=== PATIENT | male | born 1945 | race Caucasian/White ===

== ENCOUNTER 2022-04-03 11:06 | Outpatient (CLI) | payer MEDICARE, BC, SELFPAY ==
[2022-04-03 14:15] LABS: TSH With Reflex to FT4* 0.063 uIU/mL (0.270-4.200)
[2022-04-03 16:23] LABS: Free T4 Free Thyroxine* 1.32 ng/dL (0.70-1.85)
== END 2022-04-03 11:07 | disposition home or self-care (01) ==
LOC: NFLDREF 11:19
PROVIDERS: PCP Internal Medicine; Visit Provider Internal Medicine
DX: F03.90 Unspecified dementia, unspecified severity, without behavioral disturbance, psychotic disturbance, mood disturbance, and anxiety (principal); E11.9 Type 2 diabetes mellitus without complications; I10 Essential (primary) hypertension; R53.1 Weakness; E11.42 Type 2 diabetes mellitus with diabetic polyneuropathy; R53.83 Other fatigue
CPT/HCPCS: 84439; 84443

== ENCOUNTER 2022-04-07 12:56 | Outpatient (CLI) | payer MEDICARE, BC, SELFPAY ==
--- OUTSIDE RECORDS SUMMARY | 2022-04-29 15:02 | XMS_ITS | Encounter Summary ---
:1945 Author Organization [facility] Address [address] [place] [address] Care Team Providers Name Role Phone Unavailable Primary Care Provider Unavailable Encounter Details Date Type Department Care Team Description 07/30/2021 Orders Only Department of Sleep Medicine Juany Valladares M.D., in [facility] M.P.H [address] [place] [address] [place], [place] [phone] (Wo rk) Social History Tobacco Use Types Packs/Day Years Used Date Smoking Tobacco: Never Assessed Sex Assigned at Date Recorded Not on file documented as of this encounter Plan of Treatment Not on filedocumented as of this encounter Visit Diagnoses Not on filedocumented in this encounter
--- OUTSIDE RECORDS SUMMARY | 2022-04-29 15:02 | XMS_ITS | Encounter Summary ---
:1945 Author Organization [facility] Address [address] [place] [address] Care Team Providers Name Role Phone Unavailable Primary Care Provider Unavailable Reason for Referral Outpatient (Routine) - Closed Specialty Diagnoses / Procedures Referred By Contact Refer red To Contact Neurology Diagnoses Loss Memory Personality Change Juany Valladares M.D., [facility] M.P.H. [address] [place] [address] Referral ID Status Reason Start Date Expiration Date Visits Requ ested Visits Authorized [id number] Closed 11/07/2021 11/07/2022 1 1 TAL MARKETING EXECUTIVE Reason for Visit Reason Comments Memory Loss Follow up from Was seen for testing in [place] 10/16/21. Outpatient (Routine) - Closed Specialty Diagnoses / Procedures Referred By Contact Refer red To Contact Neurology Juany Valladares M.D ., M.P.H. [facility] [address] [place] [address] Referral ID Status Reason Start Date Expiration Date Visits Requ ested Visits Authorized [id number] Closed 07/31/2021 07/31/2022 1 1 Encounter Details Date Type Department Care Team Description 11/07/2021 Office Visit Department of Juany Valladares Loss Memor y (Primary Dx); Neurology in [place], M.P.H. Personality Change [place], [place] [address] [phone] Social History Tobacco Use Types Packs/Day Years Used Date Smoking Tobacco: Former Cigarettes Quit : 1980 Smokeless Tobacco: Never Sex Assigned at Date Recorded Not on file documented as of this encounter Last Filed Vital Signs Vital Sign Reading Time Taken Comments Blood Pressure 135/59 11/07/2021 12:51 PM DIGITAL MARKETING EXECUTIVE Pulse 74 11/07/2021 12:51 PM DIGITAL MARKETING EXECUTIVE Temperature - - Respiratory Rate - - Oxygen Saturation - - Inhaled Oxygen Concentration - - Weight 83.4 kg (183 lb 13.8 oz) 11/07/2021 12:51 PM DIGITAL MARKETING EXECUTIVE Height - - Body Mass Index 29.69 07/31/2021 12:55 PM DIGITAL MARKETING EXECUTIVE documented in this encounter Progress Notes Juany Valladares M.D., M.P.H. - 11/07/2021 1:00 PM CST SUBJECTIVE CHIEF COMPLAINT / REASON FOR VISIT Alex Olivas is a 76 y.o. male who presents for evaluation of Memory Loss (Follow up from /Was seen for testing in [place] 10/16/21.). HISTORY OF PRESENT ILLNESS This patient returns with his for follow-up after his neuropsychometric testing and MRI brain. No was initially concerned about the personality changes in apathy reflecting frontotemporal dementia. Dr. carmella Pérez completed his assessment and concluded that his performance was below expectationsbut his greatest difficulty was semantic fluency and reasonably argued that this might be due to hislanguage stick background, being a seneca speaker of [place]ian. He went on to say that he could not rule out the possibility of a progressive aphasia component but he was doubtful. He did think that the results likely reflected diminished executive function that might be associated with maximal involve the anterior brain regions. His MRI brain shows nonspecific but diffuse atrophy. The is frustrated that she feels like she has a child at home and express the several times during the visit. I suggested that we send this patient [place] a few remaining blood tests to prepare for that visit. The is in favor of this plan and the patient does not really express much preference either way. No past medical history on file. No past surgical history on file. MEDICATIONS: Current Outpatient Medications: ??? amoxicillin (AMOXIL) 500 mg capsule, Take 500 mg by mouth once. 2000 MG ONCE, Disp: , Rfl: ??? aspirin [address] tablet, Take 81 mg by mouth daily., Disp: , Rfl: ??? B complex-vitamins (BALANCE B-50) tablet, daily., Disp: , Rfl: ??? clotrimazole (LOTRIMIN) 1 % cream, Apply 1 application topically 2 (two) times a day. To affected area., Disp: , Rfl: ??? gabapentin (NEURONTIN) 300 mg capsule, Take 300 mg by mouth 2 (two) times a day. Take 600 mg twice A day., Disp: , Rfl: ??? hydroCHLOROthiazide (HYDRODIURIL) 25 mg tablet, Take 25 mg by mouth daily., Disp: , Rfl: ??? insulin glargine (Lantus Solostar U-100 Insulin) 100 unit/mL (3 mL) injection, Inject 24 Units under the skin at bedtime., Disp: , Rfl: ??? insulin lispro 100 unit/mL injection, 20 units subcutaneously daily patient states, Disp: , Rfl: ??? insulin lispro protamin-lispro (HumaLOG MIX 75-25 KwikPen) 100 unit/mL (75- 25) injection, 20 unit subq daily, Disp: , Rfl: ??? magnesium oxide (MAG-OX) 250 mg of magnesium tablet, Take 250 mg by mouth daily., Disp: , Rfl: ??? multivitamin tablet, Take 1 tablet by mouth daily., Disp: , Rfl: ??? naproxen (NAPROSYN) 500 mg tablet, Take 500 mg by mouth 2 (two) times a day., Disp: , Rfl: ??? omega-3 fatty acids-fish oil 340-1,000 mg per capsule, Take 1 capsule by mouth daily., Disp: , Rfl: ??? amLODIPine-benazepril (LOTREL) 10-20 mg per capsule, Take 1 capsule by mouth daily., Disp: , Rfl: ??? cephalexin (KEFLEX) 500 mg capsule, 2,000 mg once., Disp: , Rfl: ALLERGY: No Known Allergies No family history on file. Social History Socioeconomic History ??? Marital status: Spouse name: Not on file ??? Number of children: Not on file ??? Years of education: Not on file ??? Highest education level: Not on file Occupational History ??? Not on file Tobacco Use ??? Smoking status: Former Smoker Types: Cigarettes Quit date: 1980 Years since quittin.1 ??? Smokeless tobacco: Never Used Substance and Sexual Activity ??? Alcohol use: Not on file ??? Drug use: Not on file ??? Sexual activity: Not on file Other Topics Concern ??? Not on file Social History Narrative ??? Not on file Social Determinants of Health Financial Resource Strain: Not on file Food Insecurity: Not on file Transportation Needs: Not on file Physical Activity: Not on file Stress: Not on file Social Connections: Not on file Intimate Partner Violence: Not on file Housing Stability: Not on file @ OBJECTIVE Vitals: 11/07/21 1251 BP: 135/59 BP Location: Left arm Patient Position: Sitting Cuff Size: Large Pulse: 74 Weight: 83.4 kg PHYSICAL EXAM COGNITION: Alert and cooperative. CRANIAL NERVES: optical effects camera operator II-XII intact and symmetric. MOTOR: Full strength throughout the upper and lower extremities bilaterally both proximally and distally. Normal tone. No pronator drift. No tremor. REFLEXES: Normal and symmetric at the biceps, triceps, brachioradialis, knees, and ankles. SENSORY: normal sensation to touch CEREBELLAR: ARMs-normal GAIT: Normal Impression: Encounter Diagnoses Name Primary? Loss Memory Yes ??? Personality Change I have made a referral to see the neuro cognitive specially group and I will see them back after that evaluation is completed I explained that there may be additional testing including a PET scan as further evaluation continues. Reviewed the neuropsych testing gave him a printed copy along with the MRI which I reviewed both in terms of text into images. I personally spent 30 minutes in care of the patient today. Time includes both non face to face and face to face patient care. Juany Valladares M.D., M.P.H. TAL MARKETING EXECUTIVE documented in this encounter Plan of Treatment Scheduled Referrals Name Type Priority Associated Diagnoses Order [facility] Neurology - Outpatient Referral Routine Loss Memory Expected: Cognitive and Personality Change 11/07/19 dementia consult (Approximat miguel angel), (clinic) Expires: 02/04/2023 documented as of this encounter Results Creatinine with Estimated GFR (11/07/2021 1:45 PM DIGITAL MARKETING EXECUTIVE) athologist Signature Creatinine, P 0.89 0.74 - 1.35 11/07/2021 [place] mg/dL 4:04 PM DIGITAL MARKETING EXECUTIVE eGFR-Black/Afri >90 >=60 11/07/2021 [place] can Nigerian mL/min/BSA 4:04 PM DIGITAL MARKETING EXECUTIVE Comment: ----ADDITIONAL INFORMATION---- Estimated GFR calculated using the 2009 CKD_EPI creatinine equation. eGFR Non-Black/ 83 >=60 mL/min/BSA 4:04 PM DIGITAL MARKETING EXECUTIVE OWAT Comment: ----ADDITIONAL INFORMATION---- Estimated GFR calculated using the 2009 CKD_EPI creatinine equation. Specimen Anatomical Collection Method Collection Time Receive d Time (Source) Location / / Volume Laterality Blood (Blood, 11/07/2021 1:45 PM 11/07/19 3:32 Venous) DIGITAL MARKETING EXECUTIVE PM DIGITAL MARKETING EXECUTIVE Juany Valladares M.D., M.P.H. LAB BLOOD ADD-ON Performing Organization Address City/State/ZIP Code Phon e Number [facility] [address] [place] [address] [place] [address] System in [place] [address] Folate (11/07/2021 1:45 PM DIGITAL MARKETING EXECUTIVE) athologist Signature Folate, S >20.0 >=4.0 mcg/L 11/07/2021 AUST 10:26 PM DIGITAL MARKETING EXECUTIVE Comment: Biotin has been identified by the jarrod avila as a potential interfering substance. ??Higher concentr ations of biotin may be found in multivitamins, hair/nail supple ments, and workout supplements. ??If the result does not [facility] clinical observations, repeat testing after patient refrains fr om the use of supplements for at least 12 hours. Specimen Anatomical Collection Method Collection Time Receive d Time (Source) Location / / Volume Laterality Blood (Blood, 11/07/2021 1:45 PM 11/07/19 9:42 Venous) DIGITAL MARKETING EXECUTIVE PM DIGITAL MARKETING EXECUTIVE Juany Valladares M.D., M.P.H. LAB BLOOD ADD-ON Performing Organization Address City/State/ZIP Code Phon e Number [facility]- [address] [place] [address] [facility] [place] [address] [facility] [address] Vitamin B12 Assay (11/07/2021 1:45 PM DIGITAL MARKETING EXECUTIVE) athologist Signature Vitamin B12 [phone] 11/07/2021 AUST Assay, S ng/L 10:21 PM DIGITAL MARKETING EXECUTIVE Comment: Biotin has been identified by the jarrod avila as a potential interfering substance. ??Higher concentr ations of biotin may be found in multivitamins, hair/nail supple ments, and workout supplements. ??If the result does not ma tch clinical observations, repeat testing after patient refrains fr om the use of supplements for at least 12 hours. Specimen Anatomical Collection Method Collection Time Receive d Time (Source) Location / / Volume Laterality Blood (Blood, 11/07/2021 1:45 PM 11/07/19 9:42 Venous) DIGITAL MARKETING EXECUTIVE PM DIGITAL MARKETING EXECUTIVE Juany Valladares M.D., M.P.H. LAB BLOOD ADD-ON Performing Organization Address City/[facility]/ZIP Code Phon e Number [facility]- [address] [place] [address] [facility] [place] [address] [facility] [address] (ABNORMAL) Thyroid Function [place] (11/07/2021 1:45 PM DIGITAL MARKETING EXECUTIVE) athologist Signature TSH, Sensitive 0.2 (L) 0.3 - 4.2 11/07/2021 [place] mIU/L 4:48 PM DIGITAL MARKETING EXECUTIVE Specimen Anatomical Collection Method Collection Time Receive d Time (Source) Location / / Volume Laterality Blood (Blood, 11/07/2021 1:45 PM 11/07/19 3:32 Venous) DIGITAL MARKETING EXECUTIVE PM DIGITAL MARKETING EXECUTIVE Juany Valladares M.D., M.P.H. LAB BLOOD ADD-ON Performing Organization Address City/State/ZIP Code Phon e Number [facility]- [address] [place] [address] [place] [address] System in [place] [address] [facility] Potassium (11/07/2021 1:45 PM DIGITAL MARKETING EXECUTIVE) athologist Signature Potassium, P 4.4 3.6 - 5.2 11/07/2021 [place] mmol/L 4:04 PM DIGITAL MARKETING EXECUTIVE Specimen Anatomical Collection Method Collection Time Receive d Time (Source) Location / / Volume Laterality Blood (Blood, 11/07/2021 1:45 PM 11/07/19 3:32 Venous) DIGITAL MARKETING EXECUTIVE PM DIGITAL MARKETING EXECUTIVE Juany Valladares M.D., M.P.H. LAB BLOOD ADD-ON Performing Organization Address City/State/ZIP Code Phon e Number [facility]- [address] [place] [address] [place] [address] System in [place] [address] [facility] Sodium (11/07/2021 1:45 PM DIGITAL MARKETING EXECUTIVE) athologist Signature Sodium, P 141 135 - 145 11/07/2021 4:04 [place] mmol/L PM DIGITAL MARKETING EXECUTIVE Specimen Anatomical Collection Method Collection Time Receive d Time (Source) Location / / Volume Laterality Blood (Blood, 11/07/2021 1:45 PM 11/07/19 3:32 Venous) DIGITAL MARKETING EXECUTIVE PM DIGITAL MARKETING EXECUTIVE Juany Valladares M.D., M.P.H. LAB BLOOD ADD-ON Performing Organization Address City/State/ZIP Code Phon e Number [facility]- [address] [place] [address] [place] [address] System in [place] [address] CBC with Differential, Blood (11/07/2021 1:45 PM DIGITAL MARKETING EXECUTIVE) athologist Signature Hemoglobin 14.8 13.2 - 11/07/2021 FB60 16.6 g/dL 2:40 PM DIGITAL MARKETING EXECUTIVE Hematocrit 42.1 38.3 - 11/07/2021 FB60 48.6 % 2:40 PM DIGITAL MARKETING EXECUTIVE Erythrocytes 4.55 4.35 - 11/07/2021 FB60 5.65 2:40 PM DIGITAL MARKETING EXECUTIVE x10(12)/L MCV 92.5 78.2 - 11/07/2021 FB60 97.9 fL 2:40 PM DIGITAL MARKETING EXECUTIVE RBC Distrib Width 12.5 11.8 - 11/07/2021 FB60 14.5 % 2:40 PM DIGITAL MARKETING EXECUTIVE Platelet Count 139 135 - 317 11/07/2021 FB60 x10(9)/L 2:40 PM DIGITAL MARKETING EXECUTIVE Leukocytes 7.7 3.4 - 9.6 11/07/2021 FB60 x10(9)/L 2:40 PM DIGITAL MARKETING EXECUTIVE Neutrophils 5.33 1.56 - 11/07/2021 FB60 6.45 2:40 PM DIGITAL MARKETING EXECUTIVE x10(9)/L Lymphocytes 1.67 0.95 - 11/07/2021 FB60 3.07 2:40 PM DIGITAL MARKETING EXECUTIVE x10(9)/L Monocytes 0.54 0.26 - 11/07/2021 FB60 0.81 2:40 PM DIGITAL MARKETING EXECUTIVE x10(9)/L Eosinophils 0.12 0.03 - 11/07/2021 FB60 0.48 2:40 PM DIGITAL MARKETING EXECUTIVE x10(9)/L Basophils 0.01 0.01 - 11/07/2021 FB60 0.08 2:40 PM DIGITAL MARKETING EXECUTIVE x10(9)/L Specimen Anatomical Collection Method Collection Time Receive d Time (Source) Location / / Volume Laterality Blood (Blood, 11/07/2021 1:45 PM 11/07/19 22 1:45 Venous) DIGITAL MARKETING EXECUTIVE PM DIGITAL MARKETING EXECUTIVE Juany Valladares M.D., M.P.H. LAB BLOOD ADD-ON Performing Organization Address City/State/ZIP Code Phon e Number [facility]- [address] [place] [address] [facility] [address] [place] [address] System in [place] [address] documented in this encounter Visit Diagnoses Diagnosis Loss Memory - Primary Personality Change documented in this encounter
--- OUTSIDE RECORDS SUMMARY | 2022-04-29 15:02 | XMS_ITS | Encounter Summary ---
:1945 Author Organization [facility] Address [address] [place] [address] Care Team Providers Name Role Phone Elsewhere, Pcp Primary Care Provider Unavailable Reason for Visit Reason Comments Pre-visit Intake Encounter Details Date Type Department Care Team Description 01/21/2022 Clinical Communication Visit Review in Pr e-visit Intake [address] [id number] Social History Tobacco Use Types Packs/Day Years Used Date Smoking Tobacco: Former Cigarettes Quit : 1980 Smokeless Tobacco: Never Sex Assigned at Date Recorded Not on file documented as of this encounter Plan of Treatment Not on filedocumented as of this encounter Visit Diagnoses Not on filedocumented in this encounter Care Teams Investigation Division Captain Relationship Specialty Start Date End Date Elsewhere, Pcp PCP - General Internal Medicine 01/21/22 documented as of this encounter
--- OUTSIDE RECORDS SUMMARY | 2022-04-29 15:02 | XMS_ITS | Encounter Summary ---
:1945 Author Organization [facility] Address [address] [place] [address] Care Team Providers Name Role Phone Unavailable Primary Care Provider Unavailable Reason for Referral MRI/CAT/PET Scan (Routine) - Closed Specialty Diagnoses / Procedures Referred By Contact Refer red To Contact Radiology Diagnoses Loss Memory Ju[facility] Valladares M.D., [facility] [place] [facility] Procedures MR Brain without IV Contrast [place] MRI BRAIN WO CNTRST HC MRI BRAIN WO CNTRST M.P.H. [address] [place] [address] Referral ID Status Reason Start Date Expiration Date Visits Requ ested Visits Authorized [id number] Closed 07/31/2021 07/31/2022 1 1 CTOR OF PREMIUM SEAT SALES Reason for Visit MRI/CAT/PET Scan (Routine) - Closed Specialty Diagnoses / Procedures Referred By Contact Refer red To Contact Radiology Diagnoses Loss Memory Ju[facility] Valladares M.D., [facility] [place] [facility] Procedures MR Brain without IV Contrast [place] MRI BRAIN WO CNTRST HC MRI BRAIN WO CNTRST M.P.H. [address] [place] [address] Referral ID Status Reason Start Date Expiration Date Visits Requ ested Visits Authorized [id number] Closed 07/31/2021 07/31/2022 1 1 Encounter Details Date Type Department Care Team Description 08/08/2021 Hospital Encounter Department of Radiology Juany Valladares, Loss Memory in [facility] mona Chan, M.P.H. [address] [place] [address] [place] [phone] Social History Tobacco Use Types Packs/Day Years Used Date Smoking Tobacco: Former Cigarettes Quit : 1980 Smokeless Tobacco: Never Sex Assigned at Date Recorded Not on file documented as of this encounter Medications at Time of Discharge Medication Sig Dispensed Refills Start Date End Date amLODIPine-benazepril Take 1 capsule by 0 017 (LOTREL) 10-20 mg per mouth daily. capsule aspirin [address] tablet Take 81 mg by mouth 0 daily. B complex-vitamins daily. 0 (BALANCE B-50) tablet gabapentin (NEURONTIN) 300 Take 600 mg by mouth 0 03/23/2018 mg capsule 2 (two) times a day. Take 600 mg twice A day. hydroCHLOROthiazide Take 25 mg by mouth 0 021 (HYDRODIURIL) 25 mg tablet daily. insulin glargine (Lantus Inject 24 Units 0 2017 Solostar U-100 Insulin) under the skin at 100 unit/mL (3 mL) bedtime. injection insulin lispro 100 unit/mL 20 units 0 8 injection subcutaneously daily patient states insulin lispro 20 unit subq daily 0 05/02/2021 protamin-lispro (HumaLOG MIX 75-25 KwikPen) 100 unit/mL (75-25) injection magnesium oxide (MAG-OX) Take 250 mg by mouth 0 250 mg of magnesium tablet daily. multivitamin tablet Take 1 tablet by 0 04/10/2017 mouth daily. naproxen (NAPROSYN) 500 mg Take 500 mg by mouth 0 03/13/2021 tablet 2 (two) times a day. omega-3 fatty acids-fish Take 1 capsule by 0 09/2017 oil 340-1,000 mg per mouth daily. capsule amoxicillin (AMOXIL) 500 Take 500 mg by mouth 0 0 10/11/2020 01/21/2022 mg capsule once. 2000 MG ONCE cephalexin (KEFLEX) 500 mg 2,000 mg once. 0 12/1001/21/2022 capsule documented as of this encounter Plan of Treatment Not on filedocumented as of this encounter Procedures Procedure Name Priority Date/Time Associated Comments Diagnosis MR BRAIN WITHOUT RAD - Routine 08/08/2021 2:17 Loss Memory Results for this IV CONTRAST (most inpatients PM DIRECTOR OF PREMIUM SEAT SALES procedure a re in and all the results outpatients) section. documented in this encounter Results MR Brain without IV Contrast (08/08/2021 2:17 PM DIRECTOR OF PREMIUM SEAT SALES) Anatomical Region Laterality Modality Head, Brain, Neuroradiology RST LOS, Neuroradiology ARZ N/A Magnetic Resonance LOS, Neuroradiology FLA LOS Specimen (Source) Anatomical Collection Method Collection Time Re ceived Time Location / / Volume Laterality 08/08/2021 3:41 PM DIRECTOR OF PREMIUM SEAT SALES Impressions 08/08/2021 3:47 PM DIRECTOR OF PREMIUM SEAT SALES Moderate small vessel ischemic change and moderate-advanced cerebral and cerebellar parenchymal volume loss. Narrative 08/08/2021 3:47 PM DIRECTOR OF PREMIUM SEAT SALES EXAM: MR BRAIN WITHOUT IV CONTRAST COMPARISON: None. FINDINGS: Scattered areas of FLAIR signa l abnormality in the cerebral white matter most consistent with small vessel ischemic disease. Moderate-advanced cerebral and cerebellar parenchymal volu me loss. No restricted diffusion or abnormal hemo siderin deposition. The paranasal sinuses and mastoid air cells are clear. Procedure Note Gabriela Zepeda M.D. - 08/08/2021Forma tting of this note might be different from the original. EXAM: MR BRAIN WITHOUT IV CONTRAST COMPARISON: None. FINDINGS: Scattered areas of FLAIR signa l abnormality in the cerebral white matter most consistent with small vessel ischemic disease. Moderate-advanced cerebral and cerebellar parenchymal volu me loss. No restricted diffusion or abnormal hemo siderin deposition. The paranasal sinuses and mastoid air cells are clear. IMPRESSION: Moderate small vessel ischemic change an d moderate-advanced cerebral and cerebellar parenchymal volume loss. Juany Valladares M.D., M.P.H. IMG MRI PROCEDURES documented in this encounter Visit Diagnoses Diagnosis Loss Memory documented in this encounter
--- OUTSIDE RECORDS SUMMARY | 2022-04-29 15:02 | XMS_ITS | Encounter Summary ---
:1945 Author Organization [facility] Address [address] [place] [address] Care Team Providers Name Role Phone Unavailable Primary Care Provider Unavailable Encounter Details Date Type Department Care Team Description 11/07/2021 Hospital Encounter Department of Juany Valladares Mem; Laboratory Medicine Rocio Gould, Personal ity Change in [place] [facility] [place] [address] [place] [id number] Social History Tobacco Use Types Packs/Day Years [...] mg 2,000 mg once. 0 12/1001/21/2022 capsule clotrimazole (LOTRIMIN) 1 Apply 1 application 0 0 10/25/2021 01/21/2022 % cream topically 2 (two) times a day. To affected area. documented as of this encounter Plan of Treatment Not on filedocumented as of this encounter Procedures Procedure Name Priority Date/Time Associated Comments Diagnosis MD T4 FREE Routine 11/07/2021 1:45 PM Results f or this TASSEL MAKING MACHINE OPERATOR procedure are i n the results section. THYROID FUNCTION Routine 11/07/2021 1:45 PM Loss Memory Results for this CASCADE, S TASSEL MAKING MACHINE OPERATOR Personality Change procedure are in the results section. CBC WITH Routine 11/07/2021 1:45 PM Loss Memory Results for this DIFFERENTIAL, B TASSEL MAKING MACHINE OPERATOR Personality Change proced ure are in the results section. SODIUM, S/P Routine 11/07/2021 1:45 PM Loss Memory Results for this TASSEL MAKING MACHINE OPERATOR Personality Change procedure are in the results section. POTASSIUM, S/P Routine 11/07/2021 1:45 PM Loss Memory Results for this TASSEL MAKING MACHINE OPERATOR Personality Change procedure are in the results section. FOLATE, S Routine 11/07/2021 1:45 PM Loss Memory Results for this TASSEL MAKING MACHINE OPERATOR Personality Change procedure are in the results section. VITAMIN B12 ASSAY, S Routine 11/07/2021 1:45 PM Loss Mem ory Results for this TASSEL MAKING MACHINE OPERATOR Personality Change procedure are in the results section. CREATININE WITH Routine 11/07/2021 1:45 PM Loss Memory Results for this EGFR, S/P TASSEL MAKING MACHINE OPERATOR Personality Change procedure are in the results section. documented in this encounter Results T4 (Thyroxine), Free, Serum (11/07/2021 1:45 PM TASSEL MAKING MACHINE OPERATOR) athologist Signature T4 (Thyroxine), 1.2 0.9 - 1.7 11/07/2021 OWAT Free, S ng/dL 5:22 PM TASSEL MAKING MACHINE OPERATOR Comment: Biotin has been identified by the jarrod avila as a potential interfering substance. ??Higher concentr ations of biotin may be found in multivitamins, hair/nail supple ments, and workout supplements. ??If the result does not ma [facility] clinical observations, repeat testing after patient refrains fr om the use of supplements for at least 12 hours. Specimen Anatomical Collection Method Collection Time Receive d Time (Source) Location / / Volume Laterality Blood 11/07/2021 1:45 PM 3:32 TASSEL MAKING MACHINE OPERATOR PM TASSEL MAKING MACHINE OPERATOR Juany Valladares M.D., M.P.H. LAB BLOOD ADD-ON Performing Organization Address City/State/ZIP Code Phon e Number [facility]- [address] [place] [address] [place] [address] System in [place] [address] Creatinine with Estimated GFR (11/07/2021 1:45 PM TASSEL MAKING MACHINE OPERATOR) athologist Signature Creatinine, P 0.89 0.74 - 1.35 11/07/2021 [place] mg/dL 4:04 PM TASSEL MAKING MACHINE OPERATOR eGFR-Black/Afri >90 >=60 11/07/2021 [place] can [place] Citizen mL/min/BSA 4:04 PM TASSEL MAKING MACHINE OPERATOR Comment: ----ADDITIONAL INFORMATION---- Estimated GFR calculated using the 2009 CKD_EPI creatinine equation. eGFR Non-Black/ 83 >=60 mL/min/BSA 4:04 PM TASSEL MAKING MACHINE OPERATOR [facility] Comment: ----ADDITIONAL INFORMATION---- Estimated GFR calculated using the 2009 CKD_EPI creatinine equation. Specimen Anatomical Collection Method Collection Time Receive d Time (Source) Location / / Volume Laterality Blood (Blood, 11/07/2021 1:45 PM 11/07/19 3:32 Venous) TASSEL MAKING MACHINE OPERATOR PM TASSEL MAKING MACHINE OPERATOR Juany Valladares M.D., M.P.H. LAB BLOOD ADD-ON Performing Organization Address City/State/ZIP Code Phon e Number [facility]- [address] [place] [address] [place] [address] System in [place] [address] Folate (11/07/2021 1:45 PM TASSEL MAKING MACHINE OPERATOR) P athologist Signature Folate, S >20.0 >=4.0 mcg/L 11/07/2021 AUST 10:26 PM TASSEL MAKING MACHINE OPERATOR Comment: Biotin has been identified by the jarrod avila as a potential interfering substance. ??Higher concentr ations of biotin may be found in multivitamins, hair/nail supple ments, and workout supplements. ??If the result does not ma tc clinical observations, repeat testing after patient refrains fr om the use of supplements for at least 12 hours. Specimen Anatomical Collection Method Collection Time Receive d Time (Source) Location / / Volume Laterality Blood (Blood, 11/07/2021 1:45 PM 11/07/19 9:42 Venous) TASSEL MAKING MACHINE OPERATOR PM TASSEL MAKING MACHINE OPERATOR Juany Valladares M.D., M.P.H. LAB BLOOD ADD-ON Performing Organization Address City/State/ZIP Code Phon e Number [facility]- [address] [place] [address] [facility] [place], [place] [id number] [place] [address] Vitamin B12 Assay (11/07/2021 1:45 PM TASSEL MAKING MACHINE OPERATOR) P athologist Signature Vitamin B12 [phone] - 1245 11/07/2021 AUST Assay, S ng/L 10:21 PM TASSEL MAKING MACHINE OPERATOR Comment: Biotin has been identified by the jarrod avila as a potential interfering substance. ??Higher concentr ations of biotin may be found in multivitamins, hair/nail supple ments, and workout supplements. ??If the result does not ma tc clinical observations, repeat testing after patient refrains fr om the use of supplements for at least 12 hours. Specimen Anatomical Collection Method Collection Time Receive d Time (Source) Location / / Volume Laterality Blood (Blood, 11/07/2021 1:45 PM 11/07/19 9:42 Venous) TASSEL MAKING MACHINE OPERATOR PM TASSEL MAKING MACHINE OPERATOR Juany Valladares M.D., M.P.H. LAB BLOOD ADD-ON Performing Organization Address City/State/ZIP Code Phon e Number [facility]- [address] [place] [address] [facility] [place] [address] [facility] [address] (ABNORMAL) Thyroid Function Cache (11/07/2021 1:45 PM TASSEL MAKING MACHINE OPERATOR) athologist Signature TSH, Sensitive 0.2 (L) 0.3 - 4.2 11/07/2021 [place] mIU/L 4:48 PM TASSEL MAKING MACHINE OPERATOR Specimen Anatomical Collection Method Collection Time Receive d Time (Source) Location / / Volume Laterality Blood (Blood, 11/07/2021 1:45 PM 11/07/19 3:32 Venous) TASSEL MAKING MACHINE OPERATOR PM TASSEL MAKING MACHINE OPERATOR Juany Valladares M.D., M.P.H. LAB BLOOD ADD-ON Performing Organization Address City/State/ZIP Code Phon e Number [facility]- [address] [place] [facility] [place] [address] [place] [address] System in [place] [address] Potassium (11/07/2021 1:45 PM TASSEL MAKING MACHINE OPERATOR) athologist Signature Potassium, P 4.4 3.6 - 5.2 11/07/2021 [place] mmol/L 4:04 PM TASSEL MAKING MACHINE OPERATOR Specimen Anatomical Collection Method Collection Time Receive d Time (Source) Location / / Volume Laterality Blood (Blood, 11/07/2021 1:45 PM 11/07/19 3:32 Venous) TASSEL MAKING MACHINE OPERATOR PM TASSEL MAKING MACHINE OPERATOR Juany Valladares M.D., M.P.H. LAB BLOOD ADD-ON Performing Organization Address City/State/ZIP Code Phon e Number [facility]- [address] [place] [address] [place] [address] System in [place] [address] Sodium (11/07/2021 1:45 PM TASSEL MAKING MACHINE OPERATOR) athologist Signature Sodium, P 141 135 - 145 11/07/2021 4:04 [place] mmol/L PM TASSEL MAKING MACHINE OPERATOR Specimen Anatomical Collection Method Collection Time Receive d Time (Source) Location / / Volume Laterality Blood (Blood, 11/07/2021 1:45 PM 11/07/19 3:32 Venous) TASSEL MAKING MACHINE OPERATOR PM TASSEL MAKING MACHINE OPERATOR Juany Valladares M.D., M.P.H. LAB BLOOD ADD-ON Performing Organization Address City/State/ZIP Code Phon e Number [facility]- [address] [place] [address] [facility] [place] [address] System in [place] [address] [facility] CBC with Differential, Blood (11/07/2021 1:45 PM TASSEL MAKING MACHINE OPERATOR) athologist Signature Hemoglobin 14.8 13.2 - 11/07/2021 FB60 16.6 g/dL 2:40 PM TASSEL MAKING MACHINE OPERATOR Hematocrit 42.1 38.3 - 11/07/2021 FB60 48.6 % 2:40 PM TASSEL MAKING MACHINE OPERATOR Erythrocytes 4.55 4.35 - 11/07/2021 FB60 5.65 2:40 PM TASSEL MAKING MACHINE OPERATOR x10(12)/L MCV 92.5 78.2 - 11/07/2021 FB60 97.9 fL 2:40 PM TASSEL MAKING MACHINE OPERATOR RBC Distrib Width 12.5 11.8 - 11/07/2021 FB60 14.5 % 2:40 PM TASSEL MAKING MACHINE OPERATOR Platelet Count 139 135 - 317 11/07/2021 FB60 x10(9)/L 2:40 PM TASSEL MAKING MACHINE OPERATOR Leukocytes 7.7 3.4 - 9.6 11/07/2021 FB60 x10(9)/L 2:40 PM TASSEL MAKING MACHINE OPERATOR Neutrophils 5.33 1.56 - 11/07/2021 FB60 6.45 2:40 PM TASSEL MAKING MACHINE OPERATOR x10(9)/L Lymphocytes 1.67 0.95 - 11/07/2021 FB60 3.07 2:40 PM TASSEL MAKING MACHINE OPERATOR x10(9)/L Monocytes 0.54 0.26 - 11/07/2021 FB60 0.81 2:40 PM TASSEL MAKING MACHINE OPERATOR x10(9)/L Eosinophils 0.12 0.03 - 11/07/2021 FB60 0.48 2:40 PM TASSEL MAKING MACHINE OPERATOR x10(9)/L Basophils 0.01 0.01 - 11/07/2021 FB60 0.08 2:40 PM TASSEL MAKING MACHINE OPERATOR x10(9)/L Specimen Anatomical Collection Method Collection Time Receive d Time (Source) Location / / Volume Laterality Blood (Blood, 11/07/2021 1:45 PM 11/07/19 1:45 Venous) TASSEL MAKING MACHINE OPERATOR PM TASSEL MAKING MACHINE OPERATOR Juany Valladares M.D., M.P.H. LAB BLOOD ADD-ON Performing Organization Address City/State/ZIP Code Phon e Number [facility] [address] [place] [address] [facility] [address] [place] [address] System in [address] documented in this encounter Visit Diagnoses Diagnosis Loss Memory Personality Change documented in this encounter
--- OUTSIDE RECORDS SUMMARY | 2022-04-29 15:02 | XMS_ITS | Encounter Summary ---
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 [address] [place] [address] Referral ID Status Reason Start Date Expiration Date Visits Requ ested Visits Authorized [id number] Closed 01/22/2022 01/22/2023 1 1 Outpatient (Routine) - Authorized Specialty Diagnoses / Procedures Referred By Contact Refer red To Contact Neurology [place] Bailon M. D., Ph.D. 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 [address] [place] [address] Referral ID Status Reason Start Date Expiration Date Visits V isits Requested Authorized [id number] Authorized 01/22/2022 01/22/2023 6 6 Reason for Visit Outpatient (Routine) - Closed Specialty Diagnoses / Procedures Referred By Contact Refer red To Contact Neurology Diagnoses Loss Memory Personality Change Juany Valladares M.D., [facility] [address] [phone] Referral ID Status Reason Start Date Expiration Date Visits Requ ested Visits Authorized [id number] Closed 11/07/2021 11/07/2022 1 1 Encounter Details Date Type Department Care Team Description 01/22/2022 Comprehensive Visit Department of Vaughn Bailon eurocognitive Disorder Without Behavior Disturbance (HCC); Neurology in [place], Snoring; Rocio Fontenot, Ph.D. Loss Hearing Bilateral [place] [address] [place] [address] [phone] Social History Tobacco Use Types Packs/Day Years Used Date Smoking Tobacco: Former Cigarettes Quit : 1980 Smokeless Tobacco: Never Sex Assigned at Date Recorded Not on file documented as of this encounter Consult Notes [place] Bailon M.D., Ph.D. - 01/22/2022 2:00 PM CDT Alex Olivas is a 76 y.o. man from [place] referred by Dr. Valladares for cognitive concerns, accompanied by his . 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 For the last 2 years there have been slowly progressive changes in personality/behavior (less interactive, less communicative, less empathetic, needs frequentprompting, lost interest in activities that he used to engage in such as gardening) and cognition (doesn't read as much as before, hesitant to use the computer, forgetful). He spends much of the day either sleeping or watching television. He no longer drives and his manages the home finances and oversees medications. She describes him overall as like a child in needing support and supervision,which is very different from his usual baseline. When asked he indicates that he agrees with her assessment, but does not really elaborate and it is unclear how much insight he truly has into these issues. In the background, he snores at night but has no dream enactment, and he has hearing loss observed by family. No other neuropsychiatric, sleep, motor, or autonomic symptoms of concern, and comprehensive review of systems was negative except as otherwise noted. For these issues he saw Dr. Valladares. MMSE was noted in July 2021. Dr. Valladares's note indicatesa suspicion for frontotemporal dementia. Neuropsychological testing, MRI, and this visit were ordered. [facility], -2 digit, -3 trials, -1 learn, -4 calculation, -1 construction, -3 recall). He was observably hard of hearing during the encounter. Unable to do the Luria. No parkinsonism, ataxia, or clear cut apraxia. Posture with gait was slightly stooped forward, but gait was othe rwise unremarkable. Remainder of the exam encompassing mental status, speech, language, cranial nerves, strength, tone, AMRs, sensation, coordination, reflexes, and gait was unremarkable. Diagnostics B12 and TSH unremarkable. Brain MRI shows atrophy in more of a generalized distribution (though I think with a parietal predominance) and likely with a degree of superimposed extraventricular CSF pocketing. The hippocampi are slightly asymmetric with the left appearing of lesser caliber than the right. Neuropsychological testing was felt abnormal relative to expectations, though his linguistic background was an impediment to assessing this in great detail. #1 Mild dementia #2 Snoring #3 Hearing Summary: 76 y.o. man seen for about 2 years of slowly progressive behavioral (mostly apathy/abulia in the description) and cognitive decline. He had objective impairment on office cognitive screening and on neuropsychological testing. With his high functioning background and the very clear descriptions of a profound change noted by his ,I am reluctant to think that these issues are entirely explained by linguistic differences. In addition, he could well have sleep apnea and appears to have hearing loss which could be admixed factors, but I do not think these would be fully explanatory. That backdrop and signs of atrophy on his brain MRI (along with ruling out of potentially reversible systemic and intracranial structural factors), the leading concern is for an underlying neurodegenerative disease, with Alzheimer's disease being theleading candidate in my mind but a frontotemporal disorder being an alternative. He does not have any classical clinical features to suggest Lewy body disease though in theory this could be possible. Irecommended further testing to help confirm the suspected diagnosis and clarify future management and expectations. Plan 1. Brain FDG PET to differentiate AD versus FTD versus DLB. 2. I suggested that he work with his local physicians to update hearing test, and treat as indicated. I also suggested that his local physicians screen him for sleep apnea and treat if present. 3. Baseline EKG. They appreciated the visit and agreed with the plan. Return after testing. documented in this encounter Plan of Treatment Scheduled Orders Name Type Priority Associated Diagnoses Order S chedule PET CT Brain Imaging RAD - Routine (most Major Neurocognitive Expected: Metabolic inpatients and all Disorder Without 01/22 Evaluation outpatients) Behavior Disturbance (Approx imate), (HCC) Expires: 01/22/2023 Scheduled Referrals Name Type Priority Associated Diagnoses Order S chedule Neurology office Outpatient Referral Routine Expe cted: visit (clinic) 01/22/2022 (Approximate), Expires: 04/24/2023 documented as of this encounter Results ECG 12 Lead (01/22/2022 3:03 PM CDT) P athologist Signature Ventricular Rate 74 BPM MUSE ECG/Min MD Interval 230 ms MUSE QRSD Interval 90 ms MUSE QT Interval 372 ms MUSE QTC Interval 412 ms MUSE P [place] 75 degrees MUSE R [place] -12 degrees MUSE T Wave [place] 63 degrees MUSE Specimen Anatomical Collection Method Collection Time Receive d Time (Source) Location / / Volume Laterality 01/22/2022 3:03 PM 2 3:08 CDT PM CDT Impressions MUSE - 01/22/2022 3:08 PM CDT Sinus rhythm with 1st degree A-V block Low voltage QRS Anterior infarct No previous ECGs available Reviewed by SHAMIKA Garcia Narrative This result has an attachment that is no t available. Procedure Note Jentzer, Satya C, M.D. - 01/22/2022Forma tting of this note might be different from the original. IMPRESSION: Sinus rhythm with 1st degree A-V block Low voltage QRS Anterior infarct No previous ECGs available Reviewed by SHAMIKA Garcia [place] Bailon M.D., Ph.D. 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
--- OUTSIDE RECORDS SUMMARY | 2022-04-29 15:02 | XMS_ITS | Encounter Summary ---
:1945 Author Organization [facility] Address [address] [place] [address] Care Team Providers Name Role Phone Unavailable Primary Care Provider Unavailable Reason for Referral Outpatient (Routine) - Closed Specialty Diagnoses / Procedures Referred By Contact Refer red To Contact Neurology Juany Valladares M.D ., M.P.H. [facility] Region [address] [place] [phone] Referral ID Status Reason Start Date Expiration Date Visits Requ ested Visits Authorized [id number] Closed 07/31/2021 07/31/2022 1 1 TIFICATION OFFICER Behavioral Health (Routine) - Closed Specialty Diagnoses / Procedures Referred By Contact Refer red To Contact Psychology / Diagnoses Loss Memory Personality Change [facility] Psych[facility] and Procedures PSY Neuropsychology testing Rocio, M.P.H. Psychology [address] [phone] Referral ID Status Reason Start Date Expiration Date Visits Requ ested Visits Authorized [id number] Closed 07/31/2021 07/31/2022 1 1 TIFICATION OFFICER MRI/CAT/PET Scan (Routine) - Closed Specialty Diagnoses / Procedures Referred By Contact Refer red To Contact Radiology Diagnoses Loss Memory Juany Valladares M.D., [facility] Region Procedures MR Brain without IV Contrast [place] MRI BRAIN WO [facility]TRST HC MRI BRAIN WO [facility]ST M.P.[facility] [address] [place] [phone] Referral ID Status Reason Start Date Expiration Date Visits Requ ested Visits Authorized [id number] Closed 07/31/2021 07/31/2022 1 1 TIFICATION OFFICER Reason for Visit Reason Comments Memory Loss Ref. Dr. Curry [facility] Appointment Request (Routine) - Closed Specialty Diagnoses / Procedures Referred By Contact Refer red To Contact Neurology Referral ID Status Reason Start Date Expiration Date Visits Requ ested Visits Authorized [id number] Closed 06/06/2021 06/06/2022 1 1 Encounter Details Date Type Department Care Team Description 07/31/2021 Comprehensive Visit Department of Juany Valladares (Primary Dx); Neurology in [place], [facility] [place], [place] M.P.H. [address] [place] [phone] [place], [place] [phone] Social History Tobacco Use Types Packs/Day Years Used Date Smoking Tobacco: Former Cigarettes Quit : 1980 Smokeless Tobacco: Never Sex Assigned at Date Recorded Not on file documented as of this encounter Last Filed Vital Signs Vital Sign Reading Time Taken Comments Blood Pressure 135/61 07/31/2021 1:06 PM IDENTIFICATION OFFICER Pulse 69 07/31/2021 1:06 PM IDENTIFICATION OFFICER Temperature - - Respiratory Rate - - Oxygen Saturation - - Inhaled Oxygen Concentration - - Weight 82.9 kg (182 lb 12.2 oz) 07/31/2021 12:55 PM IDENTIFICATION OFFICER Height 167.6 cm (5' 5.98) 07/31/2021 12:55 PM IDENTIFICATION OFFICER Body Mass Index 29.51 07/31/2021 12:55 PM IDENTIFICATION OFFICER documented in this encounter Patient Instructions Patient InstructionsMoJuany anderson M.D., M.P.H. - 07/31/2021 1:00 PM IDENTIFICATION OFFICER Images from the original note were not included. Patient Education Frontotemporal Dementia (FTD) Introduction You may be receiving this information because you or a family member has been diagnosed with frontotemporal dementia (FTD). Your loved one???s health care provider may have used a term other than FTD to describe the diagnosis. This term might be the name of one of the subtypes of FTD, of which there are many. This material is meant to help you understand this diagnosis, what you can expect and what you can do to help. What is dementia? Dementia is a medical term used to describe a set of symptoms caused by changes in the brain due to disease or injury. Most dementia symptoms occur in people because healthy brain tissue deteriorates, causing a decline in memory and mental abilities. Symptoms of dementia usually include: ?? Memory loss. ?? Impaired thinking, reasoning and language skills. ?? Personality changes. Dozens of disorders can cause dementia; some are curable, but many are not. Alzheimer???s disease isthe most common cause of incurable dementia. Another less well-known incurable cause of dementia is frontotemporal dementia (FTD). This material describes: ?? What is FTD? ?? Is FTD inherited? ?? What are the symptoms? ?? How is FTD diagnosed? ?? What is the treatment for FTD? ?? Resources for people with FTD and their caregivers If you have questions about FTD after reading this material, talk with a member of your loved one???s health care team. What Is Frontotemporal Dementia? Frontotemporal dementia (FTD) is a neurodegenerative disorder. That means it is caused by the loss of -- or damage to -- nerve cells (neurons) in the brain. The human brain is divided into two hemispheres and each hemisphere has four areas called lobes. Each lobe is responsible for different brain functions. Two of these lobes are the frontal and temporal.The frontal lobe is responsible for personality, problem solving ability, abstract thought and movement. These are often called ???executive functions.?? The temporal lobe is responsible for naming, language comprehension, perception, memory and hearing. When FTD damages the neurons in these two lobes, the result is loss of many of the functions these two lobes are responsible for. Memory loss usually happens, but that is often later in the disease process. About FTD: ?? FTD usually occurs between the ages of 30 and 70. The average age of onset is about 60. ?? About 5 percent of all dementia cases are FTD. ?? The disease affects men and women equally. ?? FTD is caused by the loss of the neurons on the frontal and temporal part of the brain, but what causes the loss of neurons is usually unknown. ?? A small number of people with FTD have the presence of Pick bodies, abnormal protein-filled structures that develop within cells. All cases of FTD used to be called Pick???s disease, but now that name is reserved for the subtype that features Pick bodies. ?? In some forms of FTD (and Alzheimer???s disease as well), tau, a protein normally present in brain cells, is in brain tissue in unusual amounts. This leads to the buildup of abnormal tau proteins within cells, resulting eventually in the of neurons. Dementias with tau abnormalities are calledtauopathies. ?? FTD is progressive; that means, symptoms will get worse over time. The person with FTD will become dependent on others for activities of daily living. Is FTD Inherited? About 20 to 50 percent of people who have FTD also have a family history of some type of dementia (although not necessarily FTD), some type of Parkinsonism, or amyotrophic lateral sclerosis (ALS or LouGehrig???s disease). The rest are sporadic, meaning there???s no family history of FTD or any other kind of neurodegenerative disorder. Some subtypes (see ???What Are the Subtypes of FTD??? ), such as frontotemporal dementia with Parkinsonism linked to chromosome 17 (FTDP-17), have been linked by researchers to abnormalities in the genes tau and progranulin. The child of a parent who has FTDP-17 has a 50 percent chance of inheriting the disease-causing gene. Ask your health care provider about talking with a genetic counselor if you would like to know more about the risk for relatives of a person with FTD. What Are the Subtypes of FTD? Within the general diagnosis of FTD, health care providers may diagnose a subtype. These subtypes are categorized by their symptoms. One subtype is Pick???s disease and in the past, this term was used to describe all types of FTD. New research has shown, however, that Pick???s disease is only one type. Others include: ?? Primary progessive aphasia (PPA). ?? Corticobasal syndrome (CBS) or corticobasal degeneration (CBD). ?? Frontotemporal dementia with Parkinsonism linked to chromosome 17 (FTDP-17). ?? Frontotemporal dementia with motor neuron disease (FTD/MND). ?? Semantic dementia. In addition, one of the subtypes of FTD is also called behavioral variant frontotemporal dementia, which is the main subtype described in this pamphlet. If your family member has been diagnosed with FTD, ask your health care provider about what subtype it is and about what you can expect. What Are the Symptoms of FTD? Symptoms of FTD vary greatly from one person to the next. Not everyone experiences all the symptoms the same way or at the same time. Unlike some other forms of dementia, memory loss usually comes later in FTD. Some people with FTD never lose memory. Very few have memory loss in the beginning stages of the disease. Usually, reasoning and judgment problems appear first. Symptoms can include: ?? Becoming emotionally blunted, often showing no emotion. A person with FTD may appear insensitive or uncaring. ?? Acting inappropriately such as talking to strangers as if they know them or touching them inappropriately. People with FTD might say things that are socially unacceptable because they can???t monitor their own conversation and they laugh at times when they shouldn???t. ?? Having mood swings, going from giddiness to depression. ?? Demonstrating repetitive compulsive behavior. People with FTD may eat the same food over and over, or watch the same TV shows, or think of a goal and then go out of their way to accomplish that goal. ?? Appearing self absorbed. They may show a lack of awareness of their own disease and lack of awareness of other people???s feelings. Depending on the subtype of FTD, physical symptoms may eventually include swallowing problems, slow movements, rigidity, involuntary hand movements, muscle weakness, muscle spasms and muscle atrophy. How Is FTD Diagnosed? No single test can accurately diagnose FTD. A health care provider uses the results from many tests,ruling out other possible causes, and narrowing it down to a diagnosis of FTD. To make a diagnosis, a health care provider uses: ?? Information from a detailed medical and family history and examination. ?? Results from brain imaging exams such as: ? Magnetic resonance imaging (MRI) or computed tomography (CT) to check for shrinkage of the frontaland temporal lobes. ? Single photon emission computed tomography (SPECT) or positron emission tomography (PET scans) to evaluate brain activity. ?? Results from neurological exams including testing awareness, reflexes and coordination. ?? Results from neuropsychological testing. This testing assesses memory, reasoning, judgment, problem-solving ability, language skills and visuospatial orientation. Health care providers use all the information from the testing listed here and puts them together tomake a diagnosis of FTD and of what subtype it may be. Sometimes, as the disease progresses and new symptoms appear, the subtype diagnosis may change. How Is FTD Treated? There is no cure for FTD and no specific therapy to slow the disease???s progression. The goal of treatment then is to manage the symptoms of the disease while trying to improve or maintain your familymember???s daily functioning and quality of life. Medications that may be used to manage symptoms include: Selective serotonin reuptake inhibitors (SSRIs) -- Used to improve lack of inhibition, apathy, overeating and compulsive behavior. Antipsychotics -- Used to manage agitated, aggressive or inappropriate sexual behavior. Tranquilizers -- Used to help treat agitation or hyperactive behaviors. Other treatments that may help: Behavioral therapies -- Various techniques can be used to manage the behavioral problems FTD causes.For example, setting up routines and offering supportive guidance can be helpful in dealing with aggressive or inappropriate actions. Nutritional support -- People who have the FTD/MND subtype may have swallowing problems. Dietitians can make recommendations about foods that are both nutritious and easy to swallow. Speech therapy -- A speech therapist can help your loved one adjust to the language difficulties andlearn other ways to communicate. Try these things to help you cope with your loved one???s behavior: Have realistic expectations. Be as patient as possible. Keep surroundings simple and consistent. Encourage your loved one to get enough sleep. Be good to yourself; seek support. Resources for People With FTD and Their Caregivers The most important resources for someone with FTD often are friends and family members. Members of the health care team also can provide support and help in understanding the physical and emotional challenges FTD can pose to individuals who have the disease and to their caregivers. Community resources Below are community services that may be available to people who have FTD and to their families: ?? client services specialist ? Public health services ? Nonmedical home care services ? Home health care services ? Respite care or adult care centers ? Senior companions ? Assisted care and memory care living centers ? State-funded care giving programs ? Hospice services ? Care giving education programs and support groups Financial help may be available for medical services from the following groups ?? Personal health insurance ?? Disability programs ?? Medicare ?? Medicaid ?? Social Security (SSI) Not all options are available to everyone. Ask a member of the health care team for more information. Caregiver support Caregivers play a special and important role in the life of someone with FTD. The assistance, support, encouragement and companionship provided by friends and family members often allow people with FTDto enjoy a better quality of life than they could on their own. Providing ongoing assistance can be challenging, however, and may require significant time and energy, particularly as the disease progresses. Caregivers do not have to handle all the responsibilities alone. Various resources are available to help caregivers. For more information, ask a member of your health care team for information about addressing the challenges of caregiving and avoiding caregiver burnout, as well as information about support groups andother caregiver resources. Organizations Alzheimer???s disease research center conduct research on dementia- related disorders and offers education and support to individuals who have dementia and to their families. For more information about a research center, talk to a member of your health care team. The following organizations also can provide support, education and information: Alzheimer???s Association Alzheimer???s Disease Education and Referral Center Family Caregiver [place] National [employer] of Neurological Disorder and Stroke For more information, the following organizations have websites, which your health care provider does not write, sponsor or endorse. Your health care provider cannot guarantee the accuracy of the information contained on these sites. The following information is provided for general education and infor mation only, and should not be relied upon for personal diagnosis or treatment. ?? Healthfinder ?? MedlinePlus The primary organization devoted to FTD is the Association for Frontotemporal Dementias. You can call them or go to their website. Conclusion Receiving a diagnosis of FTD can be frightening and difficult. The disease can have a major impact on an individual, family members and friends. While there is no cure yet for this disease, there are many ways to manage the symptoms of FTD to improve quality of life. Knowing the resources and options available can help as you make necessary choices about care. Asking questions, addressing concerns and working with your physician and other members of the health care team can help you cope with the challenges of FTD and approach the future realistically. For further information about dementia -- its causes, risk factors, symptoms and management, as wellas more details on resources and coping strategies -- ask a member of your health care team for additional resources. Just by reading this material, you have taken a big step in preparing yourself for dealing with FTD.Understanding the terms and knowing what to expect can take some of the stress away, but not all. Besure to take care of yourself as well. If you have questions about FTD or the information in this material, talk with a member of your loved one???s health care team. This material is for your education and information only. This content does not replace medical advice, diagnosis or treatment. New medical research may change this information. If you have questions about a medical condition, always talk with your health care provider. ? 2007 [facility] Medical Education and Research ([facility]). All rights reserved. [id number] TIFICATION OFFICER documented in this encounter Consult Notes Juany Valladares M.D., M.P.H. - 07/31/2021 1:00 PM CST SUBJECTIVE CHIEF COMPLAINT / REASON FOR VISIT Alex Olivas is a 76 y.o. male who presents for evaluation of Memory Loss (Ref. Dr. Curry [facility]). HISTORY OF PRESENT ILLNESS This patient presents for evaluation of ???memory concerns on from [facility]. The historyis primarily obtained from the as the patient, given the opportunity rarely speaks. The couple is from [place] and the 's [place] is [place] the both the quite fluent in [place]. The states that although he does not remember things as well as he had ie, names and dates, it is really has personality change and one of apathy that is become a bigger problem. She says he is not a trust where the two pay bills anymore and he has fallen behind on mortgage bills She says he is just not the same as he used to be. She says it is like having a child. She says he never complains nor does he show any interest toward oozy as him about anything any longer. 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 He does not have any tremor, he does not have any dream enactment. There are no falls. He has not had any neuro imaging. The has given the extensive history about the difficulties that they have given [place] and the fact that they have a child in [place] and a child schizophrenia here but that they can not go back to [place] where they have other family. No past medical history on file. No past surgical history on file. MEDICATIONS: Current Outpatient Medications: ??? amLODIPine-benazepril (LOTREL) 10-20 mg per capsule, Take 1 capsule by mouth daily., Disp: , Rfl: ??? amoxicillin (AMOXIL) 500 mg capsule, Take 500 mg by mouth once. 2000 MG ONCE, Disp: , Rfl: ??? aspirin [address] tablet, Take 81 mg by mouth daily., Disp: , Rfl: ??? B complex-vitamins (BALANCE B-50) tablet, daily., Disp: , Rfl: ??? cephalexin (KEFLEX) 500 mg capsule, 2,000 mg once., Disp: , Rfl: ??? gabapentin (NEURONTIN) 300 mg capsule, Take 300 mg by mouth 2 (two) times a day. Take 600 mg twice A day., Disp: , Rfl: ??? insulin glargine (Lantus Solostar U-100 Insulin) 100 unit/mL (3 mL) injection, Inject 24 Units under the skin at bedtime., Disp: , Rfl: ??? insulin lispro (HumaLOG KwikPen Insulin) 100 unit/mL injection, 20 units subcutaneously daily [...] capsule by mouth daily., Disp: , Rfl: ALLERGY: No Known Allergies No family history on file. Social History Socioeconomic History ??? Marital status: Spouse name: Not on file ??? Number of children: Not on file ??? Years of education: Not on file ??? Highest education level: Not on file Occupational History ??? Not on file Tobacco Use ??? Smoking status: Former Smoker Types: Cigarettes Quit date: 1981 Years since quittin.8 ??? Smokeless tobacco: Never Used Substance and [...] Stability: Not on file @ OBJECTIVE Vitals: 07/31/21 1255 07/31/21 1306 BP: 158/61 135/61 BP Location: Left arm Left arm Patient Position: Sitting Sitting Cuff Size: Regular Regular Pulse: 70 69 Weight: 82.9 kg Height: 167.6 cm PHYSICAL EXAM COGNITION: Alert and oriented x 4. He is a quite apathetic and shows little initiative at the visit.The provides her treat all the history. His Folstein mini-mental status examination score was 28/30. He could only recall two of three words and one of was unable to repeat the phrase ???no ifs and or buts?? CRANIAL NERVES: color consultant II-XII intact and symmetric. MOTOR: Full strength throughout the upper and lower extremities bilaterally both proximally and distally. Normal tone. No pronator drift. No tremor. REFLEXES: Normal and symmetric at the biceps, triceps, brachioradialis, knees, and ankles. SENSORY: normal sensation to touch CEREBELLAR: ARMs-normal GAIT: Normal He does not show any frontal release signs. Impression: Encounter Diagnoses Name Primary? Loss Memory Yes ??? 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 I am going to get an MRI brain and I have ordered neuropsych testing on this patient. Will plan to see him back after those two studies are completed. I personally spent 60 minutes in care of the patient today. Time includes both non face to face and face to face patient care. Juany Valladares M.D., M.P.H. TIFICATION OFFICER documented in this encounter Plan of Treatment Scheduled Referrals Name Type Priority Associated Diagnoses Order S [facility] Neurology office Outpatient Referral Routine Expe cted: visit (clinic) 10/23/2021 (Approximate), Expires: 07/31/2024 documented as of this encounter Results MR Brain without IV Contrast (08/08/2021 2:17 PM IDENTIFICATION OFFICER) Anatomical Region Laterality Modality Head, Brain, Neuroradiology RST LOS, Neuroradiology ARZ N/A Magnetic Resonance LOS, Neuroradiology FLA LOS Specimen (Source) Anatomical Collection Method Collection Time Re ceived Time Location / / Volume Laterality 08/08/2021 3:41 PM IDENTIFICATION OFFICER Impressions 08/08/2021 3:47 PM IDENTIFICATION OFFICER Moderate small vessel ischemic change and moderate-advanced cerebral and cerebellar parenchymal volume loss. Narrative 08/08/2021 3:47 PM IDENTIFICATION OFFICER EXAM: MR BRAIN WITHOUT IV CONTRAST COMPARISON: [...] Diagnosis Loss Memory - Primary Personality Change Loss Memory documented in this encounter
--- OUTSIDE RECORDS SUMMARY | 2022-04-29 15:02 | XMS_ITS | Clinical Summary ---
:1945 Author Organization [facility] Address [address] [place] [address] Care Team Providers Name Role Phone Elsewhere, Pcp Primary Care Provider Unavailable Source Comments Patient records contain information from all sites at [facility]. For routine questions regarding patient records, call [phone] during business hours, M-F 8:00 AM - 5:00 PM Central Time. Record requests for emergency care only can be directed to [phone] at any time.[facility] Allergies No known active allergies Medications Medication Sig Dispensed Refills Start End Date Status Date insulin lispro 20 unit subq daily 0 Active protamin-lispro (HumaLOG 1 MIX 75-25 KwikPen) 100 unit/mL (75-25) injection gabapentin (NEURONTIN) Take 600 mg by 0 Active 300 mg capsule mouth 2 (two) times 8 a day. Take 600 mg twice A day. amLODIPine-benazepril Take 1 capsule by 0 Active (LOTREL) 10-20 mg per mouth daily. 7 capsule naproxen (NAPROSYN) 500 Take 500 mg by 0 Active mg tablet mouth 2 (two) times 1 a day. insulin glargine (Lantus Inject 24 Units 0 Active Solostar U-100 Insulin) under the skin at 8 100 unit/mL (3 mL) bedtime. injection B complex-vitamins daily. 0 A ctive (BALANCE B-50) tablet magnesium oxide (MAG-OX) Take 250 mg by 0 Active 250 mg of magnesium mouth daily. tablet omega-3 fatty acids-fish Take 1 capsule by 0 01/19/ 01 Active oil 340-1,000 mg per mouth daily. [address] tablet Take 81 mg by mouth 0 Active daily. 8 multivitamin tablet Take 1 tablet by 0 Active mouth daily. 7 insulin lispro 100 20 units 0 A ctive unit/mL injection subcutaneously 8 daily patient states hydroCHLOROthiazide Take 25 mg by mouth 0 Active (HYDRODIURIL) 25 mg daily. 1 tablet BD Mayra 2nd Gen Pen USE WITH HUMALOG 0 Active Needle 32 gauge x 5/32 AND LANTUS FOUR 2 needle TIMES DAILY Active Problems Patient Care Coordination Note Formatting of this note might be differe nt from the original. 07/31/2021- Authorization to disclose pr otected health information to family and friends released to Spouse Silverio Olivas. No additional problems on file Encounters Date Type Specialty Care Team Description 02/12/2022 Hospital Encounter Radiology Vaughn Bailon Demar rocognitive [place] Ivey, Disorder Withou t Rocio, Ph.D. Behavior Distur bance (HCC) 01/22/2022 Comprehensive Visit Neurology Vaughn Bailon Ne urocognitive Disorder Without Behavior Disturbance (HCC); [place] Ivey, Snoring; Rocio, Ph.D. Loss Hearing Bi lateral 01/21/2022 Clinical Admitting/Central Pre-visit Intake Communication Scheduling from Last 3 Months Immunizations Name Administration Dates Next Due SARS-COV-2 (COVID-19) - Sensser (12 years or older) 1 Social History Tobacco Use Types Packs/Day Years Used Date Smoking Tobacco: Former Cigarettes Quit : 1980 Smokeless Tobacco: Never Sex Assigned at Date Recorded Not on file Last Filed Vital Signs Vital Sign Reading Time Taken Comments Blood Pressure 135/59 11/07/2021 12:51 PM CIVIL ENGINEERING ASSISTANT Pulse 74 11/07/2021 12:51 PM CIVIL ENGINEERING ASSISTANT Temperature - - Respiratory Rate - - Oxygen Saturation - - Inhaled Oxygen Concentration - - Weight 83.4 kg (183 lb 13.8 oz) 11/07/2021 12:51 PM CIVIL ENGINEERING ASSISTANT Height 167.6 cm (5' 5.98) 07/31/2021 12:55 PM CIVIL ENGINEERING ASSISTANT Body Mass Index 29.69 07/31/2021 12:55 PM CIVIL ENGINEERING ASSISTANT Plan of Treatment Health Maintenance Due Date Last Done Comments Hepatitis C Screening 1945 Zoster Vaccines (1 of 2) 1995 COVID-19 Vaccine (4 - Booster for 12/11/2021 08/13/2021, , Pfizer series) 11/13/2020 Influenza Vaccine (#1) 2022 09/03/2021, 09/08/2019, 07/28/2018, Additional history exists Creatinine Level 11/07/2022 11/07/2021 Potassium Level 11/07/2022 11/07/2021 Sodium Level 11/07/2022 11/07/2021 DTaP,Tdap,and Td Vaccines (2 - Td 06/09/2026 06/09/2016, , or Tdap) 04/22/2013, Additional history exists Pneumococcal vaccine (65+ years) Completed 12/11/2014, , 08/11/2007 Fall Risk Screen (Annual) Completed 10/16/2021 Medical Devices Implanted Type Area Arch Pad Cementer Device Shelf Model / Identifier Expiration Serial / Date Lot Hip Implant-09/23/2009 Hip Implant Left: Implanted: 09/23/2009 (Quantity not on file) Hip Procedures Procedure Name Priority Date/Time Associated Diagnosis Comme nts ECG Routine 01/22/2022 3:03 PM Major Neurocognitive R esults for this CDT Disorder Without procedure a re in Behavior Disturbance the res ults (HCC) section. from Last 3 Months Results ECG 12 Lead (01/22/2022 3:03 PM CDT) P athologist Signature Ventricular Rate 74 BPM MUSE ECG/Min WI Interval 230 ms MUSE QRSD Interval 90 ms MUSE QT Interval 372 ms MUSE QTC Interval 412 ms MUSE P Celina 75 degrees MUSE R Celina -12 degrees MUSE T Wave Celina 63 degrees MUSE Specimen Anatomical Collection Method Collection Time Receive d Time (Source) Location / / Volume Laterality 01/22/2022 3:03 PM 3:08 CDT PM CDT Impressions MUSE - 01/22/2022 3:08 PM CDT Sinus rhythm with 1st degree A-V block Low voltage QRS Anterior infarct No previous ECGs available Reviewed by SHAMIKA Garcia Narrative This result has an attachment that is no t available. Procedure Note Satya Rowan M.D. - 01/22/2022Forma tting of this note might be different from the original. IMPRESSION: Sinus rhythm with 1st degree A-V block Low voltage QRS Anterior infarct No previous ECGs available Reviewed by SHAMIKA Garcia [place] Bailon M.D., Ph.D. ECG ORDERABLES Performing Organization Address City/State/ZIP Code Phon e Number MUSE MUSE NA from Last 3 Months Insurance Payer Benefit Plan Subscriber ID Effective Phone Address Typ e / Group Dates MEDICARE MEDICARE A [id number] 2010-Pres [address] [place] [address] [employer] BC[employer] [place] [id number] 2016-Pres [phone] PO ERNESTO X Cost Share BLUE SHIELD BLUE COST ent [phone] [place] [address] Care Teams Veterinary Medical Officer Relationship Specialty Start Date End Date Elsewhere, Pcp PCP - General Internal Medicine 01/21/22
--- OUTSIDE RECORDS SUMMARY | 2022-04-29 15:02 | XMS_ITS | Encounter Summary ---
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 [address] [place] [phone] Referral ID Status Reason Start Date Expiration Date Visits V isits Requested Authorized [id number] Authorized 01/22/2022 01/22/2023 6 6 Encounter Details Date Type Department Care Team Description 02/12/2022 Hospital Encounter Department of [place] Bailon Neurocognitive Radiology nila Ivey M.D., Ph.D. Disorder Without [place], [address] [facility] Behavior Disturbance [place], [place] (HCC) 200 [facility] [phone] [place], [place] [phone] (Work) [phone] Social History Tobacco Use Types Packs/Day Years [...] B complex-vitamins daily. 0 (BALANCE B-50) tablet BD Mayra 2nd Gen Pen Needle USE WITH HUMALOG AND 0 12/27/2021 32 gauge x 5/32 needle LANTUS FOUR TIMES DAILY gabapentin (NEURONTIN) 300 Take 600 mg by mouth 0 03/23/2018 mg capsule 2 (two) times a day. Take 600 mg twice A day. hydroCHLOROthiazide Take 25 mg by mouth 0 021 (HYDRODIURIL) 25 mg tablet daily. insulin glargine (Lantus Inject 24 Units under 0 03/23/2018 Solostar U-100 Insulin) the skin at bedtime. 100 unit/mL (3 mL) injection insulin lispro 100 unit/mL 20 units [...] oil 340-1,000 mg per mouth daily. capsule documented as of this encounter Plan of Treatment Scheduled Orders Name Type Priority Associated Diagnoses Order S chedule PET CT Brain Imaging RAD - Routine Major Neurocognitive Once f or 1 Metabolic (most inpatients Disorder Without Occurre nces Evaluation and all Behavior Disturbance startin g 02/12/2022 outpatients) ([facility]) until 2 documented as of this encounter Visit Diagnoses Diagnosis Major Neurocognitive Disorder Without Be havior Disturbance (HCC) documented in this encounter Care Teams Metal Smelter Relationship Specialty Start Date End Date Elsewhere, Pcp PCP - General Internal Medicine 01/21/22 documented as of this encounter
--- OUTSIDE RECORDS SUMMARY | 2022-04-29 15:02 | XMS_ITS | Encounter Summary ---
:1945 Author Organization [facility] Address [address] [place] [address] Care Team Providers Name Role Phone Unavailable Primary Care Provider Unavailable Reason for Referral Specialty Diagnoses / Procedures Referred By Contact Refer red To Contact India Sue M.D. [facility] Region [address] [place] [address] Referral ID Status Reason Start Date Expiration Date Visits Requ ested Visits Authorized [address] Encounter Details Date Type Department Care Team Description 08/01/2021 Orders Only [facility] P[facility]NT Sa enrique Sue M.D. [address] [place] [address] [phone] (Wo rk) Social History Tobacco Use Types Packs/Day Years Used Date Smoking Tobacco: Former Cigarettes Quit : 1980 Smokeless Tobacco: Never Sex Assigned at Date Recorded Not on file documented as of this encounter Plan of Treatment Scheduled Referrals Name Type Priority Associated Order Schedule Diagnoses Covid immunization Outpatient Referral Routine Ex pected: office visit Booster 021 (Approximate), Expires: 08/01/2022 documented as of this encounter Visit Diagnoses Not on filedocumented in this encounter
--- OUTSIDE RECORDS SUMMARY | 2022-04-29 15:02 | XMS_ITS | Encounter Summary ---
:1945 Author Organization [facility] Address [address] [place] [address] Care Team Providers Name Role Phone Unavailable Primary Care Provider Unavailable Encounter Details Date Type Department Care Team Description 08/13/2021 [facility]ization [facility] [address] [place] [phone] [place] [address] [place] [address] [facility] [phone] Social History Tobacco Use Types Packs/Day Years Used Date Smoking Tobacco: Former Cigarettes Quit : 1980 Smokeless Tobacco: Never Sex Assigned at Date Recorded Not on file documented as of this encounter Plan of Treatment Not on filedocumented as of this encounter Visit Diagnoses Not on filedocumented in this encounter
== END 2022-04-07 12:57 | disposition home or self-care (01) ==
PROVIDERS: PCP Internal Medicine; Visit Provider Internal Medicine
DX: I10 Essential (primary) hypertension (principal)
CPT/HCPCS: 93306

== ENCOUNTER 2022-07-03 10:23 | Outpatient (CLI) | payer MEDICARE, BC, SELFPAY ==
--- OUTSIDE RECORDS SUMMARY | 2022-07-03 10:26 | XMS_ITS | Encounter Summary ---
:1945 Author Organization [facility] Address [address] [place] [address] Care Team Providers Name Role Phone Elsewhere, Pcp Primary Care Provider Unavailable Reason for Visit Reason Comments Pre-visit Intake Encounter Details Date Type Department Care Team Description 01/21/2022 Clinical Communication Visit Review in Pr e-visit Intake [address] [id number] Social History Tobacco Use Types Packs/Day Years Used Date Smoking Tobacco: Former Cigarettes Quit : 1980 Smokeless Tobacco: Never Sex Assigned at Date Recorded Not on file documented as of this encounter Plan of Treatment Not on filedocumented as of this encounter Visit Diagnoses Not on filedocumented in this encounter Care Teams Ornament Setter Relationship Specialty Start Date End Date Elsewhere, Pcp PCP - General Internal Medicine 01/21/22 documented as of this encounter
--- OUTSIDE RECORDS SUMMARY | 2022-07-03 10:26 | XMS_ITS | Encounter Summary ---
:1945 Author Organization [facility] Address [address] [place] [address] Care Team Providers Name Role Phone Unavailable Primary Care Provider Unavailable Reason for Referral Outpatient (Routine) - Closed Specialty Diagnoses / Procedures Referred By Contact Refer red To Contact Neurology Juany Valladares M.D ., M.P.H. [facility] Region [address] [place] [phone] Referral ID Status Reason Start Date Expiration Date Visits Requ ested Visits Authorized [id number] Closed 07/31/2021 07/31/2022 1 1 DIALYSIS Behavioral Health (Routine) - Closed Specialty Diagnoses / Procedures Referred By Contact Refer red To Contact Psychology / Diagnoses Loss Memory Personality [facility] PSY Neuropsychology testing Rcoio, M.P.H. Psychology [address] [phone] Referral ID Status Reason Start Date Expiration Date Visits Requ ested Visits Authorized [id number] Closed 07/31/2021 07/31/2022 1 1 DIALYSIS MRI/CAT/PET Scan (Routine) - Closed Specialty Diagnoses / Procedures Referred By Contact Refer red To Contact Radiology Diagnoses Loss Memory Juany Valladares M.D., [facility] Region Procedures MR Brain without IV Contrast [place] MRI BRAIN WO [facility]TRST HC MRI BRAIN WO [facility]ST M.P.H. [address] [place] [phone] Referral ID Status Reason Start Date Expiration Date Visits Requ ested Visits Authorized [id number] Closed 07/31/2021 07/31/2022 1 1 DIALYSIS Reason for Visit Reason Comments Memory Loss Ref. Dr. Curry [facility] Appointment Request (Routine) - Closed Specialty Diagnoses / Procedures Referred By Contact Refer red To Contact Neurology Referral ID Status Reason Start Date Expiration Date Visits Requ ested Visits Authorized [id number] Closed 06/06/2021 06/06/2022 1 1 Encounter Details Date Type Department Care Team Description 07/31/2021 Comprehensive Visit Department of Juany Valladares (Primary Dx); Neurology in Rocio Gould, [facility] Ayesha Roann, [place] M.P.H. [address] [place] [phone] [place], [place] [phone] Social History Tobacco Use Types Packs/Day Years Used Date Smoking Tobacco: Former Cigarettes Quit : 1980 Smokeless Tobacco: Never Sex Assigned at Date Recorded Not on file documented as of this encounter Last Filed Vital Signs Vital Sign Reading Time Taken Comments Blood Pressure 135/61 07/31/2021 1:06 PM RN DIALYSIS Pulse 69 07/31/2021 1:06 PM RN DIALYSIS Temperature - - Respiratory Rate - - Oxygen Saturation - - Inhaled Oxygen Concentration - - Weight 82.9 kg (182 lb 12.2 oz) 07/31/2021 12:55 PM RN DIALYSIS Height 167.6 cm (5' 5.98) 07/31/2021 12:55 PM RN DIALYSIS Body Mass Index 29.51 07/31/2021 12:55 PM RN DIALYSIS documented in this encounter Patient Instructions Patient InstructionsMoJuany anderson M.D., M.P.H. - 07/31/2021 1:00 PM RN DIALYSIS Images from the original note were not [...] have FTD and to their families: ?? child and family services specialist ? Public health services ? [...] Disease Education and Referral Center Family Caregiver [employer] National [place] of Neurological Disorder and Stroke For more [...] with your health care provider. ? 2007 [facility] for Medical Education and Research ([facility]). All rights reserved. [id number] DIALYSIS documented in this encounter Consult Notes Juany Valladares M.D., M.P.H. - 07/31/2021 1:00 PM CST SUBJECTIVE CHIEF COMPLAINT / REASON FOR VISIT Alex Olivas is a 76 y.o. male who presents for evaluation of Memory Loss (Ref. Dr. Curry [facility]). HISTORY OF PRESENT ILLNESS This patient presents for evaluation of ???memory concerns on from [facility]. The historyis primarily obtained from the as the patient, given the opportunity rarely speaks. The couple is from [place] and the 's [place] language is [place] and [place] [facility] [place] the both the quite fluent in [place]. 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 He does not have any tremor, he [...] ???no ifs and or buts?? CRANIAL NERVES: gear shaper II-XII intact and symmetric. MOTOR: Full strength [...] face patient care. Juany Valladares M.D., M.P.H. DIALYSIS documented in this encounter Plan of Treatment Scheduled Referrals Name Type Priority Associated Diagnoses Order [facility] Neurology office Outpatient Referral Routine Expe cted: visit (clinic) 10/23/2021 (Approximate), Expires: 07/31/2024 documented as of this encounter Results MR Brain without IV Contrast (08/08/2021 2:17 PM RN DIALYSIS) Anatomical Region Laterality Modality Head, Brain, Neuroradiology RST LOS, Neuroradiology ARZ N/A Magnetic Resonance LOS, Neuroradiology FLA LOS Specimen (Source) Anatomical Collection Method Collection Time Re ceived Time Location / / Volume Laterality 08/08/2021 3:41 PM RN DIALYSIS Impressions 08/08/2021 3:47 PM RN DIALYSIS Moderate small vessel ischemic change and moderate-advanced cerebral and cerebellar parenchymal volume loss. Narrative 08/08/2021 3:47 PM RN DIALYSIS EXAM: MR BRAIN WITHOUT IV CONTRAST COMPARISON: [...]
--- OUTSIDE RECORDS SUMMARY | 2022-07-03 10:26 | XMS_ITS | Encounter Summary ---
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 Procedures PET CT Brain Metabolic Evaluation Ph.D. [address] [place] [phone] Referral ID Status Reason Start Date Expiration Date Visits V isits Requested Authorized [id number] Canceled 01/22/2022 01/22/2023 6 6 Reason for Visit Outpatient (Routine) - Canceled Specialty Diagnoses / Procedures Referred By Contact Refer red To Contact Diagnoses Unspecified Dementia Unspecified Severity Without Behavioral Disturbance Psychotic disturbance Mood Disturbance And Anxiety (HCC) [place] Bailon M.D., [facility] Procedures PET CT Brain Metabolic Evaluation Ph.D. [address] [place] [phone] Referral ID Status Reason Start Date Expiration Date Visits V isits Requested Authorized [id number] Canceled 01/22/2022 01/22/2023 6 6 Encounter Details Date Type Department Care Team Description 02/12/2022 Hospital Encounter Department of Berlin Bailon Neurocognitive Radiology, Mynor Ivey M.D., Ph. D. Disorder Without Building, in 200 [facility] Behavior Disturbance [place], [place] (HCC) [place] [address] [place], [place] (Work) [phone] Social History Tobacco Use Types Packs/Day Years [...] HUMALOG AND 0 12/27/2021 32 gauge x 32 needle LANTUS FOUR TIMES DAILY gabapentin (NEURONTIN) [...] all Behavior Disturbance startin g 02/12/2022 outpatients) (HCC) until 2 documented as of this encounter Visit Diagnoses Diagnosis Unspecified Dementia Unspecified Severit y Without Behavioral Disturbance Psychotic disturbance Mood Disturbance And Anxiety (HCC) documented in this encounter Care Teams Dog Bather Relationship Specialty Start Date End Date Elsewhere, Pcp PCP - General Internal Medicine 01/21/22 documented as of this encounter
--- OUTSIDE RECORDS SUMMARY | 2022-07-03 10:26 | XMS_ITS | Encounter Summary ---
:1945 Author Organization [facility] Address [address] [place] [address] Care Team Providers Name Role Phone Unavailable Primary Care Provider Unavailable Encounter Details Date Type Department Care Team Description 11/07/2021 Hospital Encounter Department of Juany Valladares Mem; Laboratory Medicine Rocio Gould, Personal ity Change in [place] [facility] [place] [address] [place] [id number] Social History Tobacco Use Types Packs/Day [...] Procedure Name Priority Date/Time Associated Comments Diagnosis GA T4 FREE Routine 11/07/2021 1:45 PM Results f or this LOSS MITIGATION SPECIALIST procedure are i n the results section. THYROID FUNCTION Routine 11/07/2021 1:45 PM Loss Memory Results for this CASCADE, S LOSS MITIGATION SPECIALIST Personality Change procedure are in the results section. CBC WITH Routine 11/07/2021 1:45 PM Loss Memory Results for this DIFFERENTIAL, B LOSS MITIGATION SPECIALIST Personality Change proced ure are in the results section. SODIUM, S/P Routine 11/07/2021 1:45 PM Loss Memory Results for this LOSS MITIGATION SPECIALIST Personality Change procedure are in the results section. POTASSIUM, S/P Routine 11/07/2021 1:45 PM Loss Memory Results for this LOSS MITIGATION SPECIALIST Personality Change procedure are in the results section. FOLATE, S Routine 11/07/2021 1:45 PM Loss Memory Results for this LOSS MITIGATION SPECIALIST Personality Change procedure are in the results section. VITAMIN B12 ASSAY, S Routine 11/07/2021 1:45 PM Loss Mem ory Results for this LOSS MITIGATION SPECIALIST Personality Change procedure are in the results section. CREATININE WITH Routine 11/07/2021 1:45 PM Loss Memory Results for this EGFR, S/P LOSS MITIGATION SPECIALIST Personality Change procedure are in the results section. documented in this encounter Results T4 (Thyroxine), Free, Serum (11/07/2021 1:45 PM LOSS MITIGATION SPECIALIST) athologist Signature T4 (Thyroxine), 1.2 0.9 - 1.7 11/07/2021 OWAT Free, S ng/dL 5:22 PM LOSS MITIGATION SPECIALIST Comment: Biotin has been identified by the jarrod avila as a potential interfering substance. ??Higher concentr ations of biotin may be found in multivitamins, hair/nail supple ments, and workout supplements. ??If the result does not [facility] clinical observations, repeat testing after patient refrains fr om the use of supplements for at least 12 hours. Specimen Anatomical Collection Method Collection Time Receive d Time (Source) Location / / Volume Laterality Blood 11/07/2021 1:45 PM 3:32 LOSS MITIGATION SPECIALIST PM LOSS MITIGATION SPECIALIST Juany Valladares M.D., M.P.[facility]. LAB BLOOD ADD-ON Performing Organization Address City/State/ZIP Code Phon e Number [facility]- [address] [place] [address] [facility] [place] [address] System in [place] [address] Creatinine with Estimated GFR (11/07/2021 1:45 PM LOSS MITIGATION SPECIALIST) athologist Signature Creatinine 0.89 0.74 - 11/07/2021 [place] 1.35 mg/dL 4:04 PM LOSS MITIGATION SPECIALIST eGFR-Black/Afric >90 >=60 11/07/2021 [place] an Omani mL/min/BSA 4:04 PM LOSS MITIGATION SPECIALIST Comment: ----ADDITIONAL INFORMATION---- Estimated GFR calculated using the 2009 CKD_EPI creatinine equation. eGFR Non-Black/ 83 >=60 mL/min/BSA 4:04 PM LOSS MITIGATION SPECIALIST OWAT Comment: ----ADDITIONAL INFORMATION---- Estimated GFR calculated using the 2009 CKD_EPI creatinine equation. Specimen Anatomical Collection Method Collection Time Receive d Time (Source) Location / / Volume Laterality Blood (Blood, 11/07/2021 1:45 PM 11/07/19 3:32 Venous) LOSS MITIGATION SPECIALIST PM LOSS MITIGATION SPECIALIST Juany Valladares M.D., M.P.H. LAB BLOOD ADD-ON Performing Organization Address City/State/ZIP Code Phon e Number [facility]- [address] [place] [address] [place] [address] System in [place] [address] Folate (11/07/2021 1:45 PM LOSS MITIGATION SPECIALIST) P athologist Signature Folate, S >20.0 >=4.0 mcg/L 11/07/2021 AUST 10:26 PM LOSS MITIGATION SPECIALIST Comment: Biotin has been identified by the [...] (Blood, 11/07/2021 1:45 PM 11/07/19 9:42 Venous) LOSS MITIGATION SPECIALIST PM LOSS MITIGATION SPECIALIST Juany Valladares M.D., M.P.H. LAB BLOOD ADD-ON Performing Organization Address City/State/ZIP Code Phon e Number [facility]- [address] [place] [address] [facility] [place] [address] [facility] [address] Vitamin B12 Assay (11/07/2021 1:45 PM LOSS MITIGATION SPECIALIST) athologist Signature Vitamin B12 664 232 - 1245 11/07/2021 AUST Assay, S ng/L 10:21 PM LOSS MITIGATION SPECIALIST Comment: Biotin has been identified by the [...] (Blood, 11/07/2021 1:45 PM 11/07/19 9:42 Venous) LOSS MITIGATION SPECIALIST PM LOSS MITIGATION SPECIALIST Juany Valladares M.D., M.P.H. LAB BLOOD ADD-ON Performing Organization Address City/State/ZIP Code Phon e Number [facility]- [address] [place] [address] [facility] [place] [address] [facility] [address] (ABNORMAL) Thyroid Function Bibb (11/07/2021 1:45 PM LOSS MITIGATION SPECIALIST) athologist Signature TSH, Sensitive 0.2 (L) 0.3 - 4.2 11/07/2021 OW[place] mIU/L 4:48 PM LOSS MITIGATION SPECIALIST Specimen Anatomical Collection Method Collection Time Receive d Time (Source) Location / / Volume Laterality Blood (Blood, 11/07/2021 1:45 PM 11/07/19 3:32 Venous) LOSS MITIGATION SPECIALIST PM LOSS MITIGATION SPECIALIST Juany Valladares M.D., M.P.H. LAB BLOOD ADD-ON Performing Organization Address City/State/ZIP Code Phon e Number [facility]- [address] [place] [address] [place] [address] System in [place] [address] Potassium (11/07/2021 1:45 PM LOSS MITIGATION SPECIALIST) athologist Signature Potassium, P 4.4 3.6 - 5.2 11/07/2021 OW[place] mmol/L 4:04 PM LOSS MITIGATION SPECIALIST Specimen Anatomical Collection Method Collection Time Receive d Time (Source) Location / / Volume Laterality Blood (Blood, 11/07/2021 1:45 PM 11/07/19 3:32 Venous) LOSS MITIGATION SPECIALIST PM LOSS MITIGATION SPECIALIST Juany Valladares M.D., M.P.H. LAB BLOOD ADD-ON Performing Organization Address City/State/ZIP Code Phon e Number [facility]- [address] [place] [address] [place] [address] System in [place] [address] Sodium (11/07/2021 1:45 PM LOSS MITIGATION SPECIALIST) athologist Signature Sodium, P 141 135 - 145 11/07/2021 4:04 OW[place] mmol/L PM LOSS MITIGATION SPECIALIST Specimen Anatomical Collection Method Collection Time Receive d Time (Source) Location / / Volume Laterality Blood (Blood, 11/07/2021 1:45 PM 11/07/19 3:32 Venous) LOSS MITIGATION SPECIALIST PM LOSS MITIGATION SPECIALIST Juany Valladares M.D., M.P.H. LAB BLOOD ADD-ON Performing Organization Address City/State/ZIP Code Phon e Number [facility]- [address] [place] [address] [place] [address] System in [place] [address] [facility] CBC with Differential, Blood (11/07/2021 1:45 PM LOSS MITIGATION SPECIALIST) athologist Signature Hemoglobin 14.8 13.2 - 11/07/2021 FB60 16.6 g/dL 2:40 PM LOSS MITIGATION SPECIALIST Hematocrit 42.1 38.3 - 11/07/2021 FB60 48.6 % 2:40 PM LOSS MITIGATION SPECIALIST Erythrocytes 4.55 4.35 - 11/07/2021 FB60 5.65 2:40 PM LOSS MITIGATION SPECIALIST x10(12)/L MCV 92.5 78.2 - 11/07/2021 FB60 97.9 fL 2:40 PM LOSS MITIGATION SPECIALIST RBC Distrib Width 12.5 11.8 - 11/07/2021 FB60 14.5 % 2:40 PM LOSS MITIGATION SPECIALIST Platelet Count 139 135 - 317 11/07/2021 FB60 x10(9)/L 2:40 PM LOSS MITIGATION SPECIALIST Leukocytes 7.7 3.4 - 9.6 11/07/2021 FB60 x10(9)/L 2:40 PM LOSS MITIGATION SPECIALIST Neutrophils 5.33 1.56 - 11/07/2021 FB60 6.45 2:40 PM LOSS MITIGATION SPECIALIST x10(9)/L Lymphocytes 1.67 0.95 - 11/07/2021 FB60 3.07 2:40 PM LOSS MITIGATION SPECIALIST x10(9)/L Monocytes 0.54 0.26 - 11/07/2021 FB60 0.81 2:40 PM LOSS MITIGATION SPECIALIST x10(9)/L Eosinophils 0.12 0.03 - 11/07/2021 FB60 0.48 2:40 PM LOSS MITIGATION SPECIALIST x10(9)/L Basophils 0.01 0.01 - 11/07/2021 FB60 0.08 2:40 PM LOSS MITIGATION SPECIALIST x10(9)/L Specimen Anatomical Collection Method Collection Time Receive d Time (Source) Location / / Volume Laterality Blood (Blood, 11/07/2021 1:45 PM 11/07/19 1:45 Venous) LOSS MITIGATION SPECIALIST PM LOSS MITIGATION SPECIALIST Juany Valladares M.D., M.P.H. LAB BLOOD ADD-ON Performing Organization Address City/State/ZIP Code Phon e Number [place] [address] [facility] [address] [place] [address] [address] documented in this encounter Visit Diagnoses Diagnosis Loss Memory Personality Change documented in this encounter
--- OUTSIDE RECORDS SUMMARY | 2022-07-03 10:26 | XMS_ITS | Encounter Summary ---
:1945 Author Organization [facility] Address [address] [place] [address] Care Team Providers Name Role Phone Elsewhere, Pcp Primary Care Provider Unavailable Reason for Referral Outpatient (Routine) - Closed Specialty Diagnoses / Procedures Referred By Contact Refer red To Contact Diagnoses Unspecified Dementia Unspecified Severity Without Behavioral Disturbance Psychotic disturbance Mood Disturbance And Anxiety (HCC) [place] Bailon M.D., [facility] Procedures ECG 12 Lead Ph.D. [address] [place] [address] Referral ID Status Reason Start Date Expiration Date Visits Requ ested Visits Authorized [id number] Closed 01/22/2022 01/22/2023 1 1 Reason for Visit Outpatient (Routine) - Closed Specialty Diagnoses / Procedures Referred By Contact Refer red To Contact Neurology Diagnoses Loss Memory Personality Change Juany Valladares M.D., [facility] M.P.H. 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 Loss Hearing Bilateral [place] [address] [facility] [address] [place] [phone] Social History Tobacco Use Types Packs/Day Years Used Date Smoking Tobacco: Former Cigarettes Quit : 1980 Smokeless Tobacco: Never Sex Assigned at Date Recorded Not on file documented as of this encounter Consult Notes [place] Bialon M.D., Ph.D. - 01/22/2022 2:00 PM CDT Alex Olivas is a 76 y.o. man from [place] referred by Dr. Valladares for cognitive concerns, [...] MRI, and this visit were ordered. Exam [facility] STMS 23/38 (-1 orientation, -2 digit, -3 trials, -1 [...] documented in this encounter Plan of Treatment Not on filedocumented as of this encounter Results ECG 12 Lead (01/22/2022 3:03 PM CDT) P athologist Signature Ventricular Rate 74 BPM MUSE ECG/Min SC Interval 230 ms MUSE QRSD Interval 90 ms MUSE QT Interval 372 ms MUSE QTC Interval 412 ms MUSE P Henderson 75 degrees MUSE R Henderson -12 degrees MUSE T Wave Henderson 63 degrees MUSE Specimen Anatomical Collection Method [...] documented in this encounter Visit Diagnoses Diagnosis Unspecified Dementia Unspecified Severit y Without Behavioral Disturbance Psychotic disturbance Mood Disturbance And Anxiety (HCC) Snoring Loss Hearing Bilateral documented in this encounter Care Teams Tool Programmer Relationship Specialty Start Date End Date Elsewhere, Pcp PCP - General Internal Medicine 01/21/22 documented as of this encounter
--- OUTSIDE RECORDS SUMMARY | 2022-07-03 10:26 | XMS_ITS | Clinical Summary ---
:1945 Author Organization [facility] Address [address] [place] [address] Care Team Providers Name Role Phone Elsewhere, Pcp Primary Care Provider Unavailable Source Comments Patient records contain information from all sites at [facility]. For routine questions regarding patient records, call [phone] during business hours, M-F 8:00 AM - 5:00 PM Central Time. Record requests for emergency care only can be directed to [phone] at any time.[facility] Allergies No known active allergies Medications [...] Silverio Olivas. No additional problems on file Immunizations Name Administration Dates Next Due SARS-COV-2 (COVID-19) - PFIZER (12 years or older) 1 Social History Tobacco Use Types Packs/Day Years Used Date Smoking Tobacco: Former Cigarettes Quit : 1980 Smokeless Tobacco: Never Sex Assigned at Date Recorded Not on file Last Filed Vital Signs Vital Sign Reading Time Taken Comments Blood Pressure 135/59 11/07/2021 12:51 PM SMOKE TESTER Pulse 74 11/07/2021 12:51 PM SMOKE TESTER Temperature - - Respiratory Rate - - Oxygen Saturation - - Inhaled Oxygen Concentration - - Weight 83.4 kg (183 lb 13.8 oz) 11/07/2021 12:51 PM SMOKE TESTER Height 167.6 cm (5' 5.98) 07/31/2021 12:55 PM SMOKE TESTER Body Mass Index 29.69 07/31/2021 12:55 PM SMOKE TESTER Plan of Treatment Health Maintenance Due Date Last Done Comments Hepatitis C Screening 1945 Zoster Vaccines (1 of 2) 1995 COVID-19 Vaccine (4 - Booster for 10/08/2021 08/13/2021, , Pfizer series) 11/13/2020 Influenza Vaccine (#1) 2022 09/03/2021, 09/08/2019, 07/28/2018, Additional history exists Creatinine Level 11/07/2022 11/07/2021 Potassium Level 11/07/2022 11/07/2021 Sodium Level 11/07/2022 11/07/2021 DTaP,Tdap,and Td Vaccines (2 - Td 06/09/2026 06/09/2016, , or Tdap) 04/22/2013, Additional history exists Pneumococcal vaccine (65+ years) Completed 12/11/2014, , 08/11/2007 Fall Risk Screen (Annual) Completed 10/16/2021 Medical Devices Implanted Type Area Blueprint Clerk Device Shelf Model / Identifier Expiration Serial / Date Lot Hip Implant-09/23/2009 Hip Implant Left: Implanted: 09/23/2009 (Quantity not on file) Hip Insurance Payer Benefit Plan Subscriber ID Effective Phone Address Typ e / Group Dates MEDICARE MEDICARE A [id number] 2010-Pres [address] [place] [address] BLUE CROSS BCBS [place] [id number] 2016-Pres [phone] [address] X Cost Share BLUE SHIELD BLUE COST ent [phone] [place] [address] Care Teams Press Set Up Relationship Specialty Start Date End Date Elsewhere, Pcp PCP - General Internal Medicine 01/21/22
--- OUTSIDE RECORDS SUMMARY | 2022-07-03 10:26 | XMS_ITS | Encounter Summary ---
:1945 Author Organization [facility] Address [address] [place] [address] Care Team Providers Name Role Phone Unavailable Primary Care Provider Unavailable Encounter Details Date Type Department Care Team Description 07/30/2021 Orders Only Department of Sleep Medicine Juany Valladares M.D., in [facility] M.P.H [address] [place] [address] [place], [place] [phone] (Wo rk) Social History Tobacco Use Types Packs/Day Years Used Date Smoking Tobacco: Never Assessed Sex Assigned at Date Recorded Not on file documented as of this encounter Plan of Treatment Not on filedocumented as of this encounter Visit Diagnoses Not on filedocumented in this encounter
--- OUTSIDE RECORDS SUMMARY | 2022-07-03 10:26 | XMS_ITS | Encounter Summary ---
:1945 Author Organization [facility] Address [address] [place] [address] Care Team Providers Name Role Phone Unavailable Primary Care Provider Unavailable Reason for Referral MRI/CAT/PET Scan (Routine) - Closed Specialty Diagnoses / Procedures Referred By Contact Refer red To Contact Radiology Diagnoses Loss Memory Ju[facility] Valladares M.D., [facility] [place] [facility] Procedures MR Brain without IV Contrast WI MRI BRAIN WO CNTRST HC MRI BRAIN WO CNTRST M.P.[facility] 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 [address] [place] [address] Referral ID Status Reason Start Date Expiration Date Visits Requ ested Visits Authorized [id number] Closed 07/31/2021 07/31/2022 1 1 Encounter Details Date Type Department Care Team Description 08/08/2021 Hospital Encounter Department of Radiology Juany Valladares, Loss Memory in [facility] mona Chan, M.P.H. [address] [place] [address] [place] [phone] Social History Tobacco Use Types Packs/Day [...] for this IV CONTRAST (most inpatients PM RAW MATERIAL PLANNER procedure a re in and all the results outpatients) section. documented in this encounter Results MR Brain without IV Contrast (08/08/2021 2:17 PM RAW MATERIAL PLANNER) Anatomical Region Laterality Modality Head, Brain, Neuroradiology RST LOS, Neuroradiology ARZ N/A Magnetic Resonance LOS, Neuroradiology FLA LOS Specimen (Source) Anatomical Collection Method Collection Time Re ceived Time Location / / Volume Laterality 08/08/2021 3:41 PM RAW MATERIAL PLANNER Impressions 08/08/2021 3:47 PM RAW MATERIAL PLANNER Moderate small vessel ischemic change and moderate-advanced cerebral and cerebellar parenchymal volume loss. Narrative 08/08/2021 3:47 PM RAW MATERIAL PLANNER EXAM: MR BRAIN WITHOUT IV CONTRAST COMPARISON: [...]
--- OUTSIDE RECORDS SUMMARY | 2022-07-03 10:26 | XMS_ITS | Encounter Summary ---
:1945 Author Organization [facility] Address [address] [place] [address] Care Team Providers Name Role Phone Unavailable Primary Care Provider Unavailable Encounter Details Date Type Department Care Team Description 08/13/2021 Immunization [facility] [address] [place] [phone] [place] [address] [place] [address] [facility] [phone] Social History Tobacco Use Types Packs/Day Years Used Date Smoking Tobacco: Former Cigarettes Quit : 1980 Smokeless Tobacco: Never Sex Assigned at Date Recorded Not on file documented as of this encounter Plan of Treatment Not on filedocumented as of this encounter Visit Diagnoses Not on filedocumented in this encounter
--- OUTSIDE RECORDS SUMMARY | 2022-07-03 10:26 | XMS_ITS | Encounter Summary ---
:1945 Author Organization [facility] Address [address] [place] [address] Care Team Providers Name Role Phone Unavailable Primary Care Provider Unavailable Reason for Referral Outpatient (Routine) - Closed Specialty Diagnoses / Procedures Referred By Contact Refer red To Contact Neurology Diagnoses Loss Memory Personality Change Juany Valladares M.D., [facility] M[facility]P.[facility] [address] [place] [address] Referral ID Status Reason Start Date Expiration Date Visits Requ ested Visits Authorized [id number] Closed 11/07/2021 11/07/2022 1 1 NE PAINTER Reason for Visit Reason Comments Memory Loss Follow up from Was seen for testing in [place] 10/16/21. Outpatient (Routine) - Closed Specialty Diagnoses / Procedures Referred By Contact Refer red To Contact Neurology Juany Valladares M.D ., M.P.H. [facility] [address] [place] [address] Referral ID Status Reason Start Date Expiration Date Visits Requ ested Visits Authorized [id number] Closed 07/31/2021 07/31/2022 1 1 Encounter Details Date Type Department Care Team Description 11/07/2021 Office Visit Department of Juany Valladares Loss Memor y (Primary Dx); Neurology in [place], M.P.H. Personality Change [place], [place] [address] [phone] Social History Tobacco Use Types Packs/Day Years Used Date Smoking Tobacco: Former Cigarettes Quit : 1980 Smokeless Tobacco: Never Sex Assigned at Date Recorded Not on file documented as of this encounter Last Filed Vital Signs Vital Sign Reading Time Taken Comments Blood Pressure 135/59 11/07/2021 12:51 PM MARINE PAINTER Pulse 74 11/07/2021 12:51 PM MARINE PAINTER Temperature - - Respiratory Rate - - Oxygen Saturation - - Inhaled Oxygen Concentration - - Weight 83.4 kg (183 lb 13.8 oz) 11/07/2021 12:51 PM MARINE PAINTER Height - - Body Mass Index 29.69 07/31/2021 12:55 PM MARINE PAINTER documented in this encounter Progress Notes Juany Valladares M.D., M.P.H. - 11/07/2021 1:00 PM CST SUBJECTIVE CHIEF COMPLAINT / REASON FOR VISIT Alex Olivas is a 76 y.o. male who presents for evaluation of Memory Loss (Follow up from /Was seen for testing in [place] 10/16/21.). HISTORY OF PRESENT ILLNESS This patient [...] due to hislanguage stick background, being a [place] speaker of [place]. He went on to say that he [...] to see a neuro cognitive [place] a few remaining blood [...] EXAM COGNITION: Alert and cooperative. 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 MOTOR: Full strength [...] face patient care. Juany Valladares M.D., M.P.H. NE PAINTER documented in this encounter Plan of Treatment Scheduled Referrals Name Type Priority Associated Diagnoses Order [facility] - Outpatient Referral Routine Loss Memory Expected: Cognitive and Personality Change 11/07/19 dementia consult (Approximat e), (clinic) Expires: 02/04/2023 documented as of this encounter Results Creatinine with Estimated GFR (11/07/2021 1:45 PM MARINE PAINTER) athologist Signature Creatinine 0.89 0.74 - 11/07/2021 OWAT 1.35 mg/dL 4:04 PM MARINE PAINTER eGFR-Black/Afric >90 >=60 11/07/2021 OWAT an Guatemalan mL/min/BSA 4:04 PM MARINE PAINTER Comment: ----ADDITIONAL INFORMATION---- Estimated GFR calculated using the 2009 CKD_EPI creatinine equation. eGFR Non-Black/ 83 >=60 mL/min/BSA 4:04 PM MARINE PAINTER OWAT Comment: ----ADDITIONAL INFORMATION---- Estimated GFR calculated using the 2009 CKD_EPI creatinine equation. Specimen Anatomical Collection Method Collection Time Receive d Time (Source) Location / / Volume Laterality Blood (Blood, 11/07/2021 1:45 PM 11/07/19 3:32 Venous) MARINE PAINTER PM MARINE PAINTER Juany Valladares M.D., M.P.H. LAB BLOOD ADD-ON Performing Organization Address City/State/ZIP Code Phon e Number [facility]- [address] [place] [address] [facility] [address] System in [place] [address] Folate (11/07/2021 1:45 PM MARINE PAINTER) athologist Signature Folate, S >20.0 >=4.0 mcg/L 11/07/2021 AUST 10:26 PM MARINE PAINTER Comment: Biotin has been identified by the jarrod avila as a potential interfering substance. ??Higher concentr ations of biotin may be found in multivitamins, hair/nail supple ments, and workout supplements. ??If the result does not ma [facility] clinical observations, repeat testing after patient refrains fr om the use of supplements for at least 12 hours. Specimen Anatomical Collection Method Collection Time Receive d Time (Source) Location / / Volume Laterality Blood (Blood, 11/07/2021 1:45 PM 11/07/19 9:42 Venous) MARINE PAINTER PM MARINE PAINTER Juany Valladares M.D., M.P.H. LAB BLOOD ADD-ON Performing Organization Address City/State/ZIP Code Phon e Number [facility]- [address] [place] [address] [facility] [place] [address] [facility] [address] [facility] Vitamin B12 Assay (11/07/2021 1:45 PM MARINE PAINTER) athologist Signature Vitamin B12 [phone] 1245 11/07/2021 AUST Assay, S ng/L 10:21 PM MARINE PAINTER Comment: Biotin has been identified by the jarrod avila as a potential interfering substance. ??Higher concentr ations of biotin may be found in multivitamins, hair/nail supple ments, and workout supplements. ??If the result does not ma h clinical observations, repeat testing after patient refrains fr om the use of supplements for at least 12 hours. Specimen Anatomical Collection Method Collection Time Receive d Time (Source) Location / / Volume Laterality Blood (Blood, 11/07/2021 1:45 PM 11/07/19 9:42 Venous) MARINE PAINTER PM MARINE PAINTER Juany Valladares M.D., M.P.H. LAB BLOOD ADD-ON Performing Organization Address City/[facility]/ZIP Code Phon e Number [facility]- [address] [place] [address] [facility] [place] [address] [facility] [address] [facility] (ABNORMAL) Thyroid Function Silas (11/07/2021 1:45 PM MARINE PAINTER) athologist Signature TSH, Sensitive 0.2 (L) 0.3 - 4.2 11/07/2021 OWAT mIU/L 4:48 PM MARINE PAINTER Specimen Anatomical Collection Method Collection Time Receive d Time (Source) Location / / Volume Laterality Blood (Blood, 11/07/2021 1:45 PM 11/07/19 22 3:32 Venous) MARINE PAINTER PM MARINE PAINTER Juany Valladares M.D., M.P.H. LAB BLOOD ADD-ON Performing Organization Address City/State/ZIP Code Phon e Number [facility]- [address] [place] [address] [facility] [place] [address] System in [place] [address] Potassium (11/07/2021 1:45 PM MARINE PAINTER) athologist Signature Potassium, P 4.4 3.6 - 5.2 11/07/2021 OW[place] mmol/L 4:04 PM MARINE PAINTER Specimen Anatomical Collection Method Collection Time Receive d Time (Source) Location / / Volume Laterality Blood (Blood, 11/07/2021 1:45 PM 11/07/19 3:32 Venous) MARINE PAINTER PM MARINE PAINTER Juany Valladares M.D., M.P.H. LAB BLOOD ADD-ON Performing Organization Address City/State/ZIP Code Phon e Number [facility]- [address] [place] [address] [place] [address] System in [place] [address] Sodium (11/07/2021 1:45 PM MARINE PAINTER) athologist Signature Sodium, P 141 135 - 145 11/07/2021 4:04 [place] mmol/L PM MARINE PAINTER Specimen Anatomical Collection Method Collection Time Receive d Time (Source) Location / / Volume Laterality Blood (Blood, 11/07/2021 1:45 PM 11/07/19 22 3:32 Venous) MARINE PAINTER PM MARINE PAINTER Juany Valladares M.D., M.P.H. LAB BLOOD ADD-ON Performing Organization Address City/State/ZIP Code Phon e Number [facility] [address] [place] [address] [facility] [place] [address] System in [place] [address] CBC with Differential, Blood (11/07/2021 1:45 PM MARINE PAINTER) athologist Signature Hemoglobin 14.8 13.2 - 11/07/2021 FB60 16.6 g/dL 2:40 PM MARINE PAINTER Hematocrit 42.1 38.3 - 11/07/2021 FB60 48.6 % 2:40 PM MARINE PAINTER Erythrocytes 4.55 4.35 - 11/07/2021 FB60 5.65 2:40 PM MARINE PAINTER x10(12)/L MCV 92.5 78.2 - 11/07/2021 FB60 97.9 fL 2:40 PM MARINE PAINTER RBC Distrib Width 12.5 11.8 - 11/07/2021 FB60 14.5 % 2:40 PM MARINE PAINTER Platelet Count 139 135 - 317 11/07/2021 FB60 x10(9)/L 2:40 PM MARINE PAINTER Leukocytes 7.7 3.4 - 9.6 11/07/2021 FB60 x10(9)/L 2:40 PM MARINE PAINTER Neutrophils 5.33 1.56 - 11/07/2021 FB60 6.45 2:40 PM MARINE PAINTER x10(9)/L Lymphocytes 1.67 0.95 - 11/07/2021 FB60 3.07 2:40 PM MARINE PAINTER x10(9)/L Monocytes 0.54 0.26 - 11/07/2021 FB60 0.81 2:40 PM MARINE PAINTER x10(9)/L Eosinophils 0.12 0.03 - 11/07/2021 FB60 0.48 2:40 PM MARINE PAINTER x10(9)/L Basophils 0.01 0.01 - 11/07/2021 FB60 0.08 2:40 PM MARINE PAINTER x10(9)/L Specimen Anatomical Collection Method Collection Time Receive d Time (Source) Location / / Volume Laterality Blood (Blood, 11/07/2021 1:45 PM 11/07/19 1:45 Venous) MARINE PAINTER PM MARINE PAINTER Juany Valladares M.D., M.P.H. LAB BLOOD ADD-ON Performing Organization Address City/State/ZIP Code Phon e Number [facility]- [address] [place] [address] [facility] [address] [place] [address] System in [place] [address] documented in this encounter Visit Diagnoses Diagnosis Loss Memory - Primary Personality Change documented in this encounter
--- OUTSIDE RECORDS SUMMARY | 2022-07-03 10:26 | XMS_ITS | Encounter Summary ---
:[address] [facility] Address [address] [place] [address] Care Team Providers Name Role Phone Unavailable Primary Care Provider Unavailable Reason for Referral Specialty Diagnoses / Procedures Referred By Contact Refer red To Contact India Sue M.D. [facility] [address] [place] [address] Referral ID Status Reason Start Date Expiration Date Visits Requ ested Visits Authorized ENCE SPECIALIST Encounter Details Date Type Department Care Team Description 08/01/2021 Orders Only [facility] MNT Sa enrique Sue M.D. [address] [place] [address] [phone] (Wo rk) Social History Tobacco [...]
[2022-07-03 11:54] LABS: Albumin* 4.2 g/dL (3.3-5.0)
[2022-07-03 11:55] LABS: Chloride* 95 mmol/L (96-114); Potassium* 3.9 mmol/L (3.6-5.1); Sodium* 134 mmol/L (135-149)
[2022-07-03 11:57] LABS: Aspartate Amino Transferase* 36 U/L (12-35); Bilirubin Total* 0.6 mg/dL (0.1-1.5); Carbon Dioxide* 28 mmol/L (20-32); Estimated Glomerular Filt Rate 78 ml/min
[2022-07-03 11:58] LABS: Alanine Aminotransferase* 22 U/L (4-50); Alkaline Phosphatase* 117 U/L (40-150); Blood Urea Nitrogen* 24 mg/dL (7-30); Calcium* 9.3 mg/dL (8.4-10.6); Total Protein* 6.6 g/dL (6.0-8.3)
[2022-07-03 12:33] LABS: Glucose* 478 mg/dL (60-115)
== END 2022-07-03 10:24 | disposition home or self-care (01) ==
LOC: NFLDREF 10:25
PROVIDERS: PCP Internal Medicine; Visit Provider Internal Medicine
DX: E11.9 Type 2 diabetes mellitus without complications (principal)
CPT/HCPCS: 80053

== ENCOUNTER 2022-11-26 09:23 | Outpatient (CLI) | payer MEDICARE, BC, SELFPAY | END 2022-11-26 09:24 | disposition home or self-care (01) | PROVIDERS: PCP Internal Medicine; Visit Provider Internal Medicine | DX: K92.1 Melena (principal); I10 Essential (primary) hypertension; E78.5 Hyperlipidemia, unspecified; E11.9 Type 2 diabetes mellitus without complications | CPT/HCPCS: 80053 ==

== ENCOUNTER 2022-12-12 07:50 | Outpatient (CLI) | payer MEDICARE, BC, SELFPAY ==
--- NOTE | 2022-12-12 10:20 | W.ANESCHARGE ---
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
== END 2022-12-12 07:51 | disposition home or self-care (01) ==
LOC: OP CLINIC 07:56
PROVIDERS: PCP Internal Medicine; Visit Provider Internal Medicine
DX: K62.5 Hemorrhage of anus and rectum (principal); K52.9 Noninfective gastroenteritis and colitis, unspecified; K57.30 Diverticulosis of large intestine without perforation or abscess without bleeding
CPT/HCPCS: 45380; 811; 88305; 88342; 99100; J2704

== ENCOUNTER 2023-05-06 12:01 | Emergency (ER) | payer MEDICARE, BC, SELFPAY ==
[2023-05-06] VITALS (13 sets, daily range): BP systolic 124–150; BP diastolic 63–84; PULSE 82–90; RESP 16; TEMP 36.6; O2SAT 92–95
--- NOTE | 2023-05-06 12:26 | ED_ITS ---
HPI - General Adult General Time Seen by Provider: 12:26 Date Seen: 05/06/23 Chief complaint: Weakness Stated complaint: Confused, blood in stool, weak Time Seen by Provider: 05/06/23 12:15 History of Present Illness HPI narrative: This is a 77-year-old male was brought to the ER today by his . He has dementia so history is obtained from his . They live together. She is his primary caregiver. His past medical history includes dementia, insulin- dependent type 2 diabetes, hypertension, hyperlipidemia, previous left hip replacement, and proctitis. is concerned that he is not doing well at home. It sounds like he has had symptoms ongoing for months and she has not been able to get in for outpatient workup. She is concerned that he is doing so poorly that he can not be left at home alone anymore. She notes that he does have chronic dementia. He is on Namenda. He has been getting worse. He does not really remember their anniversary or how long they have been . He he says his memory so poor that he forgets to eat or care for himself. He often will get up in the morning unless she wakes him up. He has also been losing weight. Perhaps 20 lb weight loss over the past several months. Unclear if his diet and oral intake has changed or not. 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 He has also had bright red blood per rectum with his stools ongoing for several months. relates this to to being present since he had a colonoscopy in November. He she was told that a part of his colon at the end was inflamed. According to his medical record, there is a letter from December 12 indicating that his colonoscopy showed a short segment of inflammatory bowel disease. It sounds like they have been working to get set up with GI but do not have an appointment until August. is working through an outpatient child to try to get a follow-up with GI that might happen as early as next month. He it does not sound like he is having large volume bloody stools, melena, or abdominal pain. No vomiting. No distention. No fever. No known falls. No cough. No chest pain. No palpitations. From primary clinic records-visit in January--- 77-year-old gentleman with progressive dementia who is started to lose weight. He does know much been appetite his weight is down 20 lb. His diabetes send his blood sugars are under much better control interestingly. His blood pressure is stable. Still has some occasional rectal bleeding with regards to his recent proctitis. Suppositories have been helpful. No other concerns are noted patient is under the care of his who is now needing more assistance at home Related Data Home Medications Medication Instructions Recorded Confirmed aspirin 81 mg tablet,delayed mg PO DAILY 04/03/22 02/18/23 release clotrimazole 1 % topical cream 1 applic topical BID 04/03/22 02/18/23 insulin NPH-regular hum semi-syn ml subcut 04/03/22 02/18/23 100 unit/mL (70-30) subcutaneous soln magnesium 200 mg tablet 200 mg PO QDAY 04/03/22 02/18/23 multivitamin 1 tab PO QAM 04/03/22 02/18/23 omega 7-jqf-egc-fish oil 300 1 cap PO QDAY 04/03/22 02/18/23 mg-1,000 mg capsule (Fish Oil) vitamin B complex (B 1 tab PO QDAY 04/03/22 02/18/23 Complex-Vitamin B12 tablet) valacyclovir 1 gram tablet 1,000 mg PO Q12H 12/11/22 02/18/23 Previous Rx's Medication Instructions Recorded memantine 5 mg tablet (Namenda) 5 mg PO QAM Dementia 7 days #90 08/20/22 tabs amlodipine 10 mg-benazepril 20 mg 1 cap PO DAILY #90 caps 11/12/22 capsule peg 3350-electrolytes 236 240 ml PO ONCE #4,000 mL 11/27/22 gram-22.74 gram-6.74 gram-5.86 gram solution (Golytely) pen needle, diabetic 32 gauge x #100 ea 12/17/22 (BD Ultra-Fine Mayra Pen Needle) insulin lispro protamine-lispro 20 unit (0.2 mL) subcut QAM #10 mL 01/14/23 100 unit/mL (75-25) subcutaneous susp (Humalog Mix 75-25(U-100)Insuln) amoxicillin 500 mg capsule 2,000 mg (4 x 500 mg) PO ONCE 02/10/23 Dental Visit #4 caps tramadol 50 mg tablet 50 mg PO TID PRN pain #120 tabs 02/24/23 blood sugar diagnostic (True #200 ea 03/02/23 Metrix Glucose Test Strip) hydrochlorothiazide 25 mg tablet 25 mg PO QAM Hypertension #90 tabs 03/13/23 insulin glargine 100 unit/mL (3 25 unit (0.25 mL) subcut QPM 03/17/23 mL) subcutaneous pen (Lantus Diabetes #30 mL Solostar U-100 Insulin) gabapentin 300 mg capsule See Rx Instructions .Route 04/07/23 .COMPLEX #360 caps cefdinir 300 mg capsule 300 mg PO BID 7 days #14 caps 05/06/23 doxycycline hyclate 100 mg capsule 100 mg PO DAILY 7 days #14 caps 05/06/23 lancets 28 gauge (Advanced Travel #100 ea 05/06/23 Lancets) Allergies Allergy/AdvReac Type Severity Reaction Status Date / Time No Known Drug Allergies Allergy Verified 05/06/23 12:16 Review of Systems Narrative: As above obtained from his , otherwise limited by dementia [facility] Medical History (Updated 05/06/23 @ 15:45 by Isaias Rodriguez MD) Proctitis ?K62.89 - Other specified diseases of anus and rectum (ICD-10) Rectal bleeding ?K62.5 - Hemorrhage of anus and rectum (ICD-10) Chronic pain ?G89.29 - Other chronic pain (ICD-10) Surgical History (Updated 03/31/22 @ 14:04 by Ck Arzola) Status post total replacement of hip ?Z96.649 - Presence of unspecified artificial hip joint (ICD-10) History of hernia repair (08/29/10) ?Z98.890 - Other specified postprocedural states (ICD-10) ?Z87.19 - Personal history of other diseases of the digestive system (ICD-10) Social History (Updated 03/06/22 @ 09:29 by Declan Lopez) Narrative: Hx tobacco use Smoking Status: Former smoker How often do you have a drink containing alcohol: never AUDIT-C Alcohol total score: 0 Non-prescribed substance use: denies use Little interest or pleasure in doing things: not at all Feeling down, depressed, or hopeless: not at all Exam Narrative: Exam Narrative: Constitutional: Appears well-developed and well-nourished. Alert. Pleasant and cooperative but generally does not answer questions. Memory seems very limited by dementia. Non toxic. HENT: Head: Atraumatic. Nose: Nose normal. Mouth/Throat: Oral mucosa is clear and moist. no trismus. Pharynx normal. Tonsils symmetric. No tonsillar enlargement, erythema, or exudate. Eyes: Conjunctivae normal. EOM normal. Pupils equal, round, and reactive to light. No scleral icterus. Conjunctivae are not pale Neck: Normal range of motion. Neck supple. No tracheal deviation present. Cardiovascular: Normal rate, regular rhythm. No gallop. No friction rub. No murmur heard. Symmetric radial and dorsalis pedis artery pulses Pulmonary/Chest: Effort normal. No stridor. No respiratory distress. No wheezes. No rales. No rhonchi . No tenderness. Abdominal: Soft. Bowel sounds normal. No distension. No mass. No tenderness. No rebound. No guarding. Rectal: No fissures or hemorrhoids. There is 1 tiny speck of bright red blood on his rectum which wipes away with a tissue. No other masses. Musculoskeletal: RUE: Normal range of motion. No tenderness. No deformity LUE: Normal range of motion. No tenderness. No deformity RLE: Normal range of motion. No edema. No tenderness. No deformity LLE: Normal range of motion. No edema. No tenderness. No deformity No lower extremity or foot ulcers. He has a purplish venice on his right foot, 2nd toenail which I think is probably a healing subungual hematoma. No evidence for gangrene. Lymph: No cervical adenopathy. Neurological: Alert . Largely nonverbal. Seems to be oriented hamilton himself, not date or place. Not able to provide history. Follows simple commands appropriately. No focal deficits. Normal strength. CN II-VII intact. No sensory deficit. GCS eye subscore is 4. GCS verbal subscore is 5. GCS motor subscore is 6. Normal coordination Skin: Skin is warm and dry. No rash noted. No pallor. Normal capillary refill. Psychiatric: Limited by dementia Const: Vital Signs, click to edit/add: Vital Signs - 24 hr 05/06/23 12:14 05/06/23 13:31 05/06/23 14:01 Temperature 98 F Pulse Rate Pulse Rate [Pulse Oximeter] 84 Respiratory Rate 16 Blood Pressure 133/63 130/63 Blood Pressure [Ri ght Upper Arm] 124/84 Pulse Oximetry 95 Oxygen Delivery Me thod Room Air 05/06/23 14:28 05/06/23 14:30 05/06/23 14:31 Temperature Pulse Rate 83 84 82 Pulse Rate [Pulse Oximeter] Respiratory Rate Blood Pressure 150/71 H Blood Pressure [Ri ght Upper Arm] Pulse Oximetry 95 94 94 Oxygen Delivery Me thod 05/06/23 14:32 05/06/23 15:00 05/06/23 15:01 Temperature Pulse Rate 84 83 85 Pulse Rate [Pulse Oximeter] Respiratory Rate Blood Pressure 144/69 H Blood Pressure [Ri ght Upper Arm] Pulse Oximetry 94 93 93 Oxygen Delivery Me thod Course Vital Signs Vital signs: Initial Vital Signs Temperature 98 F 05/06/23 12:14 Temperature Source Temporal Artery Scan 05/06/23 12:14 Pulse Rate 84 05/06/23 12:14 Respiratory Rate 16 05/06/23 12:14 Blood Pressure 124/84 05/06/23 12:14 Blood Pressure Mean 97 05/06/23 12:14 Blood Pressure Position Semi-Fowlers 05/06/23 12:14 Pulse Oximetry 95 05/06/23 12:14 Oxygen Delivery Method Room Air 05/06/23 12:14 Vital Signs Temperature 98 F 05/06/23 12:14 Pulse Rate 84 05/06/23 12:14 Respiratory Rate 16 05/06/23 12:14 Blood Pressure 124/84 05/06/23 12:14 Pulse Oximetry 95 05/06/23 12:14 Oxygen Delivery Method Room Air 05/06/23 12:14 Temperature 98 F 05/06/23 12:14 Pulse Rate 85 05/06/23 15:01 Respiratory Rate 16 05/06/23 12:14 Blood Pressure 144/69 H 05/06/23 15:01 Pulse Oximetry 93 05/06/23 15:01 Oxygen Delivery Method Room Air 05/06/23 12:14 Medical Decision Making MDM Narrative Medical decision making narrative: This is a 77-year-old male with dementia, inflammatory bowel disease, brought to the ER today by his with so concern for several months of symptoms including worsening mental status, weight loss, bloody stool. He is getting to the point with his mental status that he she is not able to care for him at home anymore. 1. Neuro: Does have nonfocal altered mental status. Based on history of slowly progressive symptoms, suspect probably progressing dementia. Is already on Namenda. Head CT shows no acute intracranial findings or tumors or other abnormality. Sodium normal. lab work shows normal kidney function.. 2. GI: Patient also has had bloody stool for the past several months. Hemoglobin is stable and normal at 13.5. He is hemodynamically stable and not anticoagulated. CT scan abdomen pelvis obtained and shows a short segment of inflammation of the colon consistent with inflammatory bowel disease. At this point he is not showing any signs of surgical complications such as perforation, abscess, obstruction, or stricture. He is not having any life-threatening blood loss or heavy GI bleeding requiring serial hemoglobins are transfusion. His has been having difficulty getting him a timely appointment with GI. It sounds like the 1st available appointment she can get with Gastroenterology is actually not until August. We were able to call through and get an appointment with the GI clinic on June 19. This is still several weeks out, but at least is more timely. CT scan also shows other unexpected findings. He has a mass in the pancreas. Per report this is probably benign but needs follow-up pancreatic MRI for further characterization. Discussed with the patient and she understands the need to follow up with primary care to arrange that MRI. CT scan shows a pelvic mass that is probably in the bladder but could be arising from the seminal vesicle. Will also need follow-up imaging to further characterize that. Discussed that this also could be malignant. 3. Cardiovascular: EKG shows sinus rhythm. No clear symptoms of ischemia. 4. Pulmonary: Breathing easily here in the ER. Oxygen normal. does report some shortness of breath for the past few weeks. No concern for COPD or hypercarbia causing acute confusion. CT scan does show a left lower lobe infiltrate that is possibly an pneumonia/aspiration. Will treat with a course of antibiotics for possible community-acquired pneumonia. 5. Renal: BUN and creatinine are stable 6. Social/placement: Patient's is raising concern that he is not safe to be alone. She has his sole caregiver and they do not have any family here in the [place] to assist. Initially by history I was concerned that she was feeling exhausted and might need him to be at a memory care unit. Social work consult obtained the patient declined any offer resources. She wants keep the patient at home and is comfortable managing him there. She does not want him placed. Lab Data Labs: Lab Results 05/06/23 Range/Units 13:07 WBC 13.71 H (4.50-11.00) K/uL RBC 4.24 L (4.30-5.90) m/uL Hgb 13.5 (13.5-17.5) gm/dL Hct 39.6 (37.0-53.0) % MCV 93 (80-100) fL MCH 32 (26-34) pg MCHC 34 (32-36) gm/dL RDW Coeff of John 12.8 (11.5-15.5) % Plt Count 152 (140-440) K/uL Neut % (Auto) 88.0 H (42.0-72.0) % Lymph % (Auto) 7.7 L (20-44) % [place] % (Auto) 3.9 (0.0-11.0) % Eos % (Auto) 0.1 (0.0-7.0) % Baso % (Auto) 0.1 (0.0-3.0) % Neut # (Auto) 12.10 H (1.7-7.0) K/uL Lymph # (Auto) 1.10 (0.90-2.90) K/uL [place] # (Auto) 0.50 (0.00-0.90) K/UL Eos # (Auto) 0.00 (0.00-0.50) K/uL Baso # (Auto) 0.00 (0.00-0.30) K/uL Abs Immat Gran (auto) 0.00 (0.00-0.30) K/uL Imm/Tot Granulo (auto) 0.2 % Sodium 137 (135-149) mmol/L Potassium 4.0 (3.6-5.1) mmol/L Chloride 101 (96-114) mmol/L Carbon Dioxide 29 (20-32) mmol/L BUN 20 (7-30) mg/dL Creatinine 1.0 (0.5-1.5) mg/dL Estimated GFR 78 ml/min Glucose 352 H* (60-115) mg/dL Calcium 9.2 (8.4-10.6) mg/dL Total Bilirubin 0.8 (0.1-1.5) mg/dL AST 28 (12-35) U/L ALT 20 (4-50) U/L Alkaline Phosphatase 67 (40-150) U/L Troponin I 0.03 (0.01-0.04) ng/mL Total Protein 6.5 (6.0-8.3) g/dL Albumin 3.6 (3.3-5.0) g/dL Imaging Data CT scan - head: Radiologist's impression: IMPRESSION: Involutional changes. No acute-appearing findings. CT abd pelvis: Radiologist's impression: IMPRESSION: 1. Left basilar lung opacity probably represents pneumonia or aspiration. 2. Low-density pancreatic mass measuring about 1.5 centimeters. These are statistically most likely benign. A few smaller low-density pancreatic lesions noted. These are best study by multiphase MRI. Pancreatic head calcifications likely related to chronic calcific pancreatitis. 3. There is rectal wall thickening probably related to proctitis. There also findings of GI malrotation without evidence of mid gut volvulus. 4. There is a mass in the posterior lateral left pelvis measuring about 3.1 centimeters. This is hyperdense or hypervascular and may be associated with the left seminal vesicle, bladder or adjacent bowel. This could be neoplastic. ECG Data Attestation: I personally reviewed and interpreted this ECG as follows: Interpretation: Normal sinus rhythm rate 76. First-degree AV block. ND 210 QRS axis low voltage QRS. Normal axis. No pathologic Q-waves. ST segment/T wave: No acute ischemia. No ST segment elevation or depression. QTc: 468 Discharge Plan Discharge Clinical Impression: Mass of pancreas, Pelvic mass, Aspiration pneumonia, Proctitis, Rectal bleeding, Dementia Patient Disposition: Home, Self-Care Condition: Stable Instructions: Proctitis (ED), Aspiration Pneumonia (DC) Additional Instructions: We were able to get him an appointment with the GI clinic on June 19. Please see the precise details from the nurses. If you have any problems especially worsening confusion, worsening weakness, increasing bloody stools, fever, worsening trouble breathing, please bring him back to the ER right away. Please see Dr. Curry within the next 1-2 weeks for a checkup. He will need an MRI to recheck his pancreas AND his pelvis. The CT scan today shows a two different masses inside his body. The first mass is in his pancreas. This is probably benign, but we need the MRI to confirm that it is not cancer. The second mass is next to his bladder in his pelvis. We need an MRI to evaluate this to make sure that it is not cancer. The CT scan also shows that he has an area of pneumonia in his left lower lung. Please give him both antibiotics (cefdinir and doxycycline) twice daily for one week to help treat this pneumonia. If he has any worsening trouble breathing, bring him back to the ER to be rechecked. Follow up appointment is scheduled at the [facility] on 06/19 with a 3:30pm appointment time. Please arrive at 3:15pm to check in and complete any paperwork. If you have any questions or need to reschedule, please call [phone]. [facility] [address] [place] [address] Prescriptions: New cefdinir 300 mg capsule 300 mg PO BID 7 Days Qty: 14 0RF doxycycline hyclate 100 mg capsule 100 mg PO DAILY 7 Days Qty: 14 0RF No Action aspirin 81 mg tablet,delayed release (DR/EC) PO DAILY multivitamin Tablet 1 tab PO QAM magnesium 200 mg tablet 200 mg PO QDAY omega 1-vze-yvy-fish oil [Fish Oil] 300-1,000 mg capsule 1 cap PO QDAY vitamin B complex [B Complex-Vitamin B12] Tablet 1 tab PO QDAY clotrimazole 1 % cream 1 applic topical BID insulin NPH-regular hum s-syn 100 unit/mL (70-30) solution subcut valacyclovir 1 gram tablet 1,000 mg PO Q12H memantine [Namenda] 5 mg tablet 5 mg PO QAM 7 Days Qty: 90 3RF amlodipine-benazepril 10-20 mg capsule 1 cap PO DAILY Qty: 90 2RF peg 3350-electrolytes [Golytely] 236-22.74-6.74 -5.86 gram recon soln 240 ml PO ONCE Qty: 4000 0RF Rx Instructions: 4pm day prior to procedure. Drink 8oz glass every 15 minutes until 1/2 of solution is gone. 6 hours prior to procedure drink 8 oz glass every 15 minutes until remaining solution gone. (DME) pen needle, diabetic [BD Ultra-Fine Mayra Pen Needle] 32 gauge x 5/32 needle See Rx Instructions .Route Qty: 100 3RF Rx Instructions: 1 EA QID Humalog Mix 75-25(U-100)Insuln 100 unit/mL (75-25) suspension 20 unit subcut QAM Qty: 10 1RF amoxicillin 500 mg capsule 2,000 mg PO ONCE Qty: 4 0RF Rx Instructions: 1 HOUR PRIOR TO APPT tramadol 50 mg tablet 50 mg PO TID PRN (Reason: pain) Qty: 120 0RF (DME) True Metrix Glucose Test Strip Strip See Rx Instructions .Route Qty: 200 3RF Rx Instructions: 2 tests daily hydrochlorothiazide 25 mg tablet 25 mg PO QAM Qty: 90 3RF insulin glargine [Lantus Solostar U-100 Insulin] 100 unit/mL (3 mL) insulin pen 25 unit subcut QPM Qty: 30 3RF gabapentin 300 mg capsule See Rx Instructions .ROUTE .COMPLEX Qty: 360 0RF Dose Instruction: TAKE TWO CAPSULES BY MOUTH TWICE DAILY Rx Instructions: TAKE TWO CAPSULES BY MOUTH TWICE DAILY (DME) lancets [Advanced Travel Lancets] 28 gauge misc See Rx Instructions .Route Qty: 100 1RF Rx Instructions: As directed Follow Up/Referrals: Luis Felipe Curry MD [Primary Care Provider] - (Please follow-up in clinic within 1 week to recheck. Has pancreatic (likely benign) mass AND pelvic mass (either bladder or seminal vesicle) on abdomen/pelvis CT. May need MRI for follow-up.) Stand Alone Forms: [facility]
--- NOTE | 2023-05-06 12:50 | CRLHL7_ITS ---
For Patients: As a result of the Century Cures Act, medical imaging exams and procedure reports are released immediately into your electronic medical record. You may view this report before your referring provider. If you have questions, please contact your health care provider. INDICATION: Confusion COMPARISON: None TECHNIQUE: CT examination of the head was performed as axial sections without intravenous contrast. Images were obtained from the vertex of the skull through the skull base. Please note that all CT scans at this facility use dose modulation, iterative reconstruction, and/or weight-based dosing when appropriate to reduce radiation dose to as low as reasonably achievable. FINDINGS: The brain shows no sign of mass lesion, mass effect, hemorrhage, or edema. There are involutional changes. There is moderate to severe cortical atrophy and there is moderate to severe white matter disease. There is no hydrocephalus. The visualized portions of the orbits are normal in appearance. The osseous structures are normal in appearance with no sign of abnormality in the skull base or calvarium. IMPRESSION: Involutional changes. No acute-appearing findings. Please note that all CT scans at this facility use dose modulation, iterative reconstruction, and/or weight-based dosing when appropriate to reduce radiation dose to as low as reasonably achievable. Dictated by Tung Morales MD @ 05/06/2023 2:45:48 PM (Electronically Signed)
--- NOTE | 2023-05-06 12:50 | CRLHL7_ITS ---
For Patients: As a result of the 21st Century Cures Act, medical imaging exams and procedure reports are released immediately into your electronic medical record. You may view this report before your referring provider. If you have questions, please contact your health care provider. INDICATION: Hematochezia and weight loss. COMPARISON: There are no prior studies for comparison TECHNIQUE: CT examination of the abdomen and pelvis was performed following the uneventful intravenous administration of 81 cc of Isovue 370. Thin section axial images were obtained from the lung bases through the pubic symphysis. Oral contrast was not administered. Please note that all CT scans at this facility use dose modulation, iterative reconstruction, and/or weight-based dosing when appropriate to reduce radiation dose to as low as reasonably achievable. FINDINGS: LUNG BASES: Basilar opacity on the left may represent pneumonia or aspiration. Minimal atelectasis the right base. The heart size is normal at the lung bases. LIVER/BILIARY SYSTEM:The liver is normal in size and configuration. There is no focal mass and there is no intra- or extra hepatic biliary ductal dilatation.The gall bladder appears normal. ADRENALS: Normal KIDNEYS, URETERS and BLADDER:The kidneys appear normal. No visible mass, calculus or hydronephrosis. The ureters and bladder as visualized appear normal. SPLEEN:Normal appearance. PANCREAS: There is a low-density mass associated with the junction of the body and tail of the pancreas. This is best seen on image 33 and measures about 1.5 centimeters. A few additional tiny low-density lesions are noted in the pancreas. These are best characterized by multiphase MRI. There also calcifications probably associated with the pancreatic head which artery related usually to remote pancreatitis RETROPERITONEUM and MESENTERY: There is no mass, adenopathy or aortic aneurysm. GASTROINTESTINAL SYSTEM: There is evidence of abnormal got rotation. This is a form of a malrotation. There is no portion of the duodenum that traverses under the SMA and most of the small bowel is in the right upper quadrant. The cecum is also deviated to the left. There is no associated midgut volvulus. There is some thickening of the rectum which is probably due to proctitis. PELVIS: Difficult to evaluate due to streak artifact from a left hip arthroplasty. There is apparent hyperdense or hypervascular mass in the left pelvis which may be associated with the left seminal vesicle. This is best seen on series 3, image 29 measuring 3.1 centimeters. This could be naz or could be exophytic associated with the bladder or adjacent bowel. Follow-up evaluation of this is advised.A repeat study with oral contrast or perhaps an MRI may determine the exact organ of origin OSSEOUS STRUCTURES and ABDOMINAL WALL: There is an age-appropriate appearance of the osseous structures.Induration of the anterior abdominal wall probably due to subcutaneous injections. OTHER: No free fluid or free air. IMPRESSION: 1. Left basilar lung opacity probably represents pneumonia or aspiration. 2. Low-density pancreatic mass measuring about 1.5 centimeters. These are statistically most likely benign. A few smaller low-density pancreatic lesions noted. These are best study by multiphase MRI. Pancreatic head calcifications likely related to chronic calcific pancreatitis. 3. There is rectal wall thickening probably related to proctitis. There also findings of GI malrotation without evidence of mid gut volvulus. 4. There is a mass in the posterior lateral left pelvis measuring about 3.1 centimeters. This is hyperdense or hypervascular and may be associated with the left seminal vesicle, bladder or adjacent bowel. This could be neoplastic. Please note that all CT scans at this facility use dose modulation, iterative reconstruction, and/or weight-based dosing when appropriate to reduce radiation dose to as low as reasonably achievable. Dictated by Tung Morales MD @ 05/06/2023 2:57:27 PM (Electronically Signed)
[2023-05-06 13:22] LABS: Basophils Percent Auto 0.1 % (0.0-3.0); Eosinophils Percent Auto 0.1 % (0.0-7.0); Hematocrit 39.6 % (37.0-53.0); Hemoglobin* 13.5 gm/dL (13.5-17.5); Immature Granulocytes Pct Auto 0.2 %; Lymphocytes Percent Auto 7.7 % (20-44); Mean Corpuscular HGB Conc 34 gm/dL (32-36); Mean Corpuscular Hemoglobin 32 pg (26-34); Mean Corpuscular Volume 93 fL (80-100); Monocytes Percent Auto 3.9 % (0.0-11.0); Platelet Count* 152 K/uL (140-440); RDW Coefficient of Variation % 12.8 % (11.5-15.5); Red Blood Count 4.24 m/uL (4.30-5.90); White Blood Count* 13.71 K/uL (4.50-11.00)
[2023-05-06 13:31] LABS: Slide Review Reflex No
[2023-05-06 13:34] LABS: Albumin* 3.6 g/dL (3.3-5.0); Chloride* 101 mmol/L (96-114)
[2023-05-06 13:35] LABS: Sodium* 137 mmol/L (135-149)
[2023-05-06 13:37] LABS: Aspartate Amino Transferase* 28 U/L (12-35); Bilirubin Total* 0.8 mg/dL (0.1-1.5); Carbon Dioxide* 29 mmol/L (20-32); Estimated Glomerular Filt Rate 78 ml/min; Total Protein* 6.5 g/dL (6.0-8.3)
[2023-05-06 13:38] LABS: Alanine Aminotransferase* 20 U/L (4-50); Alkaline Phosphatase* 67 U/L (40-150); Blood Urea Nitrogen* 20 mg/dL (7-30); Calcium* 9.2 mg/dL (8.4-10.6)
[2023-05-06 13:50] LABS: Troponin I* 0.03 ng/mL (0.01-0.04)
[2023-05-06 13:54] LABS: Glucose* 352 mg/dL (60-115)
--- NOTE | 2023-05-06 14:25 | PC.SOCIAL ---
Social work: Met with at request of to provide resources and information on placement options if care at home is too much for her. When offered these resources, states she is not ready for that and denies that she has any trouble taking care of pt at home. states she needs help with gardening due to a foot injury, but is not interested in help for at home or placement in a facility. states she is interested in respite care for him if she needs to visit her daughter who lives in [place] and is ill. machine lay out worker offered to provide her with these resources on respite care facilities in this area, but refused and stated she already has that information. shared that she has a [employer] machine lay out worker, Edin [phone], who calls her frequently and asks if she needs assistance and that she has already left him a message today to ask if he can find someone to help her with her garden being overgrown with weeds. gave permission to call Edin to leave another message requesting he contact her at home, but when this social science analyst called the number provided it was for the [employer]. machine lay out worker held for several minutes without being able to leave a message, so no contact was made with this social science analyst. refused all resources and information offered regarding placement or respite care and denied any need for home care.
== END 2023-05-06 16:10 | disposition home or self-care (01) ==
PROVIDERS: Emergency Provider Emergency Medicine; PCP Internal Medicine
DX: K86.89 Other specified diseases of pancreas (principal); R19.00 Intra-abdominal and pelvic swelling, mass and lump, unspecified site; J69.0 Pneumonitis due to inhalation of food and vomit; K62.89 Other specified diseases of anus and rectum; K62.5 Hemorrhage of anus and rectum; F03.90 Unspecified dementia, unspecified severity, without behavioral disturbance, psychotic disturbance, mood disturbance, and anxiety
CPT/HCPCS: 36415; 70450; 74177; 80053; 84484; 85025; 93005; 99283; 99284; 99285; Q9967

== ENCOUNTER 2023-05-28 13:07 | Outpatient (CLI) | payer MEDICARE, BC, SELFPAY ==
--- NOTE | 2023-05-28 13:45 | CRLHL7_ITS ---
For Patients: As a result of the Century Cures Act, medical imaging exams and procedure reports are released immediately into your electronic medical record. You may view this report before your referring provider. If you have questions, please contact your health care provider. INDICATION: Mass pancreas ; Further assessment. COMPARISON: CT abdomen and pelvis with intravenous contrast May 06, 2023. TECHNIQUE: Precontrast T1 and T2 weighted imaging; T2 haste imaging; diffusion weighted imaging; in and out of phase imaging; postcontrast imaging ; 15 cc off dotarem contrast was injected; significant degradation of the quality of the study due to respiratory motion postcontrast administration. Findings : Several cystic lesions identified in the body and tail of the pancreas. A 1.6 cm cystic lesion tail of the pancreas. Tiny cysts identified within the head of the pancreas. No evidence of pancreatic ductal dilatation. No peripancreatic inflammatory changes. No evidence of biliary duct dilatation. Gallbladder is unremarkable. Mild fatty infiltration of the liver. No splenic pathology. No adrenal pathology. Simple cortical cysts left kidney. No retroperitoneal lymphadenopathy. IMPRESSION: 1. Cystic lesions predominantly in the tail of the pancreas; rule out side branch IPMN ; Followup MRCP and MRI of the pancreas with contrast suggested. 2. Mild diffuse fatty infiltration of the liver. 3. Simple cortical cysts left kidney. Dictated by Humberto Springer MD @ 06/04/2023 4:12:35 AM (Electronically Signed)
== END 2023-05-28 13:08 | disposition home or self-care (01) ==
LOC: MRI 13:07
PROVIDERS: PCP Internal Medicine; Visit Provider Internal Medicine
DX: K86.89 Other specified diseases of pancreas (principal); K76.0 Fatty (change of) liver, not elsewhere classified; N28.1 Cyst of kidney, acquired
CPT/HCPCS: 74183; A9575

== ENCOUNTER 2023-06-09 15:30 | Outpatient (CLI) | payer MEDICARE, BC, SELFPAY | END 2023-06-09 15:31 | disposition home or self-care (01) | PROVIDERS: PCP Internal Medicine; Visit Provider Internal Medicine | DX: I10 Essential (primary) hypertension (principal); E78.5 Hyperlipidemia, unspecified; E11.9 Type 2 diabetes mellitus without complications; F03.90 Unspecified dementia, unspecified severity, without behavioral disturbance, psychotic disturbance, mood disturbance, and anxiety | CPT/HCPCS: 80053; 84439; 84443 ==

== ENCOUNTER 2023-06-16 14:46 | Outpatient (CLI) | payer MEDICARE, BC, SELFPAY | END 2023-06-16 14:47 | disposition home or self-care (01) | PROVIDERS: PCP Internal Medicine; Visit Provider Internal Medicine | DX: E05.90 Thyrotoxicosis, unspecified without thyrotoxic crisis or storm (principal); E11.9 Type 2 diabetes mellitus without complications; I10 Essential (primary) hypertension; E78.5 Hyperlipidemia, unspecified | CPT/HCPCS: 83520; 86376 ==

== ENCOUNTER 2023-06-22 13:53 | Outpatient (CLI) | payer MEDICARE, BC, SELFPAY ==
--- NOTE | 2023-06-22 14:00 | CRLHL7_ITS ---
For Patients: As a result of the Century Cures Act, medical imaging exams and procedure reports are released immediately into your electronic medical record. You may view this report before your referring provider. If you have questions, please contact your health care provider. INDICATION: THYROTOXICOSIS COMPARISON: none TECHNIQUE: Ribeiro scale and color Doppler images were acquired of the thyroid gland. FINDINGS: The thyroid gland demonstrates diffusely heterogeneous echogenicity and has a lobular outer contour. The right lobe measures 9.9 x 3.6 x 4.8 cm and the left lobe measures 9.7 x 4.1 x 3.7 cm in size. The isthmus measures 1 cm. There are no suspicious masses or nodules. The color Doppler images demonstrate diffusely increased vascularity. There is no evidence of cervical lymphadenopathy or parathyroid mass. IMPRESSION: Enlarged and heterogeneous thyroid with increased vascularity. No thyroid nodule. Dictated by Matias De Santiago MD @ 06/23/2023 10:47:09 AM (Electronically Signed)
== END 2023-06-22 13:54 | disposition home or self-care (01) ==
LOC: US 13:54
PROVIDERS: PCP Internal Medicine; Visit Provider Internal Medicine
DX: E05.90 Thyrotoxicosis, unspecified without thyrotoxic crisis or storm (principal)
CPT/HCPCS: 76536

== ENCOUNTER 2023-07-16 13:42 | Outpatient (CLI) | payer MEDICARE, BC, SELFPAY ==
--- NOTE | 2023-07-16 14:00 | CRLHL7_ITS ---
For Patients: As a result of the Century Cures Act, medical imaging exams and procedure reports are released immediately into your electronic medical record. You may view this report before your referring provider. If you have questions, please contact your health care provider. INDICATION: Thyrotoxicosis. TECHNIQUE: 224 microcuries of iodine 123 has been given orally 24 hours prior to imaging. FINDINGS: The 24 uptake is mildly elevated at 34 percent. Normal is between 10 and 30 percent. The gland appears prominent. There is heterogeneous activity. There is medial left increased activity noted with somewhat ill-defined margins. IMPRESSION: 1. Abnormal 24 uptake is identified at 34 percent. 2. The thyroid is prominent. There is heterogeneous activity with relative increased activity in the medial left thyroid. There is no significant suppression of uptake of the remaining thyroid. Dictated by Reginald Mccartney MD @ 07/16/2023 4:42:36 PM (Electronically Signed)
== END 2023-07-16 13:43 | disposition home or self-care (01) ==
LOC: NM 07-20 12:58
PROVIDERS: PCP Internal Medicine; Visit Provider Internal Medicine
DX: E05.90 Thyrotoxicosis, unspecified without thyrotoxic crisis or storm (principal)
CPT/HCPCS: 78014; A9509

== ENCOUNTER 2023-07-29 09:55 | Outpatient (CLI) | payer MEDICARE, BC, SELFPAY | END 2023-07-29 09:56 | disposition home or self-care (01) | LOC: NFLDREF 09:56 | PROVIDERS: PCP Internal Medicine; Visit Provider Internal Medicine | DX: E05.90 Thyrotoxicosis, unspecified without thyrotoxic crisis or storm (principal); I10 Essential (primary) hypertension | CPT/HCPCS: 84439; 84443 ==

== ENCOUNTER 2023-12-02 09:05 | Outpatient (CLI) | payer MEDICARE, BC, SELFPAY | END 2023-12-02 09:06 | disposition home or self-care (01) | LOC: NFLDREF 12-04 12:10 | PROVIDERS: PCP Internal Medicine; Referring Provider Internal Medicine; Visit Provider Internal Medicine | DX: E05.90 Thyrotoxicosis, unspecified without thyrotoxic crisis or storm (principal); E78.5 Hyperlipidemia, unspecified; E11.40 Type 2 diabetes mellitus with diabetic neuropathy, unspecified; Z79.4 Long term (current) use of insulin; I10 Essential (primary) hypertension | CPT/HCPCS: 80053; 80061; 84439; 84443 ==

== ENCOUNTER 2023-12-17 14:40 | Emergency (ER) | payer MEDICARE, BC, SELFPAY ==
[2023-12-17 14:45] VITALS: BP 149/72; PULSE 91; RESP 16; TEMP 36.5; O2SAT 93; BMI 26.6
--- NOTE | 2023-12-17 15:05 | ED_ITS ---
HPI - General Adult General Date Seen: 12/17/23 Chief complaint: Hip Injury/Pain Stated complaint: fell, injured hip Time Seen by Provider: 12/17/23 14:46 History of Present Illness HPI narrative: 78-year-old male with a history of previous left hip replacement, history of dementia, presenting to the ER today for evaluation of left hip pain. He has dementia but is able to live at home with his . He fell on Thursday in his left hip. reports he was in the kitchen and walking when he accidentally lost his balance and fell. She is confident that he slipped and fell and did not faint or have a seizure. He landed hard with all of his weight on his left hip. He did not hit his head. No loss of consciousness. No injury aside from his left hip. was able to help him get up but he had a lot of pain with trying to bear weight in his left hip so she helped him get into bed. He has been using her walker to transfer back and forth from bed to the bathroom but otherwise is pending most of his time in bed. has been bringing him food and water and he has been eating and drinking normally. Normal urine output. He was refusing to come to this is Dr. Samuel those wanted him to come. She was giving him oral oxycodone, 5 mg tablets as needed for pain. He had 1 yesterday and 1 the day before. He does not take any blood thinners. No pain in his back, lumbar spine, ribs. No shortness of breath. No numbness or weakness in his leg. Related Data Home Medications Medication Instructions Recorded Confirmed aspirin 81 mg tablet,delayed mg PO DAILY 04/03/22 12/07/23 release clotrimazole 1 % topical cream 1 applic topical BID 04/03/22 12/07/23 insulin NPH-regular hum semi-syn ml subcut 04/03/22 12/07/23 100 unit/mL (70-30) subcutaneous soln magnesium 200 mg tablet 200 mg PO QDAY 04/03/22 12/07/23 multivitamin 1 tab PO QAM 04/03/22 12/07/23 omega 5-gle-kxe-fish oil 300 1 cap PO QDAY 04/03/22 12/07/23 mg-1,000 mg capsule (Fish Oil) vitamin B complex (B 1 tab PO QDAY 04/03/22 12/07/23 Complex-Vitamin B12 tablet) Previous Rx's Medication Instructions Recorded hydrochlorothiazide 25 mg tablet 25 mg PO QAM Hypertension #90 tabs 03/13/23 gabapentin 300 mg capsule See Rx Instructions .Route 04/07/23 .COMPLEX #360 caps amoxicillin 500 mg capsule 2,000 mg (4 x 500 mg) PO 07/10/23 DIRECTED Dental Procedure #4 caps insulin glargine 100 unit/mL (3 25 - 30 unit (0.25 - 0.3 mL) 07/29/23 mL) subcutaneous pen (Lantus subcut BID DM #45 mL Solostar U-100 Insulin) amlodipine 10 mg-benazepril 20 mg 1 cap PO DAILY #90 caps 08/04/23 capsule triamcinolone acetonide 0.1 % 1 applic topical QDAY #30 grams 09/28/23 topical cream tramadol 50 mg tablet 50 mg PO TID PRN pain #120 tabs 11/06/23 insulin lispro protamine-lispro 20 unit (0.2 mL) subcut QAM #10 mL 11/10/23 100 unit/mL (75-25) subcutaneous susp (Humalog Mix 75-25(U-100)Insuln) pen needle, diabetic 32 gauge x #100 ea 12/01/23 (BD Ultra-Fine Mayra Pen Needle) blood sugar diagnostic (Contour #200 ea 12/02/23 Next Test Strips) lancets (Microlet Lancet) #200 ea 12/02/23 pregabalin 50 mg capsule (Lyrica) 50 mg PO BID #60 caps 12/07/23 oxycodone 5 mg capsule 5 mg PO Q8H PRN pain #10 caps 12/17/23 Allergies Allergy/AdvReac Type Severity Reaction Status Date / Time No Known Drug Allergies Allergy Verified 12/07/23 14:06 [facility] Medical History (Updated 12/17/23 @ 18:35 by Isaias Rodriguez MD) Adhesive capsulitis of shoulder (2009) ?M75.00 - Adhesive capsulitis of unspecified shoulder (ICD-10) Basal cell carcinoma (BCC) ?C44.91 - Basal cell carcinoma of skin, unspecified (ICD-10) Rash ?R21 - Rash and other nonspecific skin eruption (ICD-10) Hyperthyroidism ?E05.90 - Thyrotoxicosis, unspecified without thyrotoxic crisis or storm (ICD-10) Mass of pancreas ?K86.89 - Other specified diseases of pancreas (ICD-10) Proctitis ?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 - Other specified diseases of anus and rectum (ICD-10) Rectal bleeding ?K62.5 - Hemorrhage of anus and rectum (ICD-10) Chronic pain ?G89.29 - Other chronic pain (ICD-10) Surgical History (Updated 09/29/23 @ 11:25 by Mary Thomas ~ MEDICAL ASSISTANT INSTRUCTOR, MEDICAL ASSISTANT INSTRUCTOR) History of hemorrhoidectomy (~1964) ?Z98.890 - Other specified postprocedural states (ICD-10) History of shoulder surgery (09/04/10) ?Z98.890 - Other specified postprocedural states (ICD-10) 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) ?Z96.642 - Presence of left artificial hip joint (ICD-10) History of hernia repair (~1989) ?Z98.890 - Other specified postprocedural states (ICD-10) ?Z87.19 - Personal history of other diseases of the digestive system (ICD-10) Social History (Updated 03/06/22 @ 09:29 by Declan Lopez) Narrative: Hx tobacco use Smoking Status: Former smoker How often do you have a drink containing alcohol: never AUDIT-C Alcohol total score: 0 Non-prescribed substance use: denies use Little interest or pleasure in doing things: not at all Feeling down, depressed, or hopeless: not at all Exam Narrative: Exam Narrative: Constitutional: Appears well-developed and well-nourished. Alert. Conversant but unreliable historian. Non toxic. HENT: Head: Atraumatic. Nose: Nose normal. Mouth/Throat: Oral mucosa is clear and moist. no trismus. Pharynx normal. Tonsils symmetric. No tonsillar enlargement, erythema, or exudate. Eyes: Conjunctivae normal. EOM normal. Pupils equal, round, and reactive to light. No scleral icterus. Neck: Normal range of motion. Neck supple. No tracheal deviation present. Cardiovascular: Normal rate, regular rhythm. No gallop. No friction rub. No murmur heard. Symmetric radial artery pulses Pulmonary/Chest: Effort normal. No stridor. No respiratory distress. No wheezes. No rales. No rhonchi . No tenderness. Abdominal: Soft. Bowel sounds normal. No distension. No mass. No tenderness. No rebound. No guarding. Musculoskeletal: No T or L-spine tenderness. RUE: Normal range of motion. No tenderness. No deformity LUE: Normal range of motion. No tenderness. No deformity RLE: Normal range of motion. No edema. No tenderness. No deformity LLE: Patient is tender with bruising over left lateral hip. He has a healed left hip surgical incision. Incision looks good. He is also quite tender over the anterior pelvis on the left side. No crepitus. Pelvis is stable. Femoral shaft nontender. Knee, lower leg, ankle, foot nontender. Limited range of motion the left hip. He is able to flex his hip to about 45? and flex his knee to 90. Ankle normal. Neurological: Alert and oriented to person, place, but not date. He is at his baseline for dementia.. Normal strength in both upper extremities, 5/5 sonogram technician, biceps, triceps, deltoid.. CN II-VII intact. No sensory deficit. Intact sensory function bilaterally on the lateral hip, medial and lateral thigh, medial and lateral calf, medial and lateral malleoli. He does have bilateral tingling in both of his feet, which is chronic. GCS eye subscore is 4. GCS verbal subscore is 5. GCS motor subscore is 6. Normal coordination Skin: Skin is warm and dry. No rash noted. No pallor. Normal capillary refill. Psychiatric: Normal mood. Normal affect. Const: Vital Signs, click to edit/add: Vital Signs - 24 hr 12/17/23 14:45 Temperature 97.7 F Pulse Rate [Pulse Oximeter] 91 Respiratory Rate 16 Blood Pressure [Ri ght Upper Arm] 149/72 H Pulse Oximetry 93 Oxygen Delivery Me thod Room Air Course Vital Signs Vital signs: Initial Vital Signs Temperature 97.7 F 12/17/23 14:45 Temperature Source Temporal Artery Scan 12/17/23 14:45 Pulse Rate 91 12/17/23 14:45 Respiratory Rate 16 12/17/23 14:45 Blood Pressure 149/72 H 12/17/23 14:45 Blood Pressure Mean 97 12/17/23 14:45 Blood Pressure Position Sitting 12/17/23 14:45 Pulse Oximetry 93 12/17/23 14:45 Oxygen Delivery Method Room Air 12/17/23 14:45 Vital Signs Temperature 97.7 F 12/17/23 14:45 Pulse Rate 91 12/17/23 14:45 Respiratory Rate 16 12/17/23 14:45 Blood Pressure 149/72 H 12/17/23 14:45 Pulse Oximetry 93 12/17/23 14:45 Oxygen Delivery Method Room Air 12/17/23 14:45 Temperature 97.7 F 12/17/23 14:45 Pulse Rate 91 12/17/23 14:45 Respiratory Rate 16 12/17/23 14:45 Blood Pressure 149/72 H 12/17/23 14:45 Pulse Oximetry 93 12/17/23 14:45 Oxygen Delivery Method Room Air 12/17/23 14:45 Medical Decision Making MDM Narrative Medical decision making narrative: Very pleasant 78-year-old gentleman brought to the ER today by his for evaluation of acute left hip pain after mechanical slip and fall that occurred a few days ago at home. Their only concern is for the left hip pain. They are confident that he did not hit his head, injure his neck, or otherwise injure his body since he fell. They have been treating his pain with oxycodone and is comfortable resting in bed but still having a lot of pain and difficulty ambulating since the fall. They have also noted developing a bruising on the lateral left hip. He has had a previous left total hip replacement. He is neurovascularly intact in the left leg. No other signs of trauma on exam. X-ray of the patient's left hip was read to show no acute fracture by Radiology. On my review I was suspicious for possible nondisplaced superior pubic rami fracture. We did send the patient for CT pelvis to double check for possible bony injury. CT pelvis is also read as normal. At this point I do not think that patient is to be admitted for MRI of his pelvis. Will treat supportively for left hip pain, possibly contusion after the fall. If there is a an occult pubic rami fracture not seen on CT, management would be supportive with weight- bearing as tolerated and pain management. Prescription for oxycodone provided. They understand opiate precautions. Precautions for return to the ER reviewed. Questions answered. Patient and his are eager for discharge. Imaging Data XR pelvis and left hip: Attestation: I have reviewed the pertinent imaging results. Radiologist's impression: Findings/Impression: Bones: No evidence of fracture. Joint spaces: Status post left total hip replacement without evidence of dislocation. Right hip osteoarthritis. Soft tissues: Lateral soft tissue swelling. CT pelvis without contrast: Attestation: I have reviewed the pertinent imaging results. Radiologist's impression: Impression: No acute bony abnormality. Unremarkable left total knee arthroplasty. Discharge Plan Discharge Clinical Impression: Acute pain of left hip Patient Disposition: Home, Self-Care Condition: Stable Instructions: Hip Pain (ED) Additional Instructions: As we discussed there is no sign of any broken bones on his x-ray or CT scan today. We suspect that his pain might be due to a bruise were sprain of his hip from falling. This should heal with time. Use Tylenol if needed for pain. Use oxycodone if needed for severe pain. Use caution with oxycodone because it can cause dizziness, drowsiness, and falls. Use the walker as needed to help him balance. If he is not completely improved within the next 3-4 days, please recheck with his regular doctor or return to the ER for re-evaluation. Prescriptions: New oxycodone 5 mg capsule 5 mg PO Q8H PRN (Reason: pain) Qty: 10 0RF No Action insulin glargine [Lantus Solostar U-100 Insulin] 100 unit/mL (3 mL) insulin pen 25 - 30 unit subcut BID Qty: 45 3RF Rx Instructions: 25 units before evening meal and 30 units before bedtime. aspirin 81 mg tablet,delayed release (DR/EC) PO DAILY multivitamin Tablet 1 tab PO QAM magnesium 200 mg tablet 200 mg PO QDAY omega 0-lrf-jch-fish oil [Fish Oil] 300-1,000 mg capsule 1 cap PO QDAY vitamin B complex [B Complex-Vitamin B12] Tablet 1 tab PO QDAY clotrimazole 1 % cream 1 applic topical BID insulin NPH-regular hum s-syn 100 unit/mL (70-30) solution subcut triamcinolone acetonide 0.1 % cream 1 applic topical QDAY Qty: 30 0RF pregabalin [Lyrica] 50 mg capsule 50 mg PO BID Qty: 60 0RF hydrochlorothiazide 25 mg tablet 25 mg PO QAM Qty: 90 3RF gabapentin 300 mg capsule See Rx Instructions .ROUTE .COMPLEX Qty: 360 0RF Dose Instruction: TAKE TWO CAPSULES BY MOUTH TWICE DAILY Rx Instructions: TAKE TWO CAPSULES BY MOUTH TWICE DAILY amoxicillin 500 mg capsule 2,000 mg PO DIRECTED Qty: 4 2RF Rx Instructions: Take 4 caps 1 hour prior to dental appointment. amlodipine-benazepril 10-20 mg capsule 1 cap PO DAILY Qty: 90 2RF tramadol 50 mg tablet 50 mg PO TID PRN (Reason: pain) Qty: 120 0RF Humalog Mix 75-25(U-100)Insuln 100 unit/mL (75-25) suspension 20 unit subcut QAM Qty: 10 1RF (DME) pen needle, diabetic [BD Ultra-Fine Mayra Pen Needle] 32 gauge x 5/32 needle See Rx Instructions .Route Qty: 100 3RF Rx Instructions: 1 EA QID (DME) Contour Next Test Strips Strip See Rx Instructions .Route Qty: 200 3RF Rx Instructions: Use to test blood sugar twice daily (DME) lancets [Microlet Lancet] Misc See Rx Instructions .Route Qty: 200 3RF Rx Instructions: Use to test blood sugar twice daily Follow Up/Referrals: Luis Felipe Curry MD [Primary Care Provider] - Stand Alone Forms: [facility] Info Inst[facility]
--- NOTE | 2023-12-17 15:06 | XR_ITS ---
Patient: MAXI MCGRATH Facility:?[facility] Patient ID:?[id number] Site Patient ID:?[id number]. Site :?[id number] Study:?XRay-Hip Left 2V-12/17/2023 4:06:47 PM Ordering Physician:?DR. COLVIN Final Report: Indication: Hip injury, pain Technique: Three views Comparison: 12/02/2017 Findings/Impression: Bones: No evidence of fracture. Joint spaces: Status post left total hip replacement without evidence of dislocation. Right hip osteoarthritis. Soft tissues: Lateral soft tissue swelling. Dictated by Gio Maria MD @ 12/17/2023 4:32:10 PM Signed by:?Gio Maria MD @12/17/2023 4:32:10 PM (Electronic Signature)
--- NOTE | 2023-12-17 16:47 | CT_ITS ---
Patient: MAXI MCGRATH Facility:?[facility] Patient ID:?[id number] Site Patient ID:?[id number]. Site :?[id number] Study:?CT-Pelvis (Bony) W/O-12/17/2023 5:16:20 PM Ordering Physician:ARISTIDES Final Report: Indication: FELL, SUSPECT PELVIC RING FX Technique: Noncontrast CT of the pelvis. Please note that all CT scans at this facility use dose modulation, iterative reconstruction, and/or weight-based dosing when appropriate to reduce radiation dose to as low as reasonably achievable. Comparison: Left hip radiographs from the same day Findings: Unremarkable left total hip arthroplasty. Moderate degenerative changes of the right hip. No acute fracture. Alignment is normal. No aggressive osseous lesion. Lower lumbar spondylosis. No free fluid in the pelvis. Atherosclerotic disease. Nonspecific subcutaneous stranding in the lower anterior pelvic wall Impression: No acute bony abnormality. Unremarkable left total knee arthroplasty. Please note that all CT scans at this facility use dose modulation, iterative reconstruction, and/or weight-based dosing when appropriate to reduce radiation dose to as low as reasonably achievable. Dictated by Isaias Currie MD @ 12/17/2023 6:25:41 PM ----- ADDENDUM ----- Correction to the IMPRESSION: The second sentence should read unremarkable left total hip arthroplasty. Dictated by Isaias Currie MD @ Dec 17 2023 7:21PM Signed by:?Isaias Currie MD @12/17/2023 6:25:41 PM (Electronic Signature)
== END 2023-12-17 18:46 | disposition home or self-care (01) ==
PROVIDERS: Emergency Provider Emergency Medicine; PCP Internal Medicine
DX: M25.552 Pain in left hip (principal)
CPT/HCPCS: 72192; 73502; 99283; 99284; 99285

== ENCOUNTER 2024-07-26 15:41 | Outpatient (CLI) | payer MEDICARE, BC, SELFPAY ==
--- OUTSIDE RECORDS SUMMARY | 2024-07-26 15:43 | XMS_ITS | Clinical Summary ---
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 1 7 Active BD INSULIN PEN NEEDLE UF MINI 31 gauge x 3/16 As directed 1 Device 3 times daily. 1 7 Active multivitamin (MVI) tablet Take 1 tablet by mouth once daily. 0 7 Active aspirin (ECOTRIN) 81 mg enteric coated tablet Take 1 tablet by mouth once daily with a meal. 0 8 Active naproxen (NAPROSYN) 500 mg tablet Take 1 tablet by mouth 2 times daily with meals. 2 tablet 8 Active HUMALOG KWIKPEN INSULIN 100 unit/mL inpn pen 20 units subcutaneously daily patient states 3 mL 8 Active fish oil-omega-3 fatty acids (FISH OIL) 1,000-340 mg capsule Take 1 capsule by mouth once daily. 0 8 Active LANTUS SOLOSTAR U-100 INSULIN 100 unit/mL (3 mL) pen Inject 24 Units subcutaneous at bedtime. 1 box 8 Active gabapentin (NEURONTIN) 300 mg capsule Take 300mg am and 600mg bedtime per Dr. Curry and patient 1 07/03/201 8 Active traMADoL (ULTRAM) 50 mg tablet take 1 tablet by mouth 3 times daily as needed for pain* 3 Active mesalamine (CANASA) 1,000 mg suppositoryIndicat ions:Chronic ulcerative proctitis without complications (HC) Insert 1 Suppository (1,000 mg) rectally at bedtime. 30 Suppository 11 3 Active mesalamine (LIALDA) 1.2 gram delayed-release tabletIndications: Chronic ulcerative proctitis without complications (HC) Take 4 Tablets (4.8 g) by mouth once daily with a meal. 120 Tablet 11 3 Active pregabalin (LYRICA) 75 mg capsuleIndications :Diabetic peripheral neuropathy (HC) Take 1 Capsule (75 mg) by mouth two times daily. 60 Capsule 2 4 Active Active Problems Problem Noted Date Diagnosed Date HTN (hypertension) 11/09/2017 Overview (11/09/2017): Per scanned report from PCP on 10-14-2017 Other hyperlipidemia 11/09/2017 Overview (11/09/2017): Scanned report from Dr. Curry 10-14-2017 Diabetic peripheral neuropathy 11/03/2017 Overview (11/03/2017): Patient sees Dr. Curry at [facility] Controlled type 2 diabetes m ellitus with complication, with long-term current use of insulin 11/03/2017 Primary osteoarthritis of left hip 05/21/2017 Social History Tobacco Use Types Packs/Day Years Used Date Smoking Tobacco: Former Cigarettes 1 10 0 09/21/1970 - 09/21/1980 Smokeless Tobacco: Never Tobacco Cessation:Counseling Given: No Alcohol Use Standard Drinks/Week Comments Yes 0 (1 standard drink = 0.6 oz pur e alcohol) ocassionally Social Connections Answer Date Recorded Frequency of Communication with Friends and Fami ly Not on file 06/19/2023 Sex and Gender Information Value Date Recorded Sex Assigned at Not on file Gender Identity Not on file Sexual Orientation Not on file Obstetrics History Last Filed Vital Signs Vital Sign Reading Time Taken Comments Blood Pressure 114/61 06/19/2023 2:04 PM CDT Pulse 84 06/19/2023 2:04 PM CDT Temperature 36.8 ??C (98.3 ??F) 05/22/2017 8:56 AM CD T Respiratory Rate - - Oxygen Saturation 95% 06/19/2023 2:04 PM CDT Inhaled Oxygen Concentration - - Weight 72.5 kg (159 lb 12.8 oz) 06/19/2023 2:04 PM CDT Height 167.6 cm (5' 6) 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 Body Mass Index 25.79 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 Plan of Treatment Health Maintenance Due Date Last Done Comments Pneumococcal series for age 65+ (1 of 2 - PCV) 1951 Tdap 1956 Depression screening for age 12+ 1957 Hepatitis C screening for ag e 18-05[birth year]09/1963 Tetanus booster 1965 Zoster (shingles) series for age 50+ (1 of 2) 1995 Medicare Wellness for age 65+ 2010 BMI (ht and wt on same day) for age 18+ 11/09/2018 11/09/2017, 04/10/2017, 04/08/2017 RSV vaccine for adults or (1 - 1-dose 75+ series) 2020 COVID-19 vaccine series (2023- season) 2024 07/03/2022, 08/13/2021, 12/04/2020, Additional history exists Influenza for age 65+ 05/22/2024 Care Teams Regional Vice President Surgical Sales Relationship Specialty Start Date End Date Luis Felipe Curry MD [address] [place] [address] PCP - General Emergency Medicine 11/14/16
== END 2024-07-26 15:42 | disposition home or self-care (01) ==
LOC: NFLDREF 15:42
PROVIDERS: PCP Internal Medicine; Visit Provider Internal Medicine
DX: I10 Essential (primary) hypertension (principal); E78.5 Hyperlipidemia, unspecified; E11.9 Type 2 diabetes mellitus without complications; E05.90 Thyrotoxicosis, unspecified without thyrotoxic crisis or storm; E11.40 Type 2 diabetes mellitus with diabetic neuropathy, unspecified; Z79.4 Long term (current) use of insulin; Z12.5 Encounter for screening for malignant neoplasm of prostate
CPT/HCPCS: 80053; 80061; 84439; 84443; G0103

== ENCOUNTER 2024-12-12 21:59 | Outpatient (CLI) | payer MEDICARE, BC, SELFPAY | END 2024-12-12 22:00 | disposition home or self-care (01) | LOC: AMB 12-14 12:13 | PROVIDERS: PCP Internal Medicine; Visit Provider Family Medicine | DX: R53.1 Weakness (principal); E11.65 Type 2 diabetes mellitus with hyperglycemia | CPT/HCPCS: A0425; A0427 ==

== ENCOUNTER 2024-12-12 22:29 | Observation (INO) | payer MEDICARE, BC, SELFPAY ==
[2024-12-12] VITALS (8 sets, daily range): BP systolic 151; BP diastolic 97; PULSE 84–88; RESP 16; TEMP 37.3; O2SAT 90–96
--- OUTSIDE RECORDS SUMMARY | 2024-12-12 22:32 | XMS_ITS | Clinical Summary ---
Author Organization [employer] 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 1 02/25/20 17 Active BD INSULIN PEN NEEDLE UF MINI 31 gauge x 3/16 As directed 1 Device 3 times daily. 1 01/08/20 17 Active multivitamin (MVI) tablet Take 1 tablet by mouth once daily. 0 04/10/20 17 Active aspirin (ECOTRIN) 81 mg enteric coated tablet Take 1 tablet by mouth once daily with a meal. 0 11/09/19 18 Active naproxen (NAPROSYN) 500 mg tablet Take 1 tablet by mouth 2 times daily with meals. 2 tablet 11/09/19 18 Active HUMALOG KWIKPEN INSULIN 100 unit/mL inpn pen 20 units subcutaneously daily patient states 3 mL 01/20/20 18 Active fish oil-omega-3 fatty acids (FISH OIL) 1,000-340 mg capsule Take 1 capsule by mouth once daily. 0 01/20/20 18 Active LANTUS SOLOSTAR U-100 INSULIN 100 unit/mL (3 mL) pen Inject 24 Units subcutaneous at bedtime. 1 box 03/23/20 18 Active gabapentin (NEURONTIN) 300 mg capsule Take 300mg am and 600mg bedtime per Dr. Curry and patient 1 03/23/20 18 Active traMADoL (ULTRAM) 50 mg tablet take 1 tablet by mouth 3 times daily as needed for pain* 02/25/20 23 Active mesalamine (CANASA) 1,000 mg suppositoryIndic ations:Chronic ulcerative proctitis without complications (HC) Insert 1 Suppository (1,000 mg) rectally at bedtime. 30 Suppository 11 06/19/20 23 Active mesalamine (LIALDA) 1.2 gram delayed-release tabletIndication s:Chronic ulcerative proctitis without complications (HC) Take 4 Tablets (4.8 g) by mouth once daily with a meal. 120 Tablet 11 06/19/20 23 Active pregabalin (LYRICA) 75 mg capsuleIndicatio ns:Diabetic peripheral neuropathy (HC) Take 1 Capsule (75 mg) by mouth two times daily. 60 Capsule 2 10/28/19 24 Active Active Problems Problem Noted Date Diagnosed Date HTN (hypertension) 11/09/2017 Overview (11/09/2017): Per scanned report from PCP on 10-14-2017 Other hyperlipidemia 11/09/2017 Overview (11/09/2017): Scanned report from Dr. Curry 10-14-2017 Diabetic peripheral neuropathy 11/03/2017 Overview (11/03/2017): Patient sees Dr. 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 Gender Identity Not on file Sexual Orientation Not on file Obstetrics History Last Filed Vital Signs Vital Sign Reading Time Taken Comments Blood Pressure 114/61 06/19/2023 2:04 PM CDT Pulse 84 06/19/2023 2:04 PM CDT Temperature 36.8 C (98.3 F) 05/22/2017 8:56 AM CDT Respiratory Rate - - Oxygen Saturation 95% 06/19/2023 2:04 PM CDT Inhaled Oxygen Concentration - - Weight 72.5 kg (159 lb 12.8 oz) 06/19/2023 2:04 PM CDT Height 167.6 cm (5' 6) 11/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 Body Mass Index 25.79 11/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 Plan of Treatment Health Maintenance Due Date Last Done Comments Tdap 1956 Depression screening for age 12+ 1957 Hepatitis C screening for ag e 18-05/09/1963 Pneumococcal series for age 50+ (1 of 2 - PCV) 1964 Tetanus booster 1965 Zoster (shingles) series for age 50+ (1 of 2) 1995 Medicare Wellness for age 65+ 2010 BMI (ht and wt on same day) for age 18+ 11/09/2018 11/09/2017, 04/10/2017, 04/08/2017 RSV vaccine for adults or (1 - 1-dose 75+ series) 2020 COVID-19 vaccine series (2023- season) 2024 07/03/2022, 08/13/2021, 12/04/2020, Additional history exists Influenza Vaccine (#1) 2024 Insurance BLUE CROSS QUINAULT BLUE MR PB ONLY Care Teams Social Worker Relationship Specialty Start Date End Date Luis Felipe Curry MD [address] [place] [id number] PCP - General Emergency Medicine 11/14/16
--- NOTE | 2024-12-12 22:40 | ED_ITS ---
HPI - General Adult General Chief complaint: Weakness Stated complaint: hyperglycemia Time Seen by Provider: 12/12/24 22:32 History of Present Illness HPI narrative: called ems as pt was too weak to get up off toilet. pt was able to walk with ems but ems states legs were weak. blood sugar 391 by ems, insulin this AM . hasnt been checking blood sugars very often per ems. ems states baseline confusion, states not new . pt denies CP or SOB. 79-year-old man presenting to the emergency department via EMS. Accompanied then by spouse. Information gathering is complicated by Lately increasing weakness, needing more assistance. Is declining cares and not treating himself or accepting help properly particular with regard insulin. Underlying confusion, dementia. It sounds like today was more irritable or disagreeable. Has had some cough lately. No noted fever. He has been more unsteady lately holding onto the edmond. Does have some degree of chronic diarrheal or loose stools. Spouse is cleaning these up frequently. No daily or regular weights. Spouse is feeling like she is having increasing difficulty caring for him. Home situation complicated also by adult daughter living with them with schizophrenia. Related Data Home Medications ?Medication ?Instructions ?Recorded ?Confirmed aspirin 81 mg tablet,delayed 81 mg PO DAILY 04/03/22 12/13/24 release magnesium 200 mg tablet 200 mg PO QDAY 04/03/22 12/13/24 metronidazole 0.75 % topical cream applic topical DAILY PRN 12/13/24 Previous Rx's ?Medication ?Instructions ?Recorded pen needle, diabetic 32 gauge x #100 ea 12/01/23 (BD Ultra-Fine Mayra Pen Needle) blood sugar diagnostic (Contour #200 ea 12/02/23 Next Test Strips) lancets (Microlet Lancet) #200 ea 12/02/23 memantine 5 mg tablet 5 mg PO QAM 90 days #90 tabs 09/09/24 amlodipine 10 mg-benazepril 20 mg 1 cap PO DAILY #90 caps 09/22/24 capsule pregabalin 50 mg capsule (Lyrica) 50 mg PO BID #60 caps 11/21/24 acetaminophen 650 mg 1,300 mg (2 x 650 mg) PO Q12H #60 12/14/24 tablet,extended release tabs cefuroxime axetil 500 mg tablet 500 mg PO BIDWM #13 tabs 12/14/24 insulin aspar prot-insulin aspart 30 unit (0.3 mL) subcut BIDWM #15 12/14/24 100 unit/mL (70-30) subcutaneous mL pen (Novolog Mix 70-30FlexPen U-100) methimazole 5 mg tablet 15 mg (3 x 5 mg) PO DAILY #30 tabs 12/14/24 sitagliptin phosphate 50 mg tablet 50 mg PO DAILY #30 tabs 12/14/24 (Januvia) Allergies Allergy/AdvReac Type Severity Reaction Status Date / Time No Known Drug Allergies Allergy Verified 10/03/24 13:39 Review of Systems Status of ROS: Reports: unobtainable due to mental status [facility] Medical History (Updated 12/14/24 @ 09:44 by Melody Plaza MD) Left bundle branch block (LBBB) ?I44.7 - Left bundle-branch block, unspecified (ICD-10) Hypertension (08/29/10) ?I10 - Essential (primary) hypertension (ICD-10) Hyperlipidemia (08/29/10) ?E78.5 - Hyperlipidemia, unspecified (ICD-10) Dementia ?F03.90 - Unspecified dementia without behavioral disturbance (ICD-10) Diabetic peripheral neuropathy ?E11.42 - Type 2 diabetes mellitus with diabetic polyneuropathy (ICD-10) Dupuytren's contracture of right hand ?M72.0 - Palmar fascial fibromatosis [Dupuytren] (ICD-10) Balanitis ?N48.1 - Balanitis (ICD-10) Adhesive capsulitis of shoulder (2009) ?M75.00 - Adhesive capsulitis of unspecified shoulder (ICD-10) Basal cell carcinoma (BCC) ?C44.91 - Basal cell carcinoma of skin, unspecified (ICD-10) Hyperthyroidism ?E05.90 - Thyrotoxicosis, unspecified without thyrotoxic crisis or storm (ICD-10) Mass of pancreas ?K86.89 - Other specified diseases of pancreas (ICD-10) Proctitis ?K62.89 - Other specified diseases of anus and rectum (ICD-10) Chronic pain ?G89.29 - Other chronic pain (ICD-10) Surgical History History of hemorrhoidectomy (~1965) ?Z98.890 - Other specified postprocedural states (ICD-10) History of shoulder surgery (09/04/10) ?Z98.890 - Other specified postprocedural states (ICD-10) 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) ?Z96.642 - Presence of left artificial hip joint (ICD-10) History of hernia repair (~1989) ?Z98.890 - Other specified postprocedural states (ICD-10) ?Z87.19 - Personal history of other diseases of the digestive system (ICD-10) Social History Narrative: Hx tobacco use What is your current living situation?: I presently have a place to live Problems where you live: no known problems Problems where you live details: na In the past 12 months, utilities in danger of being shut off: no In past 12 months, lack of transportation kept you from medical appts, meetings, work, or getting things needed for daily living: no In the past 12 mos, have been you worried that your food would run out before you had money to buy more?: never true In the past 12 mos, the food you bought just didn't last and you didn't have money to buy more?: never true Smoking Status: Former smoker How often do you have a drink containing alcohol: never AUDIT-C Alcohol total score: 0 Non-prescribed substance use: denies use Caffeine: No How often does anyone, including family, friends and others, physically hurt you : never How often does anyone, including family, friends and others, insult or talk down to you: never How often does anyone, including family, friends and others, threaten you with harm: never How often does anyone, including family, friends and others, scream or curse at you: never Exam Narrative: Exam Narrative: Very agreeable, pleasant. Might be little hard of hearing. Not really able to answer questions beyond an immediate yes or no perhaps. Oropharynx is a little sticky. Does have strength to sit up. Able to raise both legs from the bed without difficulty. Lungs appear to be clear though hard to coordinate the auscultation here. Heart in regular rate rhythm. Has select ectasias over his chest which apparently are chronic. Abdomen is soft and nontender. Trace pretibial pitting edema right greater than left. Well-perfused peripherally. Contracted right 5th finger. When I am reexamining him though oxygen level seems to be persistently around 91-92% which is decreased from baseline. On triage was 96%. Is not labored in his breathing. Does not appear to be in distress. No cough. With urine collection noted to have some redness around the glans and noted to be tender. Some exudative material as well. I do return to examine this confirming. Did not appear to be tender though at this time. Const: Vital Signs, click to edit/add: Vital Signs - 24 hr 12/12/24 22:37 12/12/24 23:39 Temperature 99.1 F Pulse Rate [Pulse Oximeter] 87 Respiratory Rate 16 Blood Pressure [Ri ght Upper Arm] 151/97 H Pulse Oximetry 96 93 Oxygen Delivery Me thod Room Air Documenting provider has reviewed patient's vital signs: yes Course Vital Signs Vital signs: Initial Vital Signs Temperature 99.1 F 12/12/24 22:37 Temperature Source Temporal Artery Scan 12/12/24 22:37 Pulse Rate 87 12/12/24 22:37 Respiratory Rate 16 12/12/24 22:37 Blood Pressure 151/97 H 12/12/24 22:37 Blood Pressure Mean 115 H 12/12/24 22:37 Blood Pressure Position Sitting 12/12/24 22:37 Pulse Oximetry 96 12/12/24 22:37 Oxygen Delivery Method Room Air 12/12/24 22:37 Vital Signs Temperature 99.1 F 12/12/24 22:37 Pulse Rate 87 12/12/24 22:37 Respiratory Rate 16 12/12/24 22:37 Blood Pressure 151/97 H 12/12/24 22:37 Pulse Oximetry 96 12/12/24 22:37 Oxygen Delivery Method Room Air 12/12/24 22:37 Temperature 97.7 F 12/14/24 07:00 Pulse Rate 82 12/14/24 07:43 Respiratory Rate 18 12/14/24 07:00 Blood Pressure 105/73 12/14/24 07:00 Pulse Oximetry 100 12/14/24 07:00 Oxygen Delivery Method Room Air 12/14/24 07:00 Medications Administered Medications: Discontinued Medications Generic Name Dose Route Start Last Admin Trade Name Freq PRN Reason Stop Dose Admin Amlodipine Besylate 10 mg 12/13/24 09:00 12/14/24 09:00 Amlodipine 10 Mg Tablet PO 10 mg DAILY VANDANA Administration Aspirin 81 mg 12/13/24 09:00 12/14/24 09:00 Aspirin 81 Mg Tablet Ec PO 81 mg DAILY VANDANA Administration Benazepril HCl 20 mg 12/13/24 09:00 12/14/24 08:59 Benazepril 10 Mg Tablet PO 20 mg DAILY VANDANA Administration Cefuroxime Axetil 500 mg 12/14/24 08:25 12/14/24 09:00 Cefuroxime Axetil 500 Mg Tablet PO 500 mg BIDWM [facility] Administration Enoxaparin Sodium 40 mg 12/13/24 21:00 12/13/24 20:27 Enoxaparin 40 Mg/0.4 Ml Inj SUBCUT 40 mg HS [facility] Administration Gabapentin 600 mg 12/13/24 09:00 12/14/24 07:24 Gabapentin 300 Mg Capsule PO Not Given BID VANDANA Hydrochlorothiazide 25 mg 12/13/24 09:00 12/14/24 07:24 Hydrochlorothiazide 25 Mg Tablet PO Not Given QAM [facility] Sodium Chloride 1,000 mls @ 1,000 mls/hr 12/12/24 22:48 12/13/24 01:27 0.9 % Sodium Chloride 1000 Ml IV 12/12/24 23:47 Infused .Q1H ONE Infusion Insulin Aspart 15 unit 12/13/24 09:30 12/13/24 20:29 Insulin Prot/Asp (Novolog 70/30) 100 Unit/Ml SUBCUT 15 unit BID [facility] Administration Insulin Aspart 0 unit 12/13/24 11:30 12/13/24 20:28 Insulin Aspart 100 Unit/Ml SUBCUT 5 unit ACHS [facility] Administration Protocol Insulin Aspart 30 unit 12/14/24 08:00 12/14/24 09:02 Insulin Prot/Asp (Novolog 70/30) 100 Unit/Ml SUBCUT 30 unit BIDWM [facility] Administration Insulin Aspart 0 unit 12/14/24 02:00 12/14/24 09:02 Insulin Aspart 100 Unit/Ml SUBCUT 4 unit 02,08,12,18,21 [facility] Administration Protocol Insulin Aspart 10 unit 12/13/24 21:22 12/13/24 21:48 Insulin Aspart 100 Unit/Ml SUBCUT 12/13/24 21:23 10 unit ONCE ONE Administration Insulin Glargine 25 unit 12/13/24 09:00 12/14/24 07:24 Insulin Glargine,Hum.Rec.Anlog 100 Unit/Ml Insuln.Pen SUBCUT Not Given BID [facility] Insulin Glargine 20 unit 12/13/24 09:00 12/14/24 07:25 Insulin Glargine,Hum.Rec.Anlog 100 Unit/Ml Insuln.Pen SUBCUT Not Given BID [facility] Insulin Human Regular 12 unit 12/13/24 01:16 12/13/24 01:26 Insulin Regular, Human 100 Unit/Ml Vial SUBCUT 12/13/24 01:17 12 unit ONCE ONE Administration Magnesium Oxide 200 mg 12/13/24 06:58 12/14/24 09:00 Magnesium Oxide 400 Mg Tablet PO 200 mg DAILY VANDANA Administration Memantine 5 mg 12/13/24 09:00 12/14/24 09:01 Memantine Hcl 10 Mg Tablet PO 5 mg QAM VANDANA Administration Methimazole 15 mg 12/13/24 12:45 12/14/24 09:01 Methimazole 5 Mg Tablet PO 15 mg DAILY VANDANA Administration Wilson 1-Xbn-Csu-Fish 1 cap 12/13/24 03:00 12/14/24 09:01 Oil [Fish Oil] 300- PO Not Given 1,000 Mg Capsule) DAILY VANDANA Pregabalin 50 mg 12/13/24 09:00 12/14/24 07:25 Pregabalin 50 Mg Capsule PO Not Given BID VANDANA Sodium Chloride 5 ml 12/13/24 09:00 12/14/24 09:01 Sodium Chloride 0.9 % (Flush) 10 Ml Syringe IVF 5 ml BID VANDANA Administration Medical Decision Making MDM Narrative Medical decision making narrative: Following IV hydration here in the emergency department does seem to be doing better. Ambulating all right with a walker. Oxygenating about 94% on room air. Had anticipated potential discharge but on further conversation spouse expressing more concerns of ability to care for Alex at home. Troponin well a little elevated at 0.07 is flat on repeat. This in the setting of elevated BNP Labs are generally reassuring though urine with protein glucose ketones and blood. Not necessarily surprising. No leukocyte esterase or nitrite to suggest infection otherwise. Chest x-ray by my independent review shows some interstitial congestion. Radiology over-read below Indication: Hypoxia Technique: Two views of the chest Comparison: Chest radiograph performed 09/29/2022 Findings/Impression: Prominent interstitial markings, could represent an atypical/viral pneumonia or COPD exacerbation. No organized consolidation appreciated. Dictated by Juan M Centeno MD @ 12/12/2024 11:33:22 PM On reinterview I do continue to have some difficulty in clarifying concerns but I think would be benefited from admission to establish need for home cares. Also may be demonstrating some delirium. Did receive 12 units of regular insulin here in the emergency department. Discuss this case with hospitalist for admission. Medical Records Medical records reviewed: Yes I reviewed the patient's medical records Lab Data Lab results reviewed: Yes I reviewed the patient's lab results Labs: Lab Results 12/12/24 12/12/24 12/12/24 Range/Units 22:40 22:52 23:10 WBC 10.14 (4.50-11.00) K/uL RBC 4.46 (4.30-5.90) m/uL Hgb 14.2 (13.5-17.5) gm/dL Hct 40.3 (37.0-53.0) % MCV 90 (80-100) fL MCH 32 (26-34) pg MCHC 35 (32-36) gm/dL RDW Coeff of John 12.6 (11.5-15.5) % Plt Count 137 L (140-440) K/uL Neut % (Auto) 90.2 H (42.0-72.0) % Lymph % (Auto) 3.6 L (20-44) % [place] % (Auto) 4.4 (0.0-11.0) % Eos % (Auto) 0.0 (0.0-7.0) % Baso % (Auto) 0.2 (0.0-3.0) % Neut # (Auto) 9.10 H (1.7-7.0) K/uL Lymph # (Auto) 0.40 L (0.90-2.90) K/uL [place] # (Auto) 0.40 (0.00-0.90) K/UL Eos # (Auto) 0.00 (0.00-0.50) K/uL Baso # (Auto) 0.02 (0.00-0.30) K/uL Abs Immat Gran (auto) 0.16 (0.00-0.30) K/uL Imm/Tot Granulo (auto) 1.6 % INR 1.04 (0.91-1.10) APTT 29 (23-33) Seconds VBG pH 7.412 (7.32-7.43) VBG pCO2 42 (40-50) mmHG VBG pO2 41.9 (25-47) mmHG VBG HCO3 27 (21-28) mmol/L Sodium 135 (135-149) mmol/L Potassium 3.6 (3.6-5.1) mmol/L Chloride 100 (96-114) mmol/L Carbon Dioxide 26 (20-32) mmol/L Anion Gap 9 (7-15) mEq/L BUN 18 (7-30) mg/dL Creatinine 0.9 (0.5-1.5) mg/dL Estimated GFR 87 ml/min Glucose 359 H* (60-115) mg/dL Hemoglobin A1c 9.9 H (0-5.6) % Lactate 1.7 (0.5-1.9) mmol/L Calcium 8.7 (8.4-10.6) mg/dL Magnesium 1.7 (1.5-2.6) mg/dL Total Bilirubin 0.8 (0.1-1.5) mg/dL Direct Bilirubin 0.2 (0.0-0.5) mg/dL AST 32 (12-35) U/L ALT 17 (4-50) U/L Alkaline Phosphatase 89 (40-150) U/L Troponin I 0.07 H* (0.01-0.04) ng/mL C-Reactive Protein 1.6 H (0.5-1.0) mg/dL NT-Pro-B Natriuret Pep 2010 pg/mL Total Protein 6.5 (6.0-8.3) g/dL Albumin 3.9 (3.3-5.0) g/dL Lipase 12 L (23-300) U/L TSH < 0.015 L (0.270-4.20) uIU/mL Free T4 1.99 H (0.70-1.85) ng/dL Free T3 pg/dL 3.8 (2.5-4.3) pg/mL Urine Color (Yellow) Urine Appearance (Clear) Urine pH (5.0-8.5) Ur Specific [place] (1.000-1.030) Urine Protein (Negative) Urine Glucose (UA) (Negative) Urine Ketones (Negative) Urine Blood (Negative) Urine Nitrite (Negative) Urine Bilirubin (Negative) Urine Urobilinogen (0.2-1.0) Ur Leukocyte Esterase (Negative) Urine RBC (0-2) Urine WBC (0-5) Ur Squamous Epith Cells (None-Few) Amorphous Sediment (None) Urine Bacteria (None) Hyaline Casts (None-Few) Urine Mucus (None) Thyroid Perox (Armstrong) <0.3 (0.0-9.0) IU/mL SARS-CoV-2 (PCR) Negative SARS-CoV-2 (Negative) Influenza Type A (PCR) Negative PCR FLU A (Negative) Influenza Type B (PCR) Negative PCR FLU B (Negative) RSV (PCR) Negative PCR RSV (Negative) POC Glucose 378 H* (60-115) mg/dl 12/12/24 12/13/24 Range/Units 23:45 01:05 WBC (4.50-11.00) K/uL RBC (4.30-5.90) m/uL Hgb (13.5-17.5) gm/dL Hct (37.0-53.0) % MCV (80-100) fL MCH (26-34) pg MCHC (32-36) gm/dL RDW Coeff of John (11.5-15.5) % Plt Count (140-440) K/uL Neut % (Auto) (42.0-72.0) % Lymph % (Auto) (20-44) % [place] % (Auto) (0.0-11.0) % Eos % (Auto) (0.0-7.0) % Baso % (Auto) (0.0-3.0) % Neut # (Auto) (1.7-7.0) K/uL Lymph # (Auto) (0.90-2.90) K/uL [place] # (Auto) (0.00-0.90) K/UL Eos # (Auto) (0.00-0.50) K/uL Baso # (Auto) (0.00-0.30) K/uL Abs Immat Gran (auto) (0.00-0.30) K/uL Imm/Tot Granulo (auto) % INR (0.91-1.10) APTT (23-33) Seconds VBG pH (7.32-7.43) VBG pCO2 (40-50) mmHG VBG pO2 (25-47) mmHG VBG HCO3 (21-28) mmol/L Sodium (135-149) mmol/L Potassium (3.6-5.1) mmol/L Chloride (96-114) mmol/L Carbon Dioxide (20-32) mmol/L Anion Gap (7-15) mEq/L BUN (7-30) mg/dL Creatinine (0.5-1.5) mg/dL Estimated GFR ml/min Glucose (60-115) mg/dL Hemoglobin A1c (0-5.6) % Lactate (0.5-1.9) mmol/L Calcium (8.4-10.6) mg/dL Magnesium (1.5-2.6) mg/dL Total Bilirubin (0.1-1.5) mg/dL Direct Bilirubin (0.0-0.5) mg/dL AST (12-35) U/L ALT (4-50) U/L Alkaline Phosphatase (40-150) U/L Troponin I 0.07 H* (0.01-0.04) ng/mL C-Reactive Protein (0.5-1.0) mg/dL NT-Pro-B Natriuret Pep pg/mL Total Protein (6.0-8.3) g/dL Albumin (3.3-5.0) g/dL Lipase (23-300) U/L TSH (0.270-4.20) uIU/mL Free T4 (0.70-1.85) ng/dL Free T3 pg/dL (2.5-4.3) pg/mL Urine Color Yellow (Yellow) Urine Appearance Clear (Clear) Urine pH 5.5 (5.0-8.5) Ur Specific [place] 1.020 (1.000-1.030) Urine Protein 1+ A (Negative) Urine Glucose (UA) 2+ A (Negative) Urine Ketones 1+ A (Negative) Urine Blood 3+ A (Negative) Urine Nitrite Negative (Negative) Urine Bilirubin Negative (Negative) Urine Urobilinogen 0.2 (0.2-1.0) Ur Leukocyte Esterase Negative (Negative) Urine RBC 0-2 (0-2) Urine WBC 0-2 (0-5) Ur Squamous Epith Cells Few (None-Few) Amorphous Sediment Few A (None) Urine Bacteria Few A (None) Hyaline Casts Few (None-Few) Urine Mucus Few A (None) Thyroid Perox (Armstrong) (0.0-9.0) IU/mL SARS-CoV-2 (PCR) (Negative) Influenza Type A (PCR) (Negative) Influenza Type B (PCR) (Negative) RSV (PCR) (Negative) POC Glucose (60-115) mg/dl Discharge Plan Discharge Clinical Impression: Weakness, Balanitis, Hyperglycemia Patient Disposition: Admitted As Observation Condition: Improved Activity Level: Activity as Tolerated Discharge Diet: Diabetic
[2024-12-12 22:41] LABS: Glucose, Point-of-Care* 378 mg/dl (60-115)
--- NOTE | 2024-12-12 22:48 | CRLHL7_ITS ---
For Patients: As a result of the Cures Act, medical imaging exams and procedure reports are released immediately into your electronic medical record. You may view this report before your referring provider. If you have questions, please contact your health care provider. Indication: Hypoxia Technique: Two views of the chest Comparison: Chest radiograph performed 09/29/2022 Findings/Impression: Prominent interstitial markings, could represent an atypical/viral pneumonia or COPD exacerbation. No organized consolidation appreciated. Dictated by Juan M Centeno MD @ 12/12/2024 11:33:22 PM (Electronically Signed)
[2024-12-12] MEDS: 0.9 % SODIUM CHLORIDE 1000 ml 1,000 ML IV (23:09)
[2024-12-12 23:27] LABS: HCO3 VBG 27 mmol/L (21-28); Lactate* 1.7 mmol/L (0.5-1.9); PCO2 VBG 42 mmHG (40-50); PO2 VBG 41.9 mmHG (25-47); pH VBG 7.412 (7.32-7.43)
[2024-12-12 23:28] LABS: Basophils Absolute Auto 0.02 K/uL (0.00-0.30); Basophils Percent Auto 0.2 % (0.0-3.0); Hematocrit 40.3 % (37.0-53.0); Hemoglobin* 14.2 gm/dL (13.5-17.5); Immature Granulocytes Abs Auto 0.16 K/uL (0.00-0.30); Immature Granulocytes Pct Auto 1.6 %; Lymphocytes Percent Auto 3.6 % (20-44); Mean Corpuscular HGB Conc 35 gm/dL (32-36); Mean Corpuscular Hemoglobin 32 pg (26-34); Mean Corpuscular Volume 90 fL (80-100); Monocytes Percent Auto 4.4 % (0.0-11.0); Neutrophils Percent Auto 90.2 % (42.0-72.0); Platelet Count* 137 K/uL (140-440); RDW Coefficient of Variation % 12.6 % (11.5-15.5); Red Blood Count 4.46 m/uL (4.30-5.90); White Blood Count* 10.14 K/uL (4.50-11.00)
[2024-12-12 23:31] LABS: Slide Review Reflex No
[2024-12-12 23:37] LABS: PCR FLU A Negative PCR FLU A (Negative); PCR FLU B Negative PCR FLU B (Negative); PCR RSV Negative PCR RSV (Negative); SARS PCR* Negative SARS-CoV-2 (Negative)
--- OUTSIDE RECORDS SUMMARY | 2024-12-12 23:37 | XMS_ITS | Clinical Summary ---
Author Organization [facility] Address [address] [place] [id number] Care Team Providers Care Antenna Rigger Name Role Phone Luis Felipe Curry MD [...] Overview (11/03/2017): Patient sees Dr. 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
[2024-12-12 23:45] LABS: Albumin* 3.9 g/dL (3.3-5.0); Chloride* 100 mmol/L (96-114); Potassium* 3.6 mmol/L (3.6-5.1); Sodium* 135 mmol/L (135-149)
[2024-12-12 23:48] LABS: Alanine Aminotransferase* 17 U/L (4-50); Alkaline Phosphatase* 89 U/L (40-150); Anion Gap 9 mEq/L (7-15); Aspartate Amino Transferase* 32 U/L (12-35); Bilirubin Direct* 0.2 mg/dL (0.0-0.5); Bilirubin Total* 0.8 mg/dL (0.1-1.5); Blood Urea Nitrogen* 18 mg/dL (7-30); Calcium* 8.7 mg/dL (8.4-10.6); Carbon Dioxide* 26 mmol/L (20-32); Creatinine* 0.9 mg/dL (0.5-1.5); Estimated Glomerular Filt Rate 87 ml/min; Lipase* 12 U/L (23-300); Total Protein* 6.5 g/dL (6.0-8.3)
[2024-12-12 23:51] LABS: C Reactive Protein* 1.6 mg/dL (0.5-1.0)
[2024-12-12 23:51] LABS: Appearance Urine Clear (Clear); Bilirubin Urine Negative (Negative); Blood Urine 3+ (Negative); Color Urine Yellow (Yellow); Glucose Urine 2+ (Negative); Ketones Urine 1+ (Negative); Leukocyte Esterase Urine Negative (Negative); Nitrite Urine Negative (Negative); Protein Urine 1+ (Negative); Urobilinogen Urine 0.2 (0.2-1.0); pH Urine 5.5 (5.0-8.5)
[2024-12-12 23:52] LABS: INR 1.04 (0.91-1.10); Partial Thromboplastin Time* 29 Seconds (23-33); Prothrombin Time 14.4 Seconds
[2024-12-12 23:59] LABS: Amorphous Sediment Urine Few; Bacteria Urine Few; Hyaline Casts Urine Few (None-Few); Mucus Urine Few; RBC Urine 0-2 (0-2); Squamous Epithelial Cell Urine Few (None-Few); WBC Urine 0-2 (0-5)
[2024-12-13] VITALS (17 sets, daily range): BP systolic 137–164; BP diastolic 66–91; PULSE 62–97; RESP 16–18; TEMP 36.4–37; O2SAT 90–99; BMI 24.4
[2024-12-13 00:20] LABS: Glucose* 359 mg/dL (60-115)
[2024-12-13 00:21] LABS: NT Pro B Type NatriureticPept* 2010 pg/mL; Troponin I* 0.07 ng/mL (0.01-0.04)
[2024-12-13] MEDS: INSULIN REGULAR, HUMAN 100 UNIT/ML VIAL 12 UNIT SUBCUT (01:26)
[2024-12-13 01:47] LABS: Troponin I* 0.07 ng/mL (0.01-0.04)
--- NOTE | 2024-12-13 04:06 | W.PM.TELEH&P ---
Telehealth- H&P: HPI History of Present Illness Date Seen: 12/13/24 Chief complaint: hyperglycemia Narrative: Alex Olivas is seen as an Interactive Telehealth visit. Alex Olivas is a 79-year-old with history of dementia hypothyroidism and type 2 diabetes who presents to hospital with weakness. Patient was brought into the emergency room after he experienced weakness. Apparently patient was too weak to get up off the toilet. He was noted to be hyperglycemic. EMS arrived at the scene but interestingly was able to walk with EMS into the ambulance. He was then brought to the emergency room. At the emergency room he was noted to be confused which is his baseline. His presented to the emergency room with the patient. He denied any nausea vomiting or diarrhea. He denies any shortness of breath or chest pain. He denied any headache or lightheadedness. Overall the patient clinically appears to be medically stable. He even was able to ambulate throughout the room. However the patient's did not feel comfortable taking him home given a complicated situation with their adult living daughter who has schizophrenia at home. Due to unsafe discharge, the patient was admitted to the hospital. Patient's vital signs in the ER were stable. Patient's labs appear to be stable. He had a minimally elevated troponin but the patient denied any chest pain. ER provider initially tried to discharge the patient however the patient's was not willing to take home. Review of Systems Status of ROS: Reports: 10 or more systems reviewed and unremarkable except as noted in History and below [facility] Medical History Balanitis ?N48.1 - Balanitis (ICD-10) Adhesive capsulitis of shoulder (2009) ?M75.00 - Adhesive capsulitis of unspecified shoulder (ICD-10) Basal cell carcinoma (BCC) ?C44.91 - Basal cell carcinoma of skin, unspecified (ICD-10) Rash ?R21 - Rash and other nonspecific skin eruption (ICD-10) Hyperthyroidism ?E05.90 - Thyrotoxicosis, unspecified without thyrotoxic crisis or storm (ICD-10) Mass of pancreas ?K86.89 - Other specified diseases of pancreas (ICD-10) Proctitis ?K62.89 - Other specified diseases of anus and rectum (ICD-10) Rectal bleeding ?K62.5 - Hemorrhage of anus and rectum (ICD-10) Chronic pain ?G89.29 - Other chronic pain (ICD-10) Surgical History History of hemorrhoidectomy (~1964) ?Z98.890 - Other specified postprocedural states (ICD-10) History of shoulder surgery (09/04/10) ?Z98.890 - Other specified postprocedural states (ICD-10) 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) ?Z96.642 - Presence of left artificial hip joint (ICD-10) History of hernia repair (~1989) ?Z98.890 - Other specified postprocedural states (ICD-10) ?Z87.19 - Personal history of other diseases of the digestive system (ICD-10) Social History Narrative: Hx tobacco use What is your current living situation?: I presently have a place to live Problems where you live: no known problems Problems where you live details: na In the past 12 months, utilities in danger of being shut off: no In past 12 months, lack of transportation kept you from medical appts, meetings, work, or getting things needed for daily living: no In the past 12 mos, have been you worried that your food would run out before you had money to buy more?: never true In the past 12 mos, the food you bought just didn't last and you didn't have money to buy more?: never true Smoking Status: Former smoker How often do you have a drink containing alcohol: never AUDIT-C Alcohol total score: 0 Non-prescribed substance use: denies use Caffeine: No How often does anyone, including family, friends and others, physically hurt you: never How often does anyone, including family, friends and others, insult or talk down to you: never How often does anyone, including family, friends and others, threaten you with harm: never How often does anyone, including family, friends and others, scream or curse at you: never Meds Home Medications and Allergies Home Medications ?Medication ?Instructions ?Recorded ?Confirmed ?Type aspirin 81 mg tablet,delayed mg PO DAILY 04/03/22 10/03/24 History release magnesium 200 mg tablet 200 mg PO QDAY 04/03/22 10/03/24 History multivitamin 1 tab PO QAM 04/03/22 10/03/24 History omega 8-uvx-ixv-fish oil 300 1 cap PO QDAY 04/03/22 10/03/24 History mg-1,000 mg capsule (Fish Oil) Allergies Allergy/AdvReac Type Severity Reaction Status Date / Time No Known Drug Allergies Allergy Verified 10/03/24 13:39 Exam Narrative Exam Narrative: Physical Exam GENERAL: ?vital signs reviewed, well developed and nourished, in no distress HEENT: pupils are equal round and reactive to light, extraocular movements are grossly within normal limits and oral mucosa is moist. NECK: Supple without lymphadenopathy or thyromegaly according to nursing staff examination observation HEART: Regular rate and rhythm without any rubs, murmurs, or gallops. LUNGS: Clear to auscultation bilaterally with good air movement throughout ABDOMEN: Observation from nurse assisted exam, abdomen appears soft, nontender, and nondistended with Positive bowel sounds noted. EXTREMITIES: Strength and sensation is observed to be grossly within normal limits in the upper and lower extremities.? No focal strength deficit is observed. SKIN:? Observed warm and dry with color normal Const Vital Signs, click to edit/add: Vital Signs - 24 hr 12/12/24 22:37 12/12/24 22:39 12/12/24 22:45 Temperature 99.1 F Pulse Rate 87 87 Pulse Rate [Pulse Oximeter] 87 Respiratory Rate 16 Blood Pressure Blood Pressure [Left Arm] Blood Pressure [Right Upper Arm] 151/97 H Pulse Oximetry 96 92 91 Oxygen Delivery Method Room Air 12/12/24 23:04 12/12/24 23:15 12/12/24 23:30 Temperature Pulse Rate 88 86 84 Pulse Rate [Pulse Oximeter] Respiratory Rate Blood Pressure Blood Pressure [Left Arm] Blood Pressure [Right Upper Arm] Pulse Oximetry 91 90 91 Oxygen Delivery Method 12/12/24 23:39 12/12/24 23:48 12/13/24 00:00 Temperature Pulse Rate 84 81 Pulse Rate [Pulse Oximeter] Respiratory Rate Blood Pressure Blood Pressure [Left Arm] Blood Pressure [Right Upper Arm] Pulse Oximetry 93 90 91 Oxygen Delivery Method 12/13/24 00:15 12/13/24 00:24 12/13/24 00:30 Temperature Pulse Rate 88 80 80 Pulse Rate [Pulse Oximeter] Respiratory Rate Blood Pressure 158/82 H Blood Pressure [Left Arm] Blood Pressure [Right Upper Arm] Pulse Oximetry 91 94 90 Oxygen Delivery Method 12/13/24 00:54 12/13/24 00:55 12/13/24 01:00 Temperature Pulse Rate 87 76 82 Pulse Rate [Pulse Oximeter] Respiratory Rate 16 Blood Pressure 150/74 H Blood Pressure [Left Arm] Blood Pressure [Right Upper Arm] Pulse Oximetry 92 94 93 Oxygen Delivery Method 12/13/24 01:15 12/13/24 01:32 12/13/24 01:45 Temperature Pulse Rate 76 91 92 Pulse Rate [Pulse Oximeter] Respiratory Rate Blood Pressure Blood Pressure [Left Arm] Blood Pressure [Right Upper Arm] Pulse Oximetry 92 95 92 Oxygen Delivery Method 12/13/24 02:23 12/13/24 02:23 Temperature 98.6 F Pulse Rate Pulse Rate [Pulse Oximeter] 80 Respiratory Rate 16 16 Blood Pressure Blood Pressure [Left Arm] 145/87 H Blood Pressure [Right Upper Arm] Pulse Oximetry 97 92 Oxygen Delivery Method Room Air Room Air Hospitalist - H&P: Result Labs Labs: Short CBC 12/12/24 Range/Units 23:10 WBC 10.14 (4.50-11.00) K/uL Hgb 14.2 (13.5-17.5) gm/dL Hct 40.3 (37.0-53.0) % Plt Count 137 L (140-440) K/uL BMP 12/12/24 23:10 Sodium 135 Potassium 3.6 Chloride 100 Carbon Dioxide 26 BUN 18 Creatinine 0.9 Glucose 359 H* Calcium 8.7 Cardiac Enzymes 12/12/24 12/13/24 Range/Units 23:10 01:05 Troponin I 0.07 H* 0.07 H* (0.01-0.04) ng/mL Liver Function 12/12/24 Range/Units 23:10 Total Bilirubin 0.8 (0.1-1.5) mg/dL Direct Bilirubin 0.2 (0.0-0.5) mg/dL AST 32 (12-35) U/L ALT 17 (4-50) U/L Alkaline Phosphatase 89 (40-150) U/L Albumin 3.9 (3.3-5.0) g/dL Urine 12/12/24 Range/Units 23:45 Urine Color Yellow (Yellow) Urine Appearance Clear (Clear) Urine pH 5.5 (5.0-8.5) Ur Specific [place] 1.020 (1.000-1.030) Urine Protein 1+ A (Negative) Urine Glucose (UA) 2+ A (Negative) Assessment and Plan Assessment and plan (1) Hyperglycemia: Status: Acute (2) Weakness: Status: Acute (3) Hypertension: Status: Acute (4) Hyperlipidemia: Status: Acute (5) Dementia: Status: Acute (6) Diabetes mellitus, type II: Status: Acute Plan Overall this patient appears to be medically stable and medically stable. From a hyperglycemia standpoint, the patient was restarted his insulin. He takes Lantus twice a day with NovoLog with meals. I have ordered that with [id number] checks. Apparently the patient's elevated blood sugars are related to him refusing insulin periodically. Weakness: Although the patient was ambulating well in the ER, I have requested physical therapy to assess the patient. Dementia: At baseline this patient does not speak Mongolian. His interview was very limited. However he is very confused at baseline, pleasant however. Full code: I am unable to get a hold of the patient's to address CODE STATUS. I would defer to full code at this time. Telehealth Visit: Todays History and Physical is via interactive telehealth by Dr Jasson Mills MD The Patient is located [facility] physician is located at [facility]. Nursing staff assisted in the patient's exam. The visit being done today meets criteria for a telehealth visit and the patient or patient's parent/guardian is aware the visit is a telehealth visit. Camera Start time 230 Camera End time 300 Telehealth: Statement Statement Telehealth Visit: Today's History and Physical is provided via interactive telehealth by Jasson Mills MD.? Patient is located at [facility].? Provider is located at [facility].? Nursing staff assisted with the patient's exam. The visit being done today meets criteria for a telehealth visit and the patient or patient?s parent/guardian is aware the visit is a telehealth visit.
--- NOTE | 2024-12-13 06:31 | PC.NURSE ---
pt arrived to floow approx 0230, pleasantly confused, oriented to person only, which is baseline for patient. SBA to BR, incontinent of urine, tolerating activity. afebrile, denies pain.
[2024-12-13 08:48] LABS: Hemoglobin A1C* 9.9 % (0-5.6)
--- NOTE | 2024-12-13 09:03 | P.IMPN_ITS ---
Assessment and Plan Assessment and plan (1) Acute delirium: Problem comment: -apparently there was an episode late 12/12 where he locked the bathroom door and then became confused and unable to rise from the toilet and open the door. EMS was able to open the door and cue and help him to stand and he walked to the ambulance. Status: Acute (2) Dementia: Problem comment: mod-severe Status: Acute (3) Poorly controlled diabetes mellitus: Problem comment: A1C 9.9 noncompliance with diet and medications Status: Acute (4) Weakness: Status: Acute (5) Hypertension: Status: Acute (6) Hyperthyroidism: Problem comment: -c/w hx of Graves - starting methimazole 15mg daily. This wasn't previously treated; based on what I can find in clinic notes. --updating TSH -from 06/13 - 08/14 his TSH has been undetectable. -uptake exam (07/13) -Abnormal 24 uptake is identified at 34 percent. -The thyroid is prominent. There is heterogeneous activity with relative increased activity in the medial left thyroid. There is no significant suppression of uptake of the remaining thyroid. U/S in 07/13 Enlarged and heterogeneous thyroid with increased vascularity. No thyroid nodule. Status: Acute (7) Hyperlipidemia: Problem comment: -last checked in 08/14 -not on medication Status: Acute (8) Diabetic peripheral neuropathy: Problem comment: -lyrica most recently at 50mg BID - on hold. we will assess his pain with staff (MD/OT/PT) and keep this med off list if not needed. Status: Acute Subjective Date Seen: 12/13/24 Interval history: Daily Progress Note - Hospital Medicine Day #: 1 (admitted by tele-hospitalist early this morning) CC: confusion at home 24 HOUR UPDATE: Late last night patient was at home and went to the bathroom; he typically leaves door open but for some reason this time he went into the bathroom and locked the door. His notes after 2.5 hours of speaking to him thru the door she finally called ED. She didn't think he was injured just confused and weak. His dementia has been progressive for the last few years. Notable Labs, Micro, Rads, Interventions: hyperglycemic; A1C 9.9 hyperthyroidism (suppressed TSH, elevated free T4) UA troponin is mildly elevated but flat. ECG ordered, Echo from 2022 reviewed. BNP (no baseline) elevated at 2009. CXR showed prominent interstitial markings. Objective: mildly disheveled. Vitals: see above Lungs: Clear. Cardiac: S1S2. Neuro: no gross deficits or asymmetry. He is orientated to person (first name) only. Thinks he is in a clinic and otherwise doesn't know year, location (city or state). Disposition/Potential discharge - Today I spent 50minutes seeing the patient, reviewing Expanse and EPIC notes/diagnostics, discussing the care plan with our care time that includes social work, PT/OT, pharmacy, RT, care home and documenting my impressions and plan in the medical record. Prolonged Physician Services [id number] ([facility]) in conjunction with: 90910 (subsequent visit; 50 mins + 15 mins prolonged services = 65 mins total) I then went back for 15 mins to discuss the findings of ..... Alcohol 79187 >30 mins. We went over all the stigmata of alcoholism I see in this patient. I discussed the effects of chronic alcohol on the brain, liver, and heart. I recommended complete abstinence from alcohol and instructed on programs available at discharge from acute care. Smoking/Tobacco 69139 >10 mins. I went over the clinical stigmata of chronic tobacco use on the body. I explained the effect on the vasculature, lungs, heart, skin. I recommended complete abstinence from tobacco products and instructed on programs available at discharge from acute care. ACP first 30 mins 90031 I went over options for care during this current hospitalization and explained the difference between palliative care and hospice care. I described the likelihood of returning to previous functioning and what the options are going forward for care. Exam Const: Vital Signs, click to edit/add: Vital Signs - 24 hr 12/12/24 22:37 12/12/24 22:39 12/12/24 22:45 Temperature 99.1 F Pulse Rate 87 87 Pulse Rate [Pulse Oximeter] 87 Respiratory Rate 16 Blood Pressure Blood Pressure [Le ft Arm] Blood Pressure [Ri ght Upper Arm] 151/97 H Pulse Oximetry 96 92 91 Oxygen Delivery Me thod Room Air 12/12/24 23:04 12/12/24 23:15 12/12/24 23:30 Temperature Pulse Rate 88 86 84 Pulse Rate [Pulse Oximeter] Respiratory Rate Blood Pressure Blood Pressure [Le ft Arm] Blood Pressure [Ri ght Upper Arm] Pulse Oximetry 91 90 91 Oxygen Delivery Me thod 12/12/24 23:39 12/12/24 23:48 12/13/24 00:00 Temperature Pulse Rate 84 81 Pulse Rate [Pulse Oximeter] Respiratory Rate Blood Pressure Blood Pressure [Le ft Arm] Blood Pressure [Ri ght Upper Arm] Pulse Oximetry 93 90 91 Oxygen Delivery Me thod 12/13/24 00:15 12/13/24 00:24 12/13/24 00:30 Temperature Pulse Rate 88 80 80 Pulse Rate [Pulse Oximeter] Respiratory Rate Blood Pressure 158/82 H Blood Pressure [Le ft Arm] Blood Pressure [Ri ght Upper Arm] Pulse Oximetry 91 94 90 Oxygen Delivery Me thod 12/13/24 00:54 12/13/24 00:55 12/13/24 01:00 Temperature Pulse Rate 87 76 82 Pulse Rate [Pulse Oximeter] Respiratory Rate 16 Blood Pressure 150/74 H Blood Pressure [Le ft Arm] Blood Pressure [Ri ght Upper Arm] Pulse Oximetry 92 94 93 Oxygen Delivery Me thod 12/13/24 01:15 12/13/24 01:32 12/13/24 01:45 Temperature Pulse Rate 76 91 92 Pulse Rate [Pulse Oximeter] Respiratory Rate Blood Pressure Blood Pressure [Le ft Arm] Blood Pressure [Ri ght Upper Arm] Pulse Oximetry 92 95 92 Oxygen Delivery Me thod 12/13/24 02:23 12/13/24 02:23 12/13/24 03:00 Temperature 98.6 F Pulse Rate 71 Pulse Rate [Pulse Oximeter] 80 Respiratory Rate 16 16 Blood Pressure Blood Pressure [Le ft Arm] 145/87 H Blood Pressure [Ri ght Upper Arm] Pulse Oximetry 97 92 Oxygen Delivery Me thod Room Air Room Air Labs Labs: Laboratory Results - last 24 hr 12/12/24 12/12/24 12/12/24 22:40 22:52 23:10 WBC 10.14 RBC 4.46 Hgb 14.2 Hct 40.3 MCV 90 MCH 32 MCHC 35 RDW Coeff of John 12.6 Plt Count 137 L Neut % (Auto) 90.2 H Lymph % (Auto) 3.6 L [place] % (Auto) 4.4 Eos % (Auto) 0.0 Baso % (Auto) 0.2 Neut # (Auto) 9.10 H Lymph # (Auto) 0.40 L [place] # (Auto) 0.40 Eos # (Auto) 0.00 Baso # (Auto) 0.02 Abs Immat Gran (auto) 0.16 Imm/Tot Granulo (auto) 1.6 INR 1.04 APTT 29 VBG pH 7.412 VBG pCO2 42 VBG pO2 41.9 VBG HCO3 27 Sodium 135 Potassium 3.6 Chloride 100 Carbon Dioxide 26 Anion Gap 9 BUN 18 Creatinine 0.9 Estimated GFR 87 Glucose 359 H* Hemoglobin A1c 9.9 H Lactate 1.7 Calcium 8.7 Total Bilirubin 0.8 Direct Bilirubin 0.2 AST 32 ALT 17 Alkaline Phosphatase 89 Troponin I 0.07 H* C-Reactive Protein 1.6 H NT-Pro-B Natriuret Pep 2010 Total Protein 6.5 Albumin 3.9 Lipase 12 L Urine Color Urine Appearance Urine pH Ur Specific [place] Urine Protein Urine Glucose (UA) Urine Ketones Urine Blood Urine Nitrite Urine Bilirubin Urine Urobilinogen Ur Leukocyte Esterase Urine RBC Urine WBC Ur Squamous Epith Cells Amorphous Sediment Urine Bacteria Hyaline Casts Urine Mucus SARS-CoV-2 (PCR) Negative SARS-CoV-2 Influenza Type A (PCR) Negative PCR FLU A Influenza Type B (PCR) Negative PCR FLU B RSV (PCR) Negative PCR RSV Lab Acknowledgement POC Glucose 378 H* 12/12/24 12/13/24 12/13/24 23:45 01:05 08:21 WBC RBC Hgb Hct MCV MCH MCHC RDW Coeff of John Plt Count Neut % (Auto) Lymph % (Auto) [place] % (Auto) Eos % (Auto) Baso % (Auto) Neut # (Auto) Lymph # (Auto) [place] # (Auto) Eos # (Auto) Baso # (Auto) Abs Immat Gran (auto) Imm/Tot Granulo (auto) INR APTT VBG pH VBG pCO2 VBG pO2 VBG HCO3 Sodium Potassium Chloride Carbon Dioxide Anion Gap BUN Creatinine Estimated GFR Glucose Hemoglobin A1c Lactate Calcium Total Bilirubin Direct Bilirubin AST ALT Alkaline Phosphatase Troponin I 0.07 H* C-Reactive Protein NT-Pro-B Natriuret Pep Total Protein Albumin Lipase Urine Color Yellow Urine Appearance Clear Urine pH 5.5 Ur Specific [place] 1.020 Urine Protein 1+ A Urine Glucose (UA) 2+ A Urine Ketones 1+ A Urine Blood 3+ A Urine Nitrite Negative Urine Bilirubin Negative Urine Urobilinogen 0.2 Ur Leukocyte Esterase Negative Urine RBC 0-2 Urine WBC 0-2 Ur Squamous Epith Cells Few Amorphous Sediment Few A Urine Bacteria Few A Hyaline Casts Few Urine Mucus Few A SARS-CoV-2 (PCR) Influenza Type A (PCR) Influenza Type B (PCR) RSV (PCR) Lab Acknowledgement Test Added POC Glucose
[2024-12-13] MEDS: MEMANTINE HCL 10 MG TABLET 5 MG PO (09:42)
[2024-12-13] MEDS: AMLODIPINE 10 MG TABLET PO (09:42)
[2024-12-13] MEDS: INSULIN PROT/ASP (NOVOLOG 70/30) 100 UNIT/ML 15 UNIT SUBCUT ×2 (09:43→20:29)
[2024-12-13] MEDS: ASPIRIN 81 MG TABLET EC PO (09:43)
[2024-12-13] MEDS: SODIUM CHLORIDE 0.9 % (FLUSH) 10 ML SYRINGE 5 ML IVF ×2 (09:43→20:30)
[2024-12-13] MEDS: BENAZEPRIL 10 MG TABLET 20 MG PO (09:43)
[2024-12-13] MEDS: MAGNESIUM OXIDE 400 MG TABLET 200 MG PO (09:45)
[2024-12-13 09:46] LABS: Magnesium* 1.7 mg/dL (1.5-2.6)
[2024-12-13 09:54] LABS: Free T4 Free Thyroxine* 1.99 ng/dL (0.70-1.85)
[2024-12-13 10:18] LABS: Thyroid Stimulating Hormone* < 0.015 uIU/mL (0.270-4.20)
[2024-12-13] MEDS: INSULIN ASPART 100 UNIT/ML SUBCUT ×3 (13:59→20:28)
[2024-12-13] MEDS: methIMAzole 5 MG TABLET 15 MG PO (13:59)
--- NOTE | 2024-12-13 15:19 | PC.SOCIAL ---
Discharge Planning: SW spoke with patient's to determine if she has a preference for a home health care agency and if she has worked with any in the past. Patient's states she has no preference and has not worked with any. SW contacted [facility] and they are not accepting new referrals at this time. SW contacted [facility] and they are currently reviewing. SW contacted [facility] and they have openings at this time. SW to complete referral when orders are placed. SW to support patient throughout hospitalization.
--- NOTE | 2024-12-13 19:15 | PC.NURSE ---
End of shift [id number] ? Pt alert, oriented to self only, and cooperative. Requested to be left to sleep during the first part of shift. Up with standby assistance and straight cane. Observed to ambulate in halls with PT and to bathroom with medical staff. Pt required repeat education for call light use, frequently set off bed and chair alarms. Tolerating RA, regular diet/ fluids. Denies pain, SOB, n/v. Appears to be resting comfortably in bed at end of shift with call light within reach.
[2024-12-13] MEDS: ENOXAPARIN 40 MG/0.4 ML INJ SUBCUT (20:27)
[2024-12-13] MEDS: INSULIN ASPART 100 UNIT/ML 10 UNIT SUBCUT (21:48)
[2024-12-14 03:00] VITALS: BP 134/85; PULSE 78; RESP 18; TEMP 36.6; O2SAT 99
--- NOTE | 2024-12-14 06:49 | PC.NURSE ---
Pt alert, oriented to self and vitally stable. Pt has baseline dementia and is unable to use call light appropriately, bed alarm in use. BG check at 2100 was 399, MD notified (Maloney), see orders. Recheck at 0200 was 90. Tele showed NSR with 1st degree AV. Pt move via SBA with cane, tolerates well. No BM on shift. Pt in bed, appears to be resting, call light within reach.
[2024-12-14 07:00] VITALS: BP 105/73; PULSE 82; PULSE 84; RESP 18; TEMP 36.5; O2SAT 100
[2024-12-14 07:43] VITALS: PULSE 82
[2024-12-14] MEDS: BENAZEPRIL 10 MG TABLET 20 MG PO (08:59)
[2024-12-14] MEDS: ASPIRIN 81 MG TABLET EC PO (09:00)
[2024-12-14] MEDS: cefuroxime axetiL 500 MG TABLET PO (09:00)
[2024-12-14] MEDS: AMLODIPINE 10 MG TABLET PO (09:00)
[2024-12-14] MEDS: MAGNESIUM OXIDE 400 MG TABLET 200 MG PO (09:00)
[2024-12-14] MEDS: SODIUM CHLORIDE 0.9 % (FLUSH) 10 ML SYRINGE 5 ML IVF (09:01)
[2024-12-14] MEDS: MEMANTINE HCL 10 MG TABLET 5 MG PO (09:01)
[2024-12-14] MEDS: methIMAzole 5 MG TABLET 15 MG PO (09:01)
[2024-12-14] MEDS: INSULIN PROT/ASP (NOVOLOG 70/30) 100 UNIT/ML 30 UNIT SUBCUT (09:02)
[2024-12-14] MEDS: INSULIN ASPART 100 UNIT/ML SUBCUT (09:02)
--- NOTE | 2024-12-14 09:23 | P.DS_ITS ---
DS: Providers Provider Date Seen: 12/14/24 Date of admission: 12/13/24 02:08 Primary care physician: Luis Felipe Curry MD Admitting Clinician: Jasson Mills MD Consults: 12/13/24 03:00 Consult to Physical Therapy [CONS] Routine Comment: Reason(s) for PT Consult:: Balance Assessment Any Restrictions?:: No Restrictions Consult to Patient Care Technician [CONS] Routine Comment: Reason for Consult:: Discharge Planning Needs 12/13/24 09:05 Consult to Occupational Therapy [CONS] Routine Comment: Reason(s) for OT Consult:: Evaluate and Treat Any Restrictions?:: No Restrictions Comment: MOCA? Attending Physician on discharge: Melody Plaza MD [facility] Date of Discharge: 12/14/24 DS: Diagnosis Discharge Diagnosis (1) Acute delirium: Status: Acute Problem details: -Episode late 12/12 where he locked the bathroom door and then became confused and unable to rise from the toilet and open the door. EMS was able to open the door and cue and help him to stand and he walked to the ambulance. -UTI, untreated hyperthyroidism, poorly controlled diabetes, worsening dementia likely all played a role; resolved back to baseline 12/14/24. (2) Dementia: Status: Acute Problem details: mod-severe reduce polypharmacy Home Health: chcf, OT, bath aide, social worker assistant all ordered at discharge. (3) Acute UTI (urinary tract infection): Status: Acute Problem details: -taylor-sensitive ECOLI. will treat with oral cefuroxime for a week. (4) Poorly controlled diabetes mellitus: Status: Acute Problem details: A1C 9.9 noncompliance with diet and medications The 70/25 is not a routine formulary and is special ordered; we suggest 70/30 BID scheduled and adding oral januvia (few side effects and slows cognitive decline). The januvia can be uptitrated to 100mg daily. (5) Hyperthyroidism: Status: Acute Problem details: -c/w hx of Graves - starting methimazole 15mg daily. This wasn't previously treated but is reasonable to treat with a daily oral medication. -from 06/13 - present his TSH has been undetectable. -uptake exam (07/13) c/w with graves. (6) Left bundle branch block (LBBB): Status: Acute Problem details: -unclear if this is new or chronic -at this time will not investigate given his care goals (7) Hypertension: Status: Acute Problem details: -continue dual therapy with CCB/ACEI (8) Hyperlipidemia: Status: Acute Problem details: -last checked in 08/14 -not on medication (9) Diabetic peripheral neuropathy: Status: Acute Problem details: -lyrica most recently at 50mg BID - on hold. Previously on gabapentin. will keep on hold at discharge; replace with scheduled tylenol and have PCP reassess his pain at followup. DS: Summary Hospital Course Hospital Course: FINAL DIAGNOSIS/FOLLOW UP ISSUES: 1. Acute delirium: Superimposed on severe dementia. Likely multifactorial: Poorly controlled type 2 diabetes, acute UTI, untreated hyperthyroidism. His delirium has resolved, he is being discharged at his baseline. We arranged for a comprehensive home health service. This will include chcf for medication adherence/administration, OT for home safety eval, medical physics researcher for the continued resources that will be needed in advancing dementia, home health aide for [employer] cares. We have continued his memantine at 5 mg Q a.m.. PCP to decide if this med is effective and should be continued. 2. Acute cystitis: Pansensitive E coli isolated on urine culture. Oral cefuroxime prescribed for 1 week. 3. Type 2 diabetes: We initiated Januvia at 50 mg daily and scheduled b.i.d. 70/30 insulin in pre filled syringes at 30 units b.i.d. previously he had been on 70/25 insulin vials, this was a special order and more difficult for him to be compliant with. 4. Hyperthyroidism: methimazole at 15 mg p.o. q.day 5. Left bundle branch block: Noted on admission ECG. This appears to be a new finding but how new is unknown. Troponin was negative upon admission. He did not complain of any acute cardiovascular symptoms or shortness of breath. He was hemodynamically stable throughout his admission. His echocardiogram done in 2021 was unremarkable. Given his goals of care no further workup was initiated a recommended. BRIEF HOSPITAL COURSE: Patient was admitted for two days. Synopsis of acute inpatient issues are outlined above. Chronic medical conditions with notable findings outlined above. Alex' dementia continues to decline. Was admitted with an acute delirium superimposed on his known dementia. We identified an acute UTI, poorly controlled type 2 diabetes and untreated hyperthyroidism. These are addressed above. He returned to his baseline. We focused on simplifying his medication regimen and ordering a comprehensive home health program. Most notably we changed his insulin as described above. We started on oral anti-hyperglycemic known to be safe in the elderly and beneficial to demented patients. We recommended treating his hyperthyroidism. DISCHARGE MEDICATIONS: See Reconciled list - SIGNIFICANT CHANGES: Insulin changes described above Initiating Januvia Initiating methimazole at 15mg short term antibiotic therapy for UTI Specific instructions to the patient and follow-up are outlined below. REVIEW OF SYSTEMS No new chest pain or dyspnea Pain controlled No voiding difficulties Tolerating diet challenge PHYSICAL EXAM: CONSTITUTIONAL: Happily confused. GENERAL: Well-developed and above ideal body weight, in no respiratory distress. VITAL SIGNS: see record. HEENT: Sclerae are anicteric. No petechiae. CARDIAC: rhythm is regular. There is no S3 or rub. No harsh murmurs. Extremities show trace edema with symmetrical pulses. PULM: good air entry with no wheeze. NEURO: Orientated to person only. No focal neuro findings. SKIN: No rashes, petechiae, concerning changes PSYCHIATRIC: Euthymic. DISPOSITION: Home with . Home Health ordered. Time spent on discharge 37 minutes. Status at Discharge Functional status at discharge: uses cane/walker Overall status at discharge: patient is progressing back to baseline Time Spent with Patient Time attestation: Total time spent providing and/or coordinating discharge services: Time spent: Greater than 30 minutes Exam Const: Vital Signs, click to edit/add: Vital Signs - 24 hr 12/13/24 15:00 12/13/24 16:21 12/13/24 19:00 Temperature 97.5 F L 98.1 F Pulse Rate 80 Pulse Rate [Pulse Oximeter] 86 89 Respiratory Rate 18 16 Blood Pressure [Le ft Arm] 149/74 H 139/69 Blood Pressure [Ri ght Arm] Pulse Oximetry 99 98 Oxygen Delivery Me thod Room Air Room Air 12/13/24 23:00 12/13/24 23:00 12/13/24 23:00 Temperature 97.7 F Pulse Rate 94 Pulse Rate [Pulse Oximeter] 97 97 Respiratory Rate 18 18 Blood Pressure [Le ft Arm] 164/91 H Blood Pressure [Ri ght Arm] Pulse Oximetry 97 Oxygen Delivery Me thod Room Air 12/14/24 03:00 12/14/24 07:00 12/14/24 07:43 Temperature 97.8 F 97.7 F Pulse Rate 82 Pulse Rate [Pulse Oximeter] 78 84 Respiratory Rate 18 18 Blood Pressure [Le ft Arm] 134/85 Blood Pressure [Ri ght Arm] 105/73 Pulse Oximetry 99 100 Oxygen Delivery Me thod Room Air DS: Data Data Completed and Pending Labs on day of discharge: Labs from last 24 hours 12/13/24 12/13/24 12/12/24 09:24 09:06 23:10 Magnesium 1.7 TSH < 0.015 L Free T4 1.99 H Free T3 pg/dL Pending Thyroid Perox ([facility]) Pending Lab Acknowledgement Test Added Test Added Discharge Plan Discharge Disposition: Home w/ Parent or Adult Date of Admission: 12/13/24 02:08 Attending Provider on Discharge: Melody Plaza Primary Care Provider: Luis Felipe Curry Condition: Improved Anticipated Discharge Date/Time: 12/14/24 12:00 Discharge Medications: New methimazole 5 mg Tablet 15 mg PO DAILY Qty: 30 0RF insulin asp prt-insulin aspart [Novolog Mix 70-30FlexPen U-100] 100 unit/mL (70-30) Insulin Pen 30 unit subcut BIDWM Qty: 15 11RF Januvia 50 mg tablet 50 mg PO DAILY Qty: 30 0RF cefuroxime axetil 500 mg Tablet 500 mg PO BIDWM Qty: 13 0RF acetaminophen 650 mg tablet extended release 1,300 mg PO Q12H Qty: 60 11RF Continued aspirin 81 mg tablet,delayed release (DR/EC) 81 mg PO DAILY magnesium 200 mg tablet 200 mg PO QDAY metronidazole 0.75 % cream topical DAILY PRN (DME) pen needle, diabetic [BD Ultra-Fine Mayra Pen Needle] 32 gauge x 5/32 needle See Rx Instructions .Route Qty: 100 3RF Rx Instructions: 1 EA QID (DME) Contour Next Test Strips Strip See Rx Instructions .Route Qty: 200 3RF Rx Instructions: Use to test blood sugar twice daily (DME) lancets [Microlet Lancet] Misc See Rx Instructions .Route Qty: 200 3RF Rx Instructions: Use to test blood sugar twice daily memantine 5 mg tablet 5 mg PO QAM 90 Days Qty: 90 3RF amlodipine-benazepril 10-20 mg capsule 1 cap PO DAILY Qty: 90 1RF Held pregabalin [Lyrica] 50 mg capsule 50 mg PO BID Qty: 60 0RF Hold Instructions: Resume on 12/28/24. Hold lyrica for the next two weeks and reassess his need for this medication. He was taking this for diabetic foot and leg pain (neuropathy) and if he doesn't need this medication let's keep it off. Dr. Curry to advise. Discontinued multivitamin Tablet 1 tab PO QAM omega 3-hld-jgx-fish oil [Fish Oil] 300-1,000 mg capsule 1 cap PO QDAY Humalog Mix 75-25(U-100)Insuln 100 unit/mL (75-25) suspension 25 unit subcut .WITH MEALS tramadol 50 mg tablet 50 mg PO TID PRN (Reason: pain) Qty: 60 0RF hydrochlorothiazide 25 mg tablet 25 mg PO QAM Qty: 90 0RF Discharge Orders: Discharge Order (Routine); Ordered 12/14/24 Ordered By: Melody Plaza Patient Education: Methimazole (By mouth) (Tapazole), Insulin Aspart Protamine/Insulin Aspart (By injection) (NovoLOG Mix..., Sitagliptin (By mouth) (JanuviaHeladiotuvio), Diabetic Hyperglycemia (DC) Additional Instructions: 1. [facility] will coordinate my order for Home Health (OT home safety eval, [facility] for diabetic management, medical physics researcher for continued assistance with severe dementia, and bath aide) 2. We really tried to simplify his medication management. Please see list and home health nurse will assist and set up routine for you. 3. We did find that Alex has a UTI (urinary tract infection) - this may have led to his confusion. We will treat for 1 week with antibiotics. 3. Dr. Curry will assist with questions and changes needed to the discharge plan. Activity Level: Activity as Tolerated Discharge Diet: Diabetic Follow Up Appointments: Luis Felipe Curry MD [Primary Care Provider] - 12/21/24 2:15 pm ([facility] for hospital follow-up.) Forms: [employer] Info Instructions
--- NOTE | 2024-12-14 10:25 | PC.SOCIAL ---
Discharge Planning: GÓMEZ spoke with [facility] who states they can accept patient and meet with him tomorrow at home. They did not have a specified time, but will connect with the family. GÓMEZ spoke with patient's and informed her of the home health services set up. GÓMEZ informed she would give information to patient's RN to provide to at discharge that has the name and number for [facility]. GÓMEZ provided this to RN. had questions about when she could pick patient up as she hasn't heard from anyone today. GÓMEZ explained she would have someone reach out. GÓMEZ notified RN. GÓMEZ to assist with other needs as they arise prior to discharge.
[2024-12-14 10:50] LABS: Thyroid Peroxidase (TPO) Ab <0.3 IU/mL (0.0-9.0)
--- NOTE | 2024-12-14 12:11 | PC.NURSE ---
Discharge-- Pleasant and cooperative patient discharged to home with at approximately 1215. VSS and pt is afebrile. SPO2 maintained >90% on RA. He denied any pain. Oriented to person only as per his baseline dementia. LS CTA. Telemetry showed NSR with 1st degree AV block and BBB. He denied nausea and ate 100% of a regular diet without difficulty. BG 245 this morning and pt was given insulin per MD orders. He was up to the BR with SBA and cane and tolerated it well. Discharge education was given including diagnosis info, symptoms to report, medications and follow up plan. Pt's stated that she has not had diabetic education because patient has been able to manage his diabetes independently until recently. She was given a brief overview and sent home with care notes, and instructed to ask for repeat/ more thorough education with home care nurse and PCP. All questions answered. SL was removed with tip intact.
[2024-12-14 16:51] LABS: Free T3 3.8 pg/mL (2.5-4.3)
== END 2024-12-14 12:08 | disposition home or self-care (01) ==
LOC: ED 12-13 02:03 → MEDSURG 12-13 02:10
PROVIDERS: Family Medicine; Admitting Provider Student in an Organized Health Care Education/Training Program; Emergency Provider Family Medicine; PCP Internal Medicine; Visit Provider Student in an Organized Health Care Education/Training Program
DX: R53.1 Weakness (principal); E11.65 Type 2 diabetes mellitus with hyperglycemia; N39.0 Urinary tract infection, site not specified; N48.1 Balanitis; B96.20 Unspecified Escherichia coli [E. coli] as the cause of diseases classified elsewhere; Z79.82 Long term (current) use of aspirin; I10 Essential (primary) hypertension; R09.02 Hypoxemia; R94.31 Abnormal electrocardiogram [ECG] [EKG]; E11.42 Type 2 diabetes mellitus with diabetic polyneuropathy; Z79.4 Long term (current) use of insulin; I44.7 Left bundle-branch block, unspecified; R41.0 Disorientation, unspecified; F03.B0 Unspecified dementia, moderate, without behavioral disturbance, psychotic disturbance, mood disturbance, and anxiety; E05.90 Thyrotoxicosis, unspecified without thyrotoxic crisis or storm; E78.5 Hyperlipidemia, unspecified; K52.9 Noninfective gastroenteritis and colitis, unspecified; R79.89 Other specified abnormal findings of blood chemistry
CPT/HCPCS: 36415; 71046; 80048; 80076; 81001; 82803; 82947; 82962; 83036; 83605; 83690; 83735; 83880; 84439; 84443; 84481; 84484; 85025; 85610; 85730; 86140; 86376; 87045; 87046; 87086; 87427; 87493; 87631; 93005; 94761; 96360; 96361; 96372; 97116; 97161; 97165; 97535; 99284; 99285; A9270; G0378; J1650; J7030

== ENCOUNTER 2025-01-25 13:05 | Outpatient (CLI) | payer MEDICARE, BC, SELFPAY | END 2025-01-25 13:06 | disposition home or self-care (01) | LOC: NFLDREF 13:06 | PROVIDERS: PCP Internal Medicine; Visit Provider Internal Medicine | DX: E11.65 Type 2 diabetes mellitus with hyperglycemia (principal); Z79.4 Long term (current) use of insulin | CPT/HCPCS: 80048 ==